=== PATIENT | female | born 1955 | race Caucasian/White ===

== ENCOUNTER 2018-01-19 12:03 | Emergency (ER) | payer OTHER ==
[2018-01-19 12:17] VITALS: BP 129/70; PULSE 84; RESP 18; TEMP 97.8
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
== END 2018-01-19 13:18 | disposition home or self-care (01) ==
LOC: EC 12:03
DX: M25.512 Pain in left shoulder (principal); M25.552 Pain in left hip; Z79.891 Long term (current) use of opiate analgesic; Z79.899 Other long term (current) drug therapy; Z98.890 Other specified postprocedural states; V49.49XA Driver injured in collision with other motor vehicles in traffic accident, initial encounter; Y93.89 Activity, other specified
CPT/HCPCS: 72100; 73502; 99284

== ENCOUNTER → 2019-07-20 | Outpatient (CLI) | payer OTHER ==
[2019-07-20 13:26] VITALS: BP 145/94; PULSE 88; RESP 18; TEMP 98; BMI 44.6
--- NOTE | 2019-07-20 14:23 | P.HPOB ---
History of Present Illness H&P Date: 07/20/19 Chief Complaint: The patient is here for her routine gynecologic exam and ma mmogram. This is a 64-year-old with an LMP of 2010. The patient is here to establish with this office. The patient is without gynecologic complaints and denies any postmenopausal bleeding. Review of Systems The patient believes she has gained about 13 pounds over the past year. She states her weight does fluctuate quite a bit during the year. She states her ty pical weight is 255 pounds. She denies respiratory, cardiac, or GI problems. 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 She used HRT from about 5794-4870. History of Any Multi-Drug Resistant Organisms: None Reported Past Surgical History: Back Surgery, Cholecystectomy, Orthopedic Surgery, To nsillectomy Additional Past Surgical History / Comment(s): [id number] (2nd, next after 10yrs), D&C. Past Anesthesia/Blood Transfusion Reactions: Previous Problems w/ Anesthesia, Motion Sickness, Postoperative Nausea & Vomiting (PONV) Additional Past Anesthesia/Blood Transfusion Reaction / Comment(s): NEVER HAS HAD BLOOD TRANSFUSION Past Psychological History: No Psychological Hx Reported Smoking Status: Never smoker Past Alcohol Use History: Rare (3 per year) Past Drug Use History: None Reported Additional History: She has been since 2013 and this is her third marriage. 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 - Past Family History Father Family Medical History: Cancer, COPD, Myocardial Infarction ([place]) Additional Family Medical History / Comment(s): MULT MYELOMA- AT AGE 84 Mother Family Medical History: Coronary Artery Disease (CAD), Diabetes Mellitus, Myocardial Infarction ([place]) Additional Family Medical History / Comment(s): LIVING AT AGE 81,HEART STENTS X 5 Medications and Allergies Home Medications Medication Instructions Recorded Confirmed Type Gabapentin [Neurontin] 300 mg PO DAILY 08/04/14 07/20/19 History Acetaminophen [Tylenol] 325 mg PO DAILY PRN 07/20/19 07/20/19 History Ibuprofen [Motrin] 800 mg PO BID 07/20/19 07/20/19 History Levothyroxine Sodium 100 mcg PO DAILY 07/20/19 07/20/19 History Phentermine HCl [Adipex-P] 37.5 mg PO AC-BRKFST 07/20/19 07/20/19 History buPROPion [Wellbutrin] 1 tab PO DAILY 07/20/19 07/20/19 History Allergies Allergy/AdvReac Type Severity Reaction Status Date / Time No Known Allergies Allergy Verified 07/20/19 13:26 Exam Vital Signs Temp Pulse Resp BP Pulse Ox 07/20/19 13:22 98.0 F 88 18 145/94 95 Intake and Output 07/19/19 07/20/19 07/20/19 22:59 06:59 14:59 Other: Weight 121.563 kg Repeat blood pressure 146/90. Height 5 feet 5 inches, weight 268 pounds, BMI 44.6. This is a well-developed well-nourished heavyset white female who is alert and oriented times 3 in no acute distress. HEENT: Within normal limits. NECK: Supple without mass or thyromegaly. CHEST AND LUNGS: Clear to auscultation. HEART: Regular rate and rhythm. BREASTS: Are without mass or discharge. AXILLARY EXAM: Negative for adenopathy. BACK: Negative for CVA tenderness. ABDOMEN: Soft, obese, nontender, without palpable masses. PELVIC EXAM: Normal external genitalia with mild atrophy. Cervix and vagina appear normal mild atrophy. There is no unusual discharge. There is no evidence of prolapse. The uterus is midposition, nongravid size and nontender. There are no palpable adnexal masses or tenderness. Bimanual examination is somewhat limited secondary to her size. RECTAL EXAM: Rectovaginal exam is negative for mass or tenderness and is negative for occult blood. EXTREMITIES: Nontender. IMPRESSION: 1. 64-year-old menopausal female with normal gynecologic exam. 2. Elevated blood pressure PLAN: 1. Pap smear was performed. 2. Self breast awareness was discussed with the patient. 3. Screening mammogram will be done today. 4. Osteoporosis prevention was discussed. I have stressed the importance of adequate calcium, vitamin D and regular exercise. Recommended amounts of calcium and vitamin D were also discussed. 5. I have recommended that she check her own blood pressures on a regular basis and follow-up with Dr. Matthew for blood pressure elevations. 6. She was advised to return in one year for her annual well woman exam.
--- NOTE | 2019-07-22 10:04 | MM ---
Reason for exam: screening (asymptomatic). Last mammogram was performed 3 years and 4 months ago. History: Patient is postmenopausal. Family history of breast cancer in paternal aunt at age 60. Took estrogen for 3 years beginning at age 55. Took progesterone for 3 years beginning at age 55. Physical Findings: A clinical breast exam by your physician is recommended on an annual basis and results should be correlated with mammographic findings. MG 3D Screening Mammo W/Cad Bilateral CC and MLO view(s) were taken. Prior study comparison: March 22, 2016, bilateral MG 3d screening mammo w/cad. September 24, 2013, bilateral digital screening mammo w/CAD. There are scattered fibroglandular densities. There is no discrete abnormality. No significant changes when compared with prior studies. ASSESSMENT: Negative, BI-RAD 1 RECOMMENDATION: Routine screening mammogram of both breasts in 1 year.
--- NOTE | 2019-07-27 18:35 | P.PN ---
Progress Note - Text Progress Note Date: 07/27/19 OUTPATIENT FOLLOW-UP NOTE TEST(S)/RESULTS: test results from 07/20/2019 include negative Pap smear and benign mammogram. METHOD OF NOTIFICATION: the patient was notified by phone. PATIENT COMMENTS: the patient is happy to hear these results. DIAGNOSIS: negative Pap smear and benign mammogram. DISCUSSION: The patient states she had a bone density test done which was normal in 2014. I have recommended that she repeat the bone density testing in 2019. PLAN: the patient is to return in one year for her annual well woman exam. Bone density test in 1 year.
== END | disposition home or self-care (01) ==
LOC: WWCWWP 13:13
PROVIDERS: ATTEND Obstetrics & Gynecology
DX: Z12.31 Encounter for screening mammogram for malignant neoplasm of breast (principal)
CPT/HCPCS: 77063; 77067

== ENCOUNTER 2020-08-19 16:45 | Inpatient (IN) | payer OTHER ==
[2020-08-19] MEDS ORDERED: ACETAMINOPHEN TAB 500 MG TAB PO STA (17:07)
[2020-08-19] MEDS ORDERED: ALBUTEROL HFA INHALER INHALATION STA (17:07)
--- NOTE | 2020-08-19 17:44 | ED ---
General Adult HPI - General Chief complaint: Shortness of Breath Stated complaint: SOB Time Seen by Provider: 08/19/20 16:55 Source: patient, RN notes reviewed, old records reviewed Mode of arrival: wheelchair Limitations: no limitations - History of Present Illness Initial comments: 65-year-old female presents emergency department today with complaints of weakness and shortness of breath. Patient reports that her entire family has cold that infection however her test was negative. She states that she seems to be the sickest with worsening difficulty breathing. Patient has a at-home pulse oximeter reportedly was 78 and one time today. She went to the emergency department with a pulse ox of 85% on room air. She reports that she has history of bronchitis but is a nonsmoker. Patient states that she has been seen by her primary care doctor and prescribed azithromycin, hydroxychloroquine as well as steroids. She reports despite taking his medications or symptoms seem to be worsening shortness of breath. - Related Data Home Medications Medication Instructions Recorded Confirmed Ibuprofen [Motrin] 800 mg PO TID 07/20/19 08/19/20 Levothyroxine Sodium 100 mcg PO DAILY 07/20/19 08/19/20 Phentermine HCl [Adipex-P] 37.5 mg PO AC-BRKFST 07/20/19 08/19/20 Dexamethasone [Decadron] 6 mg PO DAILY 08/19/20 08/19/20 Hydroxychloroquine Sulfate See Taper PO DIRECTED 08/19/20 08/19/20 [Plaquenil] Neomycin/Polymyxin B/Dexametha 1 drop LEFT EYE QID 08/19/20 08/19/20 [Itiqnl-Mkdbd-Niqjwlyu Eye Drop] buPROPion XL [Wellbutrin Xl] 150 mg PO DAILY 08/19/20 08/19/20 Allergies Allergy/AdvReac Type Severity Reaction Status Date / Time No Known Allergies Allergy Verified 08/19/20 18:37 Review of Systems ROS Statement: Those systems with pertinent positive or pertinent negative responses have been documented in the HPI. ROS Other: All systems not noted in ROS Statement are negative. 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 She used HRT from about 4152-6346. History of Any Multi-Drug Resistant Organisms: None Reported Past Surgical History: Back Surgery, Cholecystectomy, Orthopedic Surgery, Tonsillectomy Additional Past Surgical History / Comment(s): [id number] (2nd, next after 10yrs), D&C. Past Anesthesia/Blood Transfusion Reactions: Previous Problems w/ Anesthesia, Motion Sickness, Postoperative Nausea & Vomiting (PONV) Additional Past Anesthesia/Blood Transfusion Reaction / Comment(s): NEVER HAS HAD BLOOD TRANSFUSION Past Psychological History: No Psychological Hx Reported Smoking Status: Never smoker Past Alcohol Use History: Rare Past Drug Use History: None Reported - Past Family History Father Family Medical History: Cancer, COPD, Myocardial Infarction ([place]) Additional Family Medical History / Comment(s): MULT MYELOMA- AT AGE 84 Mother Family Medical History: Coronary Artery Disease (CAD), Diabetes Mellitus, Myocardial Infarction ([place]) Additional Family Medical History / Comment(s): LIVING AT AGE 81,HEART STENTS X 5 General Exam - General Exam Comments Initial Comments: Is a 65-year-old female. Patient appears in moderate discomfort saturation was 85% on room air. She is placed on 4 L of oxygen. Limitations: no limitations General appearance: alert, in no apparent distress Head exam: Present: atraumatic, normocephalic, normal inspection Eye exam: Present: normal appearance, PERRL, EOMI. Absent: scleral icterus, conjunctival injection, periorbital swelling ENT exam: Present: normal exam, mucous membranes moist Neck exam: Present: normal inspection. Absent: tenderness, meningismus, lymphadenopathy Respiratory exam: Present: normal lung sounds bilaterally, wheezes. Absent: respiratory distress, rales, rhonchi, stridor Cardiovascular Exam: Present: regular rate, normal rhythm, normal heart sounds. Absent: systolic murmur, diastolic murmur, rubs, gallop, clicks GI/Abdominal exam: Present: soft, normal bowel sounds. Absent: distended, tenderness, guarding, rebound, rigid Extremities exam: Present: normal inspection, full ROM, normal capillary refill. Absent: tenderness, pedal edema, joint swelling, calf tenderness Back exam: Present: normal inspection Neurological exam: Present: alert, oriented X3, CN II-XII intact Psychiatric exam: Present: normal affect, normal mood Skin exam: Present: warm, dry, intact, normal color. Absent: rash Course Vital Signs 08/19/20 08/19/20 16:47 19:38 Temperature 98.4 F 98.1 F Pulse Rate 84 67 Respiratory 20 22 Rate Blood Pressure 129/83 138/79 O2 Sat by Pulse 88 L 95 Oximetry EKG Findings - EKG Comments: EKG Findings:: EKG performed at 1823 shows normal sinus rhythm. Possible atrial enlargement. Left ventricular hypertrophy. Ventricularly of 71 bpm. Was 1:30 milliseconds. QRS duration is 84 ms. QT QTc is 400/434 ms. Medical Decision Making - Medical Decision Making 65-year-old female presents emergency room today with fatigue shortness of b reath. She is not hypoxic with oxygen saturation 85% on room air. She is placed on 4 L of oxygen has some improvement. Chest x-ray shows bilateral pneumonia. Her family tested positive for cocaine. However her initial test was negative. She will be retested today. Patient's labs are otherwise reviewed d-dimer was normal. Plantar markers are elevated. Patient's case was discussed with Dr. Ackerman whom discussed the case with Dr. crane to agrees for admission. Patient will be admitted at this time with IV fluids and oxygen supplementation. She was started on steroids and Rocephin. - Lab Data Result diagrams: 08/19/20 18:30 08/19/20 18:30 Lab Results 08/19/20 08/19/20 08/19/20 Range/Units 18:30 18:30 18:30 WBC 12.6 H (3.8-10.6) k/uL RBC 4.96 (3.80-5.40) m/uL Hgb 15.1 (11.4-16.0) gm/dL Hct 45.2 (34.0-46.0) % MCV 91.0 (80.0-100.0) fL MCH 30.4 (25.0-35.0) pg MCHC 33.4 (31.0-37.0) g/dL RDW 13.3 (11.5-15.5) % Plt Count 472 H (150-450) k/uL MPV 6.3 Neutrophils % 84 % Lymphocytes % 11 % Monocytes % 3 % Eosinophils % 1 % Basophils % 1 % Neutrophils # 10.6 H (1.3-7.7) k/uL Lymphocytes # 1.4 (1.0-4.8) k/uL Monocytes # 0.3 (0-1.0) k/uL Eosinophils # 0.1 (0-0.7) k/uL Basophils # 0.1 (0-0.2) k/uL PT 9.3 (9.0-12.0) sec INR 0.9 (<1.2) APTT 24.3 (22.0-30.0) sec D-Dimer 0.38 (<0.60) mg/L FEU Sodium 135 L (137-145) mmol/L Potassium 4.6 (3.5-5.1) mmol/L Chloride 102 (98-107) mmol/L Carbon Dioxide 28 (22-30) mmol/L Anion Gap 5 mmol/L BUN 20 H (7-17) mg/dL Creatinine 0.50 L (0.52-1.04) mg/dL Est GFR (CKD-EPI)AfAm >90 (>60 ml/min/1.73 sqM) Est GFR (CKD-EPI)NonAf >90 (>60 ml/min/1.73 sqM) Glucose 166 H (74-99) mg/dL Plasma Lactic Acid Jossue (0.7-2.0) mmol/L Calcium 8.7 (8.4-10.2) mg/dL Magnesium 2.1 (1.6-2.3) mg/dL Total Bilirubin 0.4 (0.2-1.3) mg/dL AST 76 H (14-36) U/L ALT 65 H (4-34) U/L Alkaline Phosphatase 83 (38-126) U/L Lactate Dehydrogenase 1038 H (313-618) U/L C-Reactive Protein 63.0 H (<10.0) mg/L Total Protein 7.0 (6.3-8.2) g/dL Albumin 3.5 (3.5-5.0) g/dL 08/19/20 Range/Units 18:30 WBC (3.8-10.6) k/uL RBC (3.80-5.40) m/uL Hgb (11.4-16.0) gm/dL Hct (34.0-46.0) % MCV (80.0-100.0) fL MCH (25.0-35.0) pg MCHC (31.0-37.0) g/dL RDW (11.5-15.5) % Plt Count (150-450) k/uL MPV Neutrophils % % Lymphocytes % % Monocytes % % Eosinophils % % Basophils % % Neutrophils # (1.3-7.7) k/uL Lymphocytes # (1.0-4.8) k/uL Monocytes # (0-1.0) k/uL Eosinophils # (0-0.7) k/uL Basophils # (0-0.2) k/uL PT (9.0-12.0) sec INR (<1.2) APTT (22.0-30.0) sec D-Dimer (<0.60) mg/L FEU Sodium (137-145) mmol/L Potassium (3.5-5.1) mmol/L Chloride (98-107) mmol/L Carbon Dioxide (22-30) mmol/L Anion Gap mmol/L BUN (7-17) mg/dL Creatinine (0.52-1.04) mg/dL Est GFR (CKD-EPI)AfAm (>60 ml/min/1.73 sqM) Est GFR (CKD-EPI)NonAf (>60 ml/min/1.73 sqM) Glucose (74-99) mg/dL Plasma Lactic Acid Jossue 1.3 (0.7-2.0) mmol/L Calcium (8.4-10.2) mg/dL Magnesium (1.6-2.3) mg/dL Total Bilirubin (0.2-1.3) mg/dL AST (14-36) U/L ALT (4-34) U/L Alkaline Phosphatase (38-126) U/L Lactate Dehydrogenase (313-618) U/L C-Reactive Protein (<10.0) mg/L Total Protein (6.3-8.2) g/dL Albumin (3.5-5.0) g/dL - Radiology Data Radiology results: report reviewed There is no new bilateral interstitial pneumonia compared old exam. Disposition Clinical Impression: COVID-19, Pneumonia, Hypoxia Disposition: ADMITTED IP TO THIS [facility] Condition: Stable Is patient prescribed a controlled substance at d/c from ED?: No Referrals: Noel Mckeon MD [Primary Care Provider] - 1-2 days Time of Disposition: 19:44
--- NOTE | 2020-08-19 18:04 | XR ---
EXAMINATION TYPE: XR chest 1V portable DATE OF EXAM: 08/19/2020 COMPARISON: 07/14/2015 HISTORY: Pneumonia. Short of breath. TECHNIQUE: FINDINGS: There is some interstitial infiltrate in both lungs with some coalescent density left lung base. Heart size is normal. There are no hilar masses. Mediastinum is normal. There is no pleural eff usion. IMPRESSION: There is new bilateral interstitial pneumonia compared to old exam.
[2020-08-19] MEDS ORDERED: SODIUM CHLORIDE 0.9% 1,000 ML IV ONE (18:14)
[2020-08-19] MEDS ORDERED: cefTRIAXone IN SWFI 1,000 MG/10 ML SYRINGE IVP STA (18:15)
[2020-08-19] MEDS ORDERED: cefTRIAXone IN SWFI 1,000 MG/10 ML SYRINGE IVP ONE (18:30)
[2020-08-19 18:48] LABS: Basophils # (A) 0.1 k/uL (0-0.2); Basophils % (A) 1 %; Eosinophils # (A) 0.1 k/uL (0-0.7); Eosinophils % (A) 1 %; HCT 45.2 % (34.0-46.0); HGB 15.1 gm/dL (11.4-16.0); Lymphocytes # (A) 1.4 k/uL (1.0-4.8); Lymphocytes % (A) 11 %; MCH 30.4 pg (25.0-35.0); MCHC 33.4 g/dL (31.0-37.0); Mean Platelet Volume 6.3; Monocytes # (A) 0.3 k/uL (0-1.0); Monocytes % (A) 3 %; Neutrophils # (A) 10.6 k/uL (1.3-7.7); Neutrophils % (A) 84 %; Platelet Count 472 k/uL (150-450); RBC 4.96 m/uL (3.80-5.40); RDW 13.3 % (11.5-15.5); WBC 12.6 k/uL (3.8-10.6)
[2020-08-19 19:01] LABS: ALT 65 U/L (4-34); AST 76 U/L (14-36); African American GFR (CKD) >90 (>60 ml/min/1.73 sqM); Albumin 3.5 g/dL (3.5-5.0); Alkaline Phosphatase 83 U/L (38-126); Anion Gap 5 mmol/L; Blood Urea Nitrogen 20 mg/dL (7-17); Calcium 8.7 mg/dL (8.4-10.2); Carbon Dioxide 28 mmol/L (22-30); Chloride 102 mmol/L (98-107); Glucose 166 mg/dL (74-99); LDH 1038 U/L (313-618); Magnesium 2.1 mg/dL (1.6-2.3); Non-African American GFR(CKD) >90 (>60 ml/min/1.73 sqM); Potassium 4.6 mmol/L (3.5-5.1); Sodium 135 mmol/L (137-145); Total Bilirubin 0.4 mg/dL (0.2-1.3)
[2020-08-19 19:07] LABS: D-Dimer 0.38 mg/L FEU (<0.60); INR 0.9 (<1.2); Partial Thromboplastin Time 24.3 sec (22.0-30.0); Prothrombin Time 9.3 sec (9.0-12.0)
[2020-08-19] MEDS: SODIUM CHLORIDE 0.9% 1,000 ML IV SCH (19:11)
[2020-08-19] MEDS ORDERED: DEXAMETHASONE SOD PHOSPHATE 10 MG/ML 1 ML VIAL IV STA (19:17)
[2020-08-19] MEDS ORDERED: ENOXAPARIN 40 MG/0.4 ML SYRINGE SQ STA (19:18)
[2020-08-19] MEDS ORDERED: NALOXONE 0.4 MG/ML 1 ML VIAL IV PRN (19:45)
[2020-08-19] MEDS ORDERED: ONDANSETRON 4 MG/2 ML VIAL IVP PRN (19:45)
[2020-08-19 23:54] LABS: Ferritin 360.3 ng/mL (10.0-291.0)
[2020-08-20] MEDS: NEOMYCIN-POLYMYXIN-DEXAMETH (3.5-10,000-0.1) DROPS 5 ML BTL LEFT EYE SCH ×3 (02:43→08:27)
[2020-08-20] MEDS: methylPREDNISolone SOD SUCCI 40 MG/ML 1 ML VIAL IV SCH ×4 (03:06→23:26)
[2020-08-20] MEDS: SODIUM CHLORIDE 0.9% 1,000 ML IV SCH ×3 (05:44→23:33)
[2020-08-20] MEDS: LEVOTHYROXINE 100 MCG TAB PO SCH (05:44)
[2020-08-20] MEDS: buPROPion XL 150 MG TAB.ER.24H PO SCH (08:25)
[2020-08-20] MEDS: GABAPENTIN 300 MG CAP PO SCH ×2 (12:13→20:28)
[2020-08-20] MEDS: ENOXAPARIN 40 MG/0.4 ML SYRINGE SQ SCH (12:13)
[2020-08-20] MEDS: FAMOTIDINE 20 MG TAB PO SCH ×2 (13:45→20:29)
[2020-08-20] MEDS: CHOLECALCIFEROL 1,000 UNIT TAB PO SCH (13:45)
[2020-08-20] MEDS: ASCORBIC ACID 500 MG TAB PO SCH (13:45)
[2020-08-20] MEDS: ZINC SULFATE 220 MG CAP PO SCH (13:45)
[2020-08-20] MEDS: ACETAMINOPHEN TAB 325 MG TAB PO PRN (17:23)
--- NOTE | 2020-08-20 23:42 | P.HPIM ---
History of Present Illness H&P Date: 08/20/20 Chief Complaint: Cough History of presenting complaint: This is a 65-year-old patient of Dr. carvalho. Chronic stable medical conditions include hypothyroid, herniated disc. She presented to the ER with complaints of weakness and shortness of breath. Her entire family has the cold and a COVID test was negative. Her pulse ox syndrome and was 78%. And in the ER it was 85%. She is a nonsmoker. Her primary resident care supervisor azithromycin, hydrocodone O'Stanislav and steroids. She took these but the symptoms are not getting any better. Symptoms have been going on for about 10 days. She is also had some fever and chills. Decreased appetite. Decrease in taste and smell. Had some headaches. Has some diarrhea. Also notices beige sputum. Feels a chest tightness for deep breath. Review of systems: GEN.: As above EYES: None HEENT: None NECK: None RESPIRATORY: [As above CARDIOVASCULAR: None GASTROINTESTINAL: [As above GENITOURINARY: None MUSCULOSKELETAL: None LYMPHATICS: None HEMATOLOGICAL: None PSYCHIATRY: None NEUROLOGICAL: None Past medical history to include: Hypothyroid, depression, herniated disc Social history: . Does not smoke or drink alcohol. 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 Physical examination: VITAL SIGNS: 98.4, 84, 20, 129/83, 88% on room air, did drop down to 90% on 6 L GENERAL: BMI 41.6, sitting up, tired. PSYCH: [Alert and oriented x3; mood and affect terri]l. NEUROLOGICAL: Cranial nerves grossly intact. Moving all 4 limbs Rest of the exam as per nursing in ER. INVESTIGATIONS, reviewed in the clinical context: White count 12.6 hemoglobin 15.1 and platelets 472 increased neutrophils d-dimer 0.38 potassium 4.6 bun 20 creatinine 0.50 CRP 63 Coronavirus PCF-detected EKG tracing personally reviewed by me-no sinus rhythm Chest x-ray film personally reviewed by me-bilateral scattered infiltrates Assessment: -Bilateral COVID 19 pneumonia -Possible gram-negative pneumonia, patient has beige sputum and left shift on CBC -Acute hypoxic respiratory failure from above -Hypothyroid -Morbid obesity BMI 41.6 Plan: Oxygen being supplemented. Consult pulmonary and ID. Patient is put on IV Solu-Medrol. Supplementations including zinc Pepcid vitamin C vitamin D been given. Subcu Lovenox. Care was discussed with the patient. Questions were answered. 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 She used HRT from about 0544-4628. History of Any Multi-Drug Resistant Organisms: None Reported Past Surgical History: Back Surgery, Cholecystectomy, Orthopedic Surgery, Tonsillectomy Additional Past Surgical History / Comment(s): [id number] (2nd, next after 10yrs), D&C. Past Anesthesia/Blood Transfusion Reactions: Previous Problems w/ Anesthesia, Motion Sickness, Postoperative Nausea & Vomiting (PONV) Additional Past Anesthesia/Blood Transfusion Reaction / Comment(s): NEVER HAS HAD BLOOD TRANSFUSION Past Psychological History: No Psychological Hx Reported Smoking Status: Never smoker Past Alcohol Use History: Rare Past Drug Use History: None Reported - Past Family History Father Family Medical History: Cancer, COPD, Myocardial Infarction ([place]) Additional Family Medical History / Comment(s): MULT MYELOMA- AT AGE 84 Mother Family Medical History: Coronary Artery Disease (CAD), Diabetes Mellitus, Myocardial Infarction ([place]) Additional Family Medical History / Comment(s): LIVING AT AGE 81,HEART STENTS X 5 Medications and Allergies Home Medications Medication Instructions Recorded Confirmed Type Ibuprofen [Motrin] 800 mg PO TID 07/20/19 08/19/20 History Levothyroxine Sodium 100 mcg PO DAILY 07/20/19 08/19/20 History Phentermine HCl [Adipex-P] 37.5 mg PO AC-BRKFST 07/20/19 08/19/20 History Dexamethasone [Decadron] 6 mg PO DAILY 08/19/20 08/19/20 History Hydroxychloroquine Sulfate See Taper PO DIRECTED 08/19/20 08/19/20 History [Plaquenil] buPROPion XL [Wellbutrin Xl] 150 mg PO DAILY 08/19/20 08/19/20 History Gabapentin 300 mg PO BID 08/20/20 08/20/20 History guaiFENesin [Mucinex] 1,200 mg PO BID 08/20/20 08/20/20 History Allergies Allergy/AdvReac Type Severity Reaction Status Date / Time No Known Allergies Allergy Verified 08/19/20 18:37 Physical Exam Vitals: Vital Signs Temp Pulse Pulse Resp BP BP Pulse Ox 08/20/20 05:36 97.7 F 67 18 154/88 90 L 08/20/20 05:30 20 08/20/20 04:15 67 19 154/88 90 L 08/20/20 00:10 70 20 128/76 96 08/19/20 19:38 98.1 F 67 22 138/79 95 08/19/20 16:47 98.4 F 84 20 129/83 88 L Intake and Output 08/19/20 08/20/20 08/20/20 22:59 06:59 14:59 Intake Total 200 Balance 200 Intake: Intake, IV Titration 200 Amount Sodium Chloride 0.9% 1, 200 000 ml @ 100 mls/hr IV . Q10H [facility] Rx#:[id number] Other: # Voids 1 # Bowel Movements 0 Weight 113.398 kg 113.398 kg Results CBC & Chem 7: 08/19/20 18:30 08/19/20 18:30 Labs: Abnormal Lab Results - Last 24 Hours (Table) 08/19/20 08/19/20 08/19/20 Range/Units 18:30 18:30 19:37 WBC 12.6 H (3.8-10.6) k/uL Plt Count 472 H (150-450) k/uL Neutrophils # 10.6 H (1.3-7.7) k/uL Sodium 135 L (137-145) mmol/L BUN 20 H (7-17) mg/dL Creatinine 0.50 L (0.52-1.04) mg/dL Glucose 166 H (74-99) mg/dL Ferritin 360.3 H (10.0-291.0) ng/mL AST 76 H (14-36) U/L ALT 65 H (4-34) U/L Lactate Dehydrogenase 1038 H (313-618) U/L C-Reactive Protein 63.0 H (<10.0) mg/L Coronavirus (PCR) Detected A (Not Detectd) Thrombosis Risk Factor Assmnt - Choose All That Apply Any of the Below Risk Factors Present?: Yes Each Factor Represents 1 point: Abnormal pulmonary function (COPD), Heart failure (<1month), Obesity (BMI >25) Each Risk Factor Represents 2 Points: Age 61-74 years Thrombosis Risk Factor Assessment Total Risk Factor Score: 5 Thrombosis Risk Factor Assessment Level: High Risk
[2020-08-21] MEDS: LEVOTHYROXINE 100 MCG TAB PO SCH (05:00)
[2020-08-21] MEDS: ACETAMINOPHEN TAB 325 MG TAB PO PRN ×3 (05:00→20:10)
[2020-08-21] MEDS: ZINC SULFATE 220 MG CAP PO SCH (08:04)
[2020-08-21] MEDS: GABAPENTIN 300 MG CAP PO SCH ×2 (08:04→20:07)
[2020-08-21] MEDS: ENOXAPARIN 40 MG/0.4 ML SYRINGE SQ SCH (08:04)
[2020-08-21] MEDS: ASCORBIC ACID 500 MG TAB PO SCH (08:04)
[2020-08-21] MEDS: CHOLECALCIFEROL 1,000 UNIT TAB PO SCH (08:04)
[2020-08-21] MEDS: methylPREDNISolone SOD SUCCI 40 MG/ML 1 ML VIAL IV SCH (08:04)
[2020-08-21] MEDS: buPROPion XL 150 MG TAB.ER.24H PO SCH (08:04)
[2020-08-21] MEDS: FAMOTIDINE 20 MG TAB PO SCH ×2 (08:04→20:07)
[2020-08-21] MEDS: SODIUM CHLORIDE 0.9% 1,000 ML IV SCH ×2 (10:47→12:45)
[2020-08-21] MEDS ORDERED: REMDESIVIR 200 MG in SODIUM CHLORIDE 0.9% 250 ML IVPB ONE (13:45)
--- NOTE | 2020-08-21 13:50 | P.CNPUL ---
History of Present Illness Consult date: 08/21/20 Reason for consult: pneumonia History of present illness: 65-year-old male patient and the patient came into the emergency department yesterday because of generalized weakness shortness of breath. The patient had a pulse ox of 70%. The patient is a nonsmoker. Apparently symptoms of been progressively getting worse over the past 10 days. she originally got sick around giving and her symptoms were waxing and waning and progressively s he got worse and she ultimately had come to the hospital because of worsening shortness of breath. He had some fever and chills. He had diminished appetite. He had decreased taste and smell. The patient tested positive for COVID 19 by PCR and the patient is currently being treated for this pneumonia. The patient was admitted because of 12.6. The patient has a platelet count of 472. Preservation. Positive normal. D-dimer is not elevated at 0.53. The ferritin level is at 360, the patient has a mild transaminitis with an AST of 76, ALP of 65 with an LDH of 1038. CRP is at 63 and appropriate LEVEL IS AT 0.04. REST X- RAY SHOWING NEW BILATERAL INTERSTITIAL INFILTRATION PERIHILAR. THE PATIENT IS CURRENTLY ON OXYGEN AND THE PATIENT IS CURRENTLY ON 15 L TO MAINTAIN A SATURATION ABOVE 90%. She is afebrile. Review of Systems Constitutional: Reports fatigue, Reports weakness Eyes: denies as per HPI, denies blurred vision, denies bulging eye, denies decreased vision, denies diplopia, denies discharge, denies dry eye, denies irritation, denies itching, denies pain, denies photophobia, denies loss of peripheral vision, denies loss of vision, denies tunnel vision/blind spots Ears: deny: decreased hearing, ear discharge, earache, tinnitus Ears, nose, mouth and throat: Denies headache, Denies sore throat Breasts: absent: as per HPI, change in shape, gynecomastia, masses, nipple discharge, pain, skin changes, swelling Cardiovascular: Reports decreased exercise tolerance, Reports dyspnea on exertion Respiratory: Reports cough, Reports dyspnea Gastrointestinal: Reports as per HPI Genitourinary: Reports as per HPI Menstruation: Reports as per HPI Musculoskeletal: Reports as per HPI Musculoskeletal: absent: ankle pain, ankle stiffness, ankle swelling Psychiatric: Reports as per HPI Endocrine: Reports as per HPI, Reports fatigue Hematologic/Lymphatic: Reports as per HPI Allergic/Immunologic: Reports as per HPI Past Medical History Past Medical History: Musculoskeletal Disorder, Thyroid Disorder Additional Past Medical History / Comment(s): HERNIATED DISCS TO BACK-N/T RT LEG AND FOOT, vertigo. 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 She used HRT from about 5602-0419. History of Any Multi-Drug Resistant Organisms: None Reported Past Surgical History: Back Surgery, Cholecystectomy, Orthopedic Surgery, Tonsillectomy Additional Past Surgical History / Comment(s): [id number] (2nd, next after 10yrs), D&C. Past Anesthesia/Blood Transfusion Reactions: Previous Problems w/ Anesthesia, Motion Sickness, Postoperative Nausea & Vomiting (PONV) Additional Past Anesthesia/Blood Transfusion Reaction / Comment(s): NEVER HAS HAD BLOOD TRANSFUSION Past Psychological History: No Psychological Hx Reported Smoking Status: Never smoker Past Alcohol Use History: Rare Past Drug Use History: None Reported - Past Family History Father Family Medical History: Cancer, COPD, Myocardial Infarction ([place]) Additional Family Medical History / Comment(s): MULT MYELOMA- AT AGE 84 Mother Family Medical History: Coronary Artery Disease (CAD), Diabetes Mellitus, Myocardial Infarction ([place]) Additional Family Medical History / Comment(s): LIVING AT AGE 81,HEART STENTS X 5 Medications and Allergies Home Medications Medication Instructions Recorded Confirmed Type Ibuprofen [Motrin] 800 mg PO TID 07/20/19 08/19/20 History Levothyroxine Sodium 100 mcg PO DAILY 07/20/19 08/19/20 History Phentermine HCl [Adipex-P] 37.5 mg PO AC-BRKFST 07/20/19 08/19/20 History Dexamethasone [Decadron] 6 mg PO DAILY 08/19/20 08/19/20 History Hydroxychloroquine Sulfate See Taper PO DIRECTED 08/19/20 08/19/20 History [Plaquenil] buPROPion XL [Wellbutrin Xl] 150 mg PO DAILY 08/19/20 08/19/20 History Gabapentin 300 mg PO BID 08/20/20 08/20/20 History guaiFENesin [Mucinex] 1,200 mg PO BID 08/20/20 08/20/20 History Allergies Allergy/AdvReac Type Severity Reaction Status Date / Time No Known Allergies Allergy Verified 08/19/20 18:37 Physical Exam Vitals: Vital Signs Temp Pulse Resp BP Pulse Ox 08/21/20 11:20 97.8 F 69 18 148/81 90 L 08/21/20 08:58 90 L 08/21/20 05:52 20 96 08/21/20 05:25 22 90 L 08/21/20 05:20 22 78 L 08/21/20 05:01 20 84 L 08/21/20 04:55 20 74 L 08/21/20 04:50 98.2 F 76 16 160/94 90 L 08/20/20 22:55 97.9 F 68 16 166/82 88 L 08/20/20 18:00 90 L 08/20/20 16:45 98.4 F 76 18 132/76 90 L Intake and Output 08/20/20 08/21/20 08/21/20 22:59 06:59 14:59 Other: Voiding Method Toilet # Voids 1 1 Gen. appearance she is calm comfortable mild degree of respiratory distress currently on 15 L of oxygen by nasal cannula Head exam was generally normal. There was no scleral icterus or corneal arcus. Mucous membranes were moist. Neck was supple and without jugular venous distension, thyromegaly, or carotid bruits. Carotids were easily palpable bilaterally. There was no adenopathy. Lungs sounds are diminished and the patient is contacted the lung bases. Cardiac exam revealed the PMI to be normally situated and sized. The rhythm was regular and no extrasystoles were noted during several minutes of auscultation. The first and second heart sounds were normal and physiologic splitting of the second heart sound was noted. There were no murmurs, rubs, clicks, or gallops. Abdomen abdomen Abdominal exam revealed normal bowel sounds. The abdomen was soft, non-tender, and without masses, organomegaly, or appreciable enlargement of the abdominal aorta. Examination of the extremities revealed easily palpable radial, femoral and ped al pulses. There was no cyanosis, clubbing or edema. Examination of the skin revealed no evidence of significant rashes, suspicious appearing nevi or other concerning lesions. Results - Laboratory Findings CBC and BMP: 08/19/20 18:30 08/19/20 18:30 PT/INR, D-dimer PT 9.3 sec (9.0-12.0) 08/19/20 18:30 INR 0.9 (<1.2) 08/19/20 18:30 D-Dimer 0.53 mg/L FEU (<0.60) 08/21/20 06:46 Abnormal lab findings: Abnormal Labs 08/19/20 08/19/20 08/19/20 18:30 18:30 19:37 WBC 12.6 H Plt Count 472 H Neutrophils # 10.6 H Sodium 135 L BUN 20 H Creatinine 0.50 L Glucose 166 H Ferritin 360.3 H AST 76 H ALT 65 H Lactate Dehydrogenase 1038 H C-Reactive Protein 63.0 H Coronavirus (PCR) Detected A 08/21/20 06:46 WBC Plt Count Neutrophils # Sodium BUN Creatinine Glucose Ferritin AST ALT Lactate Dehydrogenase C-Reactive Protein 6.7 H Coronavirus (PCR) - Diagnostic Findings Chest x-ray: image reviewed Assessment and Plan Plan: 1 acute bilateral pneumonia secondary to rotavirus/Covid 19 infection and the patient was probably diagnosedbn and became symptomatic less than 10 days ago and the patient will be an adequate candidate for steroids and Remdesivir 2 acute hypoxic respiratory failure currently on 15 L of oxygen by nasal cannula 3 elevated inflammatory markers, mild 4 obesity 5 chronic back pain Plan Utilizing a combination of Decadron 6 mg by mouth daily, Remdesivir , vitamin C, vitamin D, zinc, melatonin, and the patient will be gradually wean off FiO2 as tolerated to maintain saturation above 90%. Provide an incentive spirometer. Monitor inflammatory markers. Utilize Lovenox for DVT prophylaxis. We'll continue to follow.
[2020-08-21] MEDS: dexAMETHasone 2 MG TAB PO SCH (14:41)
--- NOTE | 2020-08-21 15:16 | P.CONS ---
<Alexandra Garcia A - Last Filed: 08/21/20 15:06> History of Present Illness - Reason for Consult Consult date: 08/21/20 - History of Present Illness HISTORY OF PRESENT ILLNESS This is a 65-year-old female had onset of symptoms 10 days ago with fever, cough, shortness of breath. She states for the first 6 or 7 day she was feeling okay but by day #8 she started feeling terrible. She bought pulse ox reader and initially she was running 90% but then dropped down to 78%. She was doing virtual visits with her physician's office and was put on dexamethasone, is azithromycin and completed course. On recheck, patient was placed on hydroxychloroquine. She denies having any abdominal pain. No diarrhea. She complains of a cough with chest pain with coughing, dark beige sputum production. She complains of chest pain with deep inspiration. She is feeling improvement since admission but continues to have cough and shortness of breath. Pulse ox is 90% on 15 L nasal cannula, heart rate 69, blood pressure 140/81. She has been afebrile. W BC 12.6. Lymphocytes normal. Initial d-dimer 0.38 and repeat 0.53. Creatinine 0.5. Ferritin level CCCLX.3. AST 76, ALT 65, alkaline phosphatase 83. LDH 1038. C-reactive protein 63 with repeat of 6.7. COVID-19 positive. Pro-calcitonin was 0.04 and repeat 0.02. Chest x-ray reveals new bilateral interstitial pneumonia. Patient has been started on ceftriaxone, dexamethasone 6 mg oral daily, Lovenox 40 mg subcu daily, supplements. REVIEW OF SYSTEMS Constitutional: No fever, no chills, no night sweats. No weight change. No weakness, fatigue or lethargy. No daytime sleepiness. EENT: No headache. No blurred vision or double vision, no loss of vision. No loss of Hearing, no ringing in the ears, no dizziness. No nasal drainage or congestion. No epistaxis. No sore throat. Lungs: No shortness of breath, cough, no sputum production. No wheezing. Cardiovascular: No chest pain, no lower extremity edema. No palpitations. No paroxysmal nocturnal dyspnea. No orthopnea. No lightheadedness or dizziness. No syncopal episodes. Abdominal: No abdominal pain. No nausea, vomiting. No diarrhea. No constipation. No bloody or tarry stools.. No loss of appetite. Genitourinary: No dysuria, increased frequency, urgency. No urinary retention. Musculoskeletal: No myalgias. No muscle weakness, no gait dysfunction, no frequent falls. No back pain. No neck pain. Integumentary: No wounds, no lesions. No rash or pruritus. No unusual bruising. No change in hair or nails. Neurologic: No aphasia. No facial droop. No change in mentation. No head injury. No headache. No paralysis. No paresthesia. Endocrine: No abnormal blood sugars. No weight change. PHYSICAL EXAMINATION Gen: This is a morbidly obese 65-year-old female. HEENT: Head is atraumatic, normocephalic. Pupils equal, round. Sclerae is anicteric. NECK: Supple. No JVD. LUNGS: Diminished in the bilateral bases. No wheezes or rhonchi. No intercostal retractions. HEART: Regular rate and rhythm. No murmur. ABDOMEN: Soft. Bowel sounds are present. No masses. No tenderness. EXTREMITIES: No pedal edema. No calf tenderness. NEUROLOGICAL: Patient is awake, alert and oriented x3. ASSESSMENT Covid 19 pneumonia Acute hypoxic respiratory failure Elevated inflammatory markers PLAN Order Remdesivir 200 mg 1 followed by 100 mg to complete a total of 5 days Continue ceftriaxone, dexamethasone 6 mg oral daily, Lovenox 40 mg subcu daily, supplements Continue oxygen supplementation Blood culture in progress The above dictated assessment and findings were discussed with Dr. Zazueta. The impression and plan of care have been directed as dictated. Alexandra Garcia nurse practitioner acting as scribe for Dr. Zazueta. 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 She used HRT from about 3490-9830. History of Any Multi-Drug Resistant Organisms: None Reported Past Surgical History: Back Surgery, Cholecystectomy, Orthopedic Surgery, Tonsillectomy Additional Past Surgical History / Comment(s): [id number] (2nd, next after 10yrs), D&C. Past Anesthesia/Blood Transfusion Reactions: Previous Problems w/ Anesthesia, Motion Sickness, Postoperative Nausea & Vomiting (PONV) Additional Past Anesthesia/Blood Transfusion Reaction / Comm: NEVER HAS HAD BLOOD TRANSFUSION Past Psychological History: No Psychological Hx Reported Smoking Status: Never smoker Past Alcohol Use History: Rare Past Drug Use History: None Reported - Past Family History Father Family Medical History: Cancer, COPD, Myocardial Infarction ([place]) Additional Family Medical History / Comment(s): KING MYELOMA- AT AGE 84 Mother Family Medical History: Coronary Artery Disease (CAD), Diabetes Mellitus, Myocardial Infarction ([place]) Additional Family Medical History / Comment(s): LIVING AT AGE 81,HEART STENTS X 5 Medications and Allergies Home Medications Medication Instructions Recorded Confirmed Type Ibuprofen [Motrin] 800 mg PO TID 07/20/19 08/19/20 History Levothyroxine Sodium 100 mcg PO DAILY 07/20/19 08/19/20 History Phentermine HCl [Adipex-P] 37.5 mg PO AC-BRKFST 07/20/19 08/19/20 History Dexamethasone [Decadron] 6 mg PO DAILY 08/19/20 08/19/20 History Hydroxychloroquine Sulfate See Taper PO DIRECTED 08/19/20 08/19/20 History [Plaquenil] buPROPion XL [Wellbutrin Xl] 150 mg PO DAILY 08/19/20 08/19/20 History Gabapentin 300 mg PO BID 08/20/20 08/20/20 History guaiFENesin [Mucinex] 1,200 mg PO BID 08/20/20 08/20/20 History Allergies Allergy/AdvReac Type Severity Reaction Status Date / Time No Known Allergies Allergy Verified 08/19/20 18:37 Physical Exam Vitals: Vital Signs Temp Pulse Resp BP Pulse Ox 08/21/20 11:20 97.8 F 69 18 148/81 90 L 08/21/20 08:58 90 L 08/21/20 05:52 20 96 08/21/20 05:25 22 90 L 08/21/20 05:20 22 78 L 08/21/20 05:01 20 84 L 08/21/20 04:55 20 74 L 08/21/20 04:50 98.2 F 76 16 160/94 90 L 08/20/20 22:55 97.9 F 68 16 166/82 88 L 08/20/20 18:00 90 L 08/20/20 16:45 98.4 F 76 18 132/76 90 L Intake and Output 08/20/20 08/21/20 08/21/20 22:59 06:59 14:59 Other: Voiding Method Toilet # Voids 1 1 Results CBC & Chem 7: 08/19/20 18:30 12 18:30 Labs: Abnormal Lab Results - Last 24 Hours (Table) 08/21/20 Range/Units 06:46 C-Reactive Protein 6.7 H (0.0-0.8) mg/dL Microbiology - Last 24 Hours (Table) 08/19/20 18:30 Blood Culture - Preliminary Blood No Growth after 24 hours <Rickey Zazueta - Last Filed: 08/21/20 22:27> Physical Exam Vitals: Vital Signs Temp Pulse Pulse Resp BP Pulse Ox 08/21/20 18:00 92 L 08/21/20 16:40 98.0 F 77 18 160/96 95 08/21/20 11:20 97.8 F 69 18 148/81 90 L 08/21/20 08:58 90 L 08/21/20 05:52 20 96 08/21/20 05:25 22 90 L 08/21/20 05:20 22 78 L 08/21/20 05:01 20 84 L 08/21/20 04:55 20 74 L 08/21/20 04:50 98.2 F 76 16 160/94 90 L 08/20/20 22:55 97.9 F 68 16 166/82 88 L Intake and Output 08/21/20 08/21/20 08/21/20 06:59 14:59 22:59 Other: # Voids 1 5 Results CBC & Chem 7: 08/19/20 18:30 08/19/20 18:30 Labs: Abnormal Lab Results - Last 24 Hours (Table) 08/21/20 Range/Units 06:46 C-Reactive Protein 6.7 H (0.0-0.8) mg/dL Microbiology - Last 24 Hours (Table) 08/19/20 18:30 Blood Culture - Preliminary Blood No Growth after 48 hours Assessment and Plan Assessment: Patient with acute COVID-19 pneumonia in this patient with requiring high flow nasal cannula oxygen and high risk of respiratory failure the patient symptoms started about 10 days ago however she will benefit from remdesivir this has been discussed in detail with the pharmacist who has to get approval from a CONTROL CHEMIST for infusion of remdesivir (1) Pneumonia due to COVID-19 virus Current Visit: Yes Status: Acute Code(s): U07.1 - COVID-19; J12.89 - OTHER VIRAL PNEUMONIA SNOMED Code(s): 818893840909894169 Plan: 1-patient will be started on remdesivir 200 mg day 1 followed by 100 milligrams daily x4 more doses 2-dexamethasone 6 mg daily along with Lovenox and zinc sulfate 3-droplet isolation and respiratory support We will follow on clinical condition and cultures to further adjust medication if needed Thank you for this consultation we will follow the patient along with you Time with Patient: Greater than 30
[2020-08-22] MEDS: IBUPROFEN 400 MG TAB PO PRN ×2 (00:16→05:57)
[2020-08-22] MEDS: SODIUM CHLORIDE 0.9% 1,000 ML IV SCH ×4 (02:22→20:37)
[2020-08-22] MEDS: ACETAMINOPHEN TAB 325 MG TAB PO PRN ×3 (04:13→21:33)
[2020-08-22] MEDS: LEVOTHYROXINE 100 MCG TAB PO SCH (05:55)
[2020-08-22] MEDS: ENOXAPARIN 40 MG/0.4 ML SYRINGE SQ SCH (10:11)
[2020-08-22] MEDS: ZINC SULFATE 220 MG CAP PO SCH (10:12)
[2020-08-22] MEDS: ASCORBIC ACID 500 MG TAB PO SCH (10:12)
[2020-08-22] MEDS: FAMOTIDINE 20 MG TAB PO SCH ×2 (10:12→20:36)
[2020-08-22] MEDS: CHOLECALCIFEROL 1,000 UNIT TAB PO SCH (10:12)
[2020-08-22] MEDS: GABAPENTIN 300 MG CAP PO SCH ×2 (10:12→20:36)
[2020-08-22] MEDS: dexAMETHasone 2 MG TAB PO SCH (10:12)
[2020-08-22] MEDS: buPROPion XL 150 MG TAB.ER.24H PO SCH (10:12)
--- NOTE | 2020-08-22 11:04 | P.PN ---
Progress Note - Text Progress Note Date: 08/21/20 Chief Complaint: Cough History of presenting complaint: This is a 65-year-old patient of Dr. carvalho. Chronic stable medical conditions include hypothyroid, herniated disc. She presented to the ER with complaints of weakness and shortness of breath. Her entire family has the cold and a COVID test was negative. Her pulse ox syndrome and was 78%. And in the ER it was 85%. She is a nonsmoker. Her primary neurocritical care physician azithromycin, hydrocodone O'Stanislav and steroids. She took these but the symptoms are not getting any better. Symptoms have been going on for about 10 days. She is also had some fever and chills. Decreased appetite. Decrease in taste and smell. Had some headaches. Has some diarrhea. Also notices beige sputum. Feels a chest tightness for deep breath. Admitted with bilateral COVID pneumonia, possible gram-negative pneumonia, acute hypoxic respiratory failure. Started on IV Solu-Medrol Lovenox IV ceftriaxone. Today-short of breath.-Oxygen-high flow. Cough. Tired. Eating fairly well Review of systems: Was done for constitutional, cardiovascular, GI, pulmonary. relevant finding as above Current medications reviewed in today's electronic records Physical examination: VITAL SIGNS: 97.8, 69, 18, 148/81, 90% on 15 L GENERAL: Sitting up, tired short of breath. PSYCH: [Alert and oriented x3; mood and affect anxious]l. NEUROLOGICAL: Cranial nerves grossly intact. Moving all 4 limbs Rest of the exam as per nursing, pulmonary INVESTIGATIONS, reviewed in the clinical context: August 21: D-dimer 0.53 CRP 6.7 pro-calcitonin 0.02 White count 12.6 hemoglobin 15.1 and platelets 472 increased neutrophils d-dimer 0.38 potassium 4.6 bun 20 creatinine 0.50 CRP 63 Coronavirus PCF-detected EKG tracing personally reviewed by me-no sinus rhythm Chest x-ray film personally reviewed by me-bilateral scattered infiltrates Assessment: -Bilateral COVID 19 pneumonia I will slow to respond -Possible gram-negative pneumonia, patient has beige sputum and left shift on CBC-on ceftriaxone -Acute hypoxic respiratory failure from above-worsening on 15 L nasal cannula -Hypothyroid -Morbid obesity BMI 41.6 Plan: Continue IV Solu-Medrol. , High flow oxygen 15 L, Subcu Lovenox. Care was discussed with the patient. Follows with pulmonary
[2020-08-22] MEDS ORDERED: REMDESIVIR 200 MG in SODIUM CHLORIDE 0.9% 250 ML IVPB ONE (12:00)
--- NOTE | 2020-08-22 12:46 | P.PN ---
Subjective Progress Note Date: 08/22/20 65-year-old male patient and the patient came into the emergency department yesterday because of generalized weakness shortness of breath. The patient had a pulse ox of 70%. The patient is a nonsmoker. Apparently symptoms of been progressively getting worse over the past 10 days. she originally got sick around and her symptoms were waxing and waning and progressively she got worse and she ultimately had come to the hospital because of worsening shortness of breath. He had some fever and chills. He had diminished appetite. He had decreased taste and smell. The patient tested positive for COVID 19 by PCR and the patient is currently being treated for this pneumonia. The patient was admitted because of 12.6. The patient has a platelet count of 472. Preservation. Positive normal. D-dimer is not elevated at 0.53. The ferritin level is at 360, the patient has a mild transaminitis with an AST of 76, ALP of 65 with an LDH of 1038. CRP is at 63 and appropriate LEVEL IS AT 0.04. REST X- RAY SHOWING NEW BILATERAL INTERSTITIAL INFILTRATION PERIHILAR. THE PATIENT IS CURRENTLY ON OXYGEN AND THE PATIENT IS CURRENTLY ON 15 L TO MAINTAIN A SATURATION ABOVE 90%. She is afebrile. on today's evaluation of 08/22/2020, the patient is a bit struggling with her breathing. She was able to sit up on a chair or morning. Noted the patient was started on a combination of oxygen delivery systems including high flow oxygen at 15 L nasal cannula and 100% nonrebreather facemask to maintain a saturation between 88-92%. She has some limited cough. No significant sputum production. She is laying comfortably in bed. she is having some mild degree of shortness of breath even at rest. She is not using her muscles of breathing. Note that the patient was started on a combination of Decadron and Remdesivir I'm also inclining giving her a unit of convalescence as her condition. no nausea. No vomiting. No diarrhea. No abdominal pain. No altered mentation. Objective - Vital Signs Vital signs: Vital Signs Temp 98.1 F 08/22/20 11:00 Pulse 67 08/22/20 11:00 Resp 20 08/22/20 11:00 BP 171/78 08/22/20 11:00 Pulse Ox 90 L 08/22/20 11:00 Intake & Output 08/21/20 08/22/20 08/22/20 18:59 06:59 18:59 Intake Total 1680 Output Total 800 Balance 880 Intake: Intake, IV Titration 1200 Amount Sodium Chloride 0.9% 1, 1200 000 ml @ 100 mls/hr IV . Q10H [facility] Rx#:[id number] Oral 480 Output: Urine 800 Other: Voiding Method Toilet Bedside Commode # Voids 5 2 # Bowel Movements 0 - Exam Gen. appearance she is calm comfortable mild degree of respiratory distress c urrently on 15 L of oxygen by nasal cannula in addition to 100% nonrebreather facemask. Head exam was generally normal. There was no scleral icterus or corneal arcus. Mucous membranes were moist. Neck was supple and without jugular venous distension, thyromegaly, or carotid bruits. Carotids were easily palpable bilaterally. There was no adenopathy. Lungs sounds are diminished and the patient is contacted the lung bases. Cardiac exam revealed the PMI to be normally situated and sized. The rhythm was regular and no extrasystoles were noted during several minutes of auscultation. The first and second heart sounds were normal and physiologic splitting of the second heart sound was noted. There were no murmurs, rubs, clicks, or gallops. Abdomen abdomen Abdominal exam revealed normal bowel sounds. The abdomen was soft, non-tender, and without masses, organomegaly, or appreciable enlargement of the abdominal aorta. Examination of the extremities revealed easily palpable radial, femoral and pe ilan pulses. There was no cyanosis, clubbing or edema. Examination of the skin revealed no evidence of significant rashes, suspicious appearing nevi or other concerning lesions. - Labs CBC & Chem 7: 08/19/20 18:30 08/19/20 18:30 Labs: Microbiology - Last 24 Hours (Table) 08/19/20 18:30 Blood Culture - Preliminary Blood No Growth after 48 hours Assessment and Plan Plan: 1 acute bilateral pneumonia secondary to Covid 19 infection and the patient was probably diagnosed and became symptomatic less than 10 days ago and the patient will be an adequate candidate for steroids and Remdesivir 2 acute hypoxic respiratory failure currently on 15 L of oxygen by nasal cannula, in addition to 100% nonrebreather facemask. 3 elevated inflammatory markers, mild 4 obesity 5 chronic back pain Plan Utilizing a combination of Decadron 6 mg by mouth daily, Remdesivir , vitamin C, vitamin D, zinc, melatonin, and the patient will be gradually wean off FiO2 as tolerated to maintain saturation above 90%. Provide an incentive spirometer. Monitor inflammatory markers. there has been some progression in her condition with worsening in the oxygenation compared to yesterday. She is currently stable. Monitor the pulse ox. Repeat chest x-ray in the morning. Repeat all of the inflammatory markers in the morning. Proceed with units of Novolin plasma.
[2020-08-22] MEDS ORDERED: REMDESIVIR 100 MG in SODIUM CHLORIDE 0.9% 250 ML IVPB SCH (13:45)
--- NOTE | 2020-08-22 14:15 | P.PN ---
Subjective Progress Note Date: 08/22/20 HISTORY OF PRESENT ILLNESS This is a 65-year-old female had onset of symptoms 10 days ago with fever, cough, shortness of breath. She states for the first 6 or 7 day she was feeling okay but by day #8 she started feeling terrible. She bought pulse ox reader and initially she was running 90% but then dropped down to 78%. She was doing virtual visits with her physician's office and was put on dexamethasone, is azithromycin and completed course. On recheck, patient was placed on hydroxychloroquine. She denies having any abdominal pain. No diarrhea. She complains of a cough with chest pain with coughing, dark beige sputum production. She complains of chest pain with deep inspiration. She is feeling improvement since admission but continues to have cough and shortness of breath. Pulse ox is 90% on 15 L nasal cannula, heart rate 69, blood pressure 140/81. She has been afebrile. W BC 12.6. Lymphocytes normal. Initial d-dimer 0.38 and repeat 0.53. Creatinine 0.5. Ferritin level CCCLX.3. AST 76, ALT 65, alkaline phosphatase 83. LDH 1038. C-reactive protein 63 with repeat of 6.7. COVID-19 positive. Pro-calcitonin was 0.04 and repeat 0.02. Chest x-ray reveals new bilateral interstitial pneumonia. Patient has been started on ceftriaxone, dexamethasone 6 mg oral daily, Lovenox 40 mg subcu daily, supplements. 08/22: Patient is to start Remdesivir today and Dr. White has also ordered convalescent plasma. Patient continues to have a mild wheeze. She denies having any chest pain but does have chest pain with deep breathing. Positive cough. No nausea, vomiting or diarrhea. No abdominal pain. Patient has been afebrile, heart rate 67, blood pressure 171/78. Pulse ox 90% on 15 L high flow nasal cannula. PHYSICAL EXAMINATION Gen: This is a morbidly obese 65-year-old female. HEENT: Head is atraumatic, normocephalic. Pupils equal, round. Sclerae is anicteric. NECK: Supple. No JVD. LUNGS: Diminished in the bilateral bases. Mild expiratory wheeze. No intercostal retractions. HEART: Regular rate and rhythm. No murmur. ABDOMEN: Soft. Bowel sounds are present. No masses. No tenderness. EXTREMITIES: No pedal edema. No calf tenderness. NEUROLOGICAL: Patient is awake, alert and oriented x3. ASSESSMENT Covid 19 pneumonia Acute hypoxic respiratory failure Elevated inflammatory markers PLAN Start Remdesivir 200 mg 1 followed by 100 mg to complete a total of [address] White has ordered convalescent plasma Continue ceftriaxone, dexamethasone 6 mg oral daily, Lovenox 40 mg subcu daily, supplements Continue oxygen supplementation Blood culture in progress The above dictated assessment and findings were discussed with Dr. Zazueta. The impression and plan of care have been directed as dictated. Alexandra Garcia nurse practitioner acting as scribe for Dr. Zazueta. Objective - Vital Signs Vital signs: Vital Signs Temp 98.1 F 08/22/20 11:00 Pulse 67 08/22/20 11:00 Resp 20 08/22/20 11:00 BP 171/78 08/22/20 11:00 Pulse Ox 90 L 08/22/20 11:00 Intake & Output 08/21/20 08/22/20 08/22/20 18:59 06:59 18:59 Intake Total 1680 Output Total 800 Balance 880 Intake: Intake, IV Titration 1200 Amount Sodium Chloride 0.9% 1, 1200 000 ml @ 100 mls/hr IV . Q10H [facility] Rx#:[id number] Oral 480 Output: Urine 800 Other: Voiding Method Toilet Bedside Commode # Voids 5 2 # Bowel Movements 0 - Labs CBC & Chem 7: 08/19/20 18:30 08/19/20 18:30 Labs: Microbiology - Last 24 Hours (Table) 08/19/20 18:30 Blood Culture - Preliminary Blood No Growth after 48 hours
--- NOTE | 2020-08-22 23:35 | P.PN ---
Progress Note - Text Progress Note Date: 08/22/20 Chief Complaint: Cough History of presenting complaint: This is a 65-year-old patient of Dr. carvalho. Chronic stable medical conditions include hypothyroid, herniated disc. She presented to the ER with complaints of weakness and shortness of breath. Her entire family has the cold and a COVID test was negative. Her pulse ox at home and was 78%. And in the ER it was 85%. She is a nonsmoker. Her primary personal caregiver azithromycin, Hydrochlroquin and steroids. She took these but the symptoms are not getting any better. Symptoms have been going on for about 10 days. She is also had some fever and chills. Decreased appetite. Decrease in taste and smell. Had some headaches. Has some diarrhea. Also notices beige sputum. Feels a chest tightness for deep breath. Admitted with bilateral COVID pneumonia, possible gram-negative pneumonia, acute hypoxic respiratory failure. Started on IV Solu-Medrol Lovenox IV ceftriaxone. Remdesivir-added. Today-more short of breath.-Flow oxygen 15 L. Some cough. Tired Review of systems: Was done for constitutional, cardiovascular, GI, pulmonary. relevant finding as above Active Medications Acetaminophen (Acetaminophen Tab 325 Mg Tab) 650 mg PO Q6HR PRN PRN Reason: Mild Pain or Fever > 100.5 Last Admin: 08/22/20 21:33 Dose: 650 mg Documented by: Ascorbic Acid (Ascorbic Acid 500 Mg Tab) 500 mg PO DAILY [facility] Last Admin: 08/22/20 10:12 Dose: 500 mg Documented by: Bupropion HCl (Bupropion Xl 150 Mg Tab.Er.24h) 150 mg PO DAILY [facility] Last Admin: 08/22/20 10:12 Dose: 150 mg Documented by: Cholecalciferol (Cholecalciferol 1,000 Unit Tab) 1,000 unit PO DAILY [facility] Last Admin: 08/22/20 10:12 Dose: 1,000 unit Documented by: Dexamethasone (Dexamethasone 2 Mg Tab) 6 mg PO DAILY [facility] Last Admin: 08/22/20 10:12 Dose: 6 mg Documented by: Enoxaparin Sodium (Enoxaparin 40 Mg/0.4 Ml Syringe) 40 mg SQ DAILY [facility] Last Admin: 08/22/20 10:11 Dose: 40 mg Documented by: Famotidine (Famotidine 20 Mg Tab) 20 mg PO BID [facility] Last Admin: 08/22/20 20:36 Dose: 20 mg Documented by: Gabapentin (Gabapentin 300 Mg Cap) 300 mg PO BID [facility] Last Admin: 08/22/20 20:36 Dose: 300 mg Documented by: Ceftriaxone Sodium 2 gm/ (Sodium Chloride) 50 mls @ 100 mls/hr IVPB Q24HR [facility] Last Admin: 08/22/20 10:11 Dose: 100 mls/hr Documented by: Remdesivir 100 mg/ Sodium (Chloride) 250 mls @ 250 mls/hr IVPB DAILY@1200 [facility] Stop: 08/26/20 12:59 Sodium Chloride (Saline 0.9%) 1,000 mls @ 50 mls/hr IV .Q20H [facility] Last Admin: 08/22/20 20:37 Dose: 50 mls/hr Documented by: Ibuprofen (Ibuprofen 400 Mg Tab) 400 mg PO Q6HR PRN PRN Reason: Mild Pain or Fever > 100.5 Last Admin: 08/22/20 05:57 Dose: 400 mg Documented by: Levothyroxine Sodium (Levothyroxine 100 Mcg Tab) 100 mcg PO DAILY@0630 [facility] Last Admin: 08/22/20 05:55 Dose: 100 mcg Documented by: Naloxone HCl (Naloxone 0.4 Mg/Ml 1 Ml Vial) 0.2 mg IV Q2M PRN PRN Reason: Opioid Reversal Ondansetron HCl (Ondansetron 4 Mg/2 Ml Vial) 4 mg IVP Q8HR PRN PRN Reason: Nausea And Vomiting Zinc Sulfate (Zinc Sulfate 220 Mg Cap) 220 mg PO DAILY [facility] Last Admin: 08/22/20 10:12 Dose: 220 mg Documented by: Physical examination: VITAL SIGNS: 98.1, 67, 20, 171/78, 90% on 15 L GENERAL: Sitting up, more short of breath. PSYCH: [Alert and oriented x3; mood and affect anxious]l. NEUROLOGICAL: Cranial nerves grossly intact. Moving all 4 limbs Rest of the exam as per nursing, pulmonary INVESTIGATIONS, reviewed in the clinical context: August 21: D-dimer 0.53 CRP 6.7 pro-calcitonin 0.02 White count 12.6 hemoglobin 15.1 and platelets 472 increased neutrophils d-dimer 0.38 potassium 4.6 bun 20 creatinine 0.50 CRP 63 Coronavirus PCF-detected EKG tracing personally reviewed by me-no sinus rhythm Chest x-ray film personally reviewed by me-bilateral scattered infiltrates Assessment: -Bilateral COVID 19 pneumonia - slow to respond -Possible gram-negative pneumonia, patient has beige sputum and left shift on CBC-on ceftriaxone -Acute hypoxic respiratory failure from pneumonia-slow to respond on 15 L nasal cannula -Hypothyroid -Morbid obesity BMI 41.6 Plan: Continue IV Solu-Medrol. Ceftriaxone, , High flow oxygen 15 L, Subcu Lovenox. Remdesivir was added. Also convalescent plasma was ordered by Dr. White.
[2020-08-23] MEDS: IBUPROFEN 400 MG TAB PO PRN ×3 (03:42→20:59)
[2020-08-23] MEDS: ACETAMINOPHEN TAB 325 MG TAB PO PRN ×2 (05:11→17:58)
[2020-08-23] MEDS: LEVOTHYROXINE 100 MCG TAB PO SCH (05:11)
[2020-08-23] MEDS: ENOXAPARIN 40 MG/0.4 ML SYRINGE SQ SCH (07:52)
[2020-08-23] MEDS: ASCORBIC ACID 500 MG TAB PO SCH (07:53)
[2020-08-23] MEDS: dexAMETHasone 2 MG TAB PO SCH (07:53)
[2020-08-23] MEDS: GABAPENTIN 300 MG CAP PO SCH ×2 (07:53→21:01)
[2020-08-23] MEDS: CHOLECALCIFEROL 1,000 UNIT TAB PO SCH (07:53)
[2020-08-23] MEDS: FAMOTIDINE 20 MG TAB PO SCH ×2 (07:53→21:00)
[2020-08-23] MEDS: ZINC SULFATE 220 MG CAP PO SCH (07:53)
[2020-08-23] MEDS: buPROPion XL 150 MG TAB.ER.24H PO SCH (07:53)
[2020-08-23] MEDS: SODIUM CHLORIDE 0.9% 1,000 ML IV SCH (07:58)
--- NOTE | 2020-08-23 08:05 | XR ---
EXAMINATION TYPE: XR chest 1V portable DATE OF EXAM: 08/23/2020 COMPARISON: Prior chest x-ray 08/19/2020 HISTORY: Pneumonia TECHNIQUE: Single frontal view of the chest is obtained. FINDINGS: Bilateral airspace disease is again noted. There may be some more confluent density in the upper lobes. Heart is stable. No pneumothorax or pleural effusion. IMPRESSION: Correlate for pneumonia, edema, follow-up recommended.
[2020-08-23 11:33] LABS: C Reactive Protein 25.3 mg/dL (0.0-0.8)
--- NOTE | 2020-08-23 12:01 | P.PN ---
Subjective Progress Note Date: 08/23/20 65-year-old male patient and the patient came into the emergency department yesterday because of generalized weakness shortness of breath. The patient had a pulse ox of 70%. The patient is a nonsmoker. Apparently symptoms of been progressively getting worse over the past 10 days. she originally got sick around and her symptoms were waxing and waning and progressively she got worse and she ultimately had come to the hospital because of worsening shortness of breath. He had some fever and chills. He had diminished appetite. He had decreased taste and smell. The patient tested positive for COVID 19 by PCR and the patient is currently being treated for this pneumonia. The patient was admitted because of 12.6. The patient has a platelet count of 472. Preservation. Positive normal. D-dimer is not elevated at 0.53. The ferritin level is at 360, the patient has a mild transaminitis with an AST of 76, ALP of 65 with an LDH of 1038. CRP is at 63 and appropriate LEVEL IS AT 0.04. REST X- RAY SHOWING NEW BILATERAL INTERSTITIAL INFILTRATION PERIHILAR. THE PATIENT IS CURRENTLY ON OXYGEN AND THE PATIENT IS CURRENTLY ON 15 L TO MAINTAIN A SATURATION ABOVE 90%. She is afebrile. on today's evaluation of 08/22/2020, the patient is a bit struggling with her breathing. She was able to sit up on a chair or morning. Noted the patient was started on a combination of oxygen delivery systems including high flow oxygen at 15 L nasal cannula and 100% nonrebreather facemask to maintain a saturation between 88-92%. She has some limited cough. No significant sputum production. She is laying comfortably in bed. she is having some mild degree of shortness of breath even at rest. She is not using her muscles of breathing. Note that the patient was started on a combination of Decadron and Remdesivir I'm also inclining giving her a unit of convalescence as her condition. no nausea. No vomiting. No diarrhea. No abdominal pain. No altered mentation. on 08/23/2020 16 the patient for a follow-up. The patient is currently on a 15 L high flow oxygen. On and off she is also using the 100% nonrebreather facemask. She is doing well. No specific complaints. She is getting less short of breath. Her lungs are less achy on today's evaluation. No nausea. No vomiting. She is on day 2 of Remdesivir she is also on Decadron. She receives convalescent plasma. No nausea. No vomiting. No diarrhea. Objective - Vital Signs Vital signs: Vital Signs Temp 97.6 F 08/23/20 10:35 Pulse 74 08/23/20 10:35 Resp 19 08/23/20 10:35 BP 112/74 08/23/20 10:35 Pulse Ox 91 L 08/23/20 10:35 Intake & Output 08/22/20 08/23/20 08/23/20 18:59 06:59 18:59 Intake Total 0 1210 Balance 0 1210 Intake: Intake, IV Titration 600 Amount Sodium Chloride 0.9% 1, 600 000 ml @ 50 mls/hr IV . Q20H [facility] Rx#:[id number] Oral 610 Blood Product 0 Ffp Pher Conval Covid19 0 Acda 3 Unit [id number] Other: Voiding Method Bedside Commode Bedside Commode # Voids 2 2 # Bowel Movements 1 - Exam Gen. appearance she is calm comfortable mild degree of respiratory distress currently on 15 L of oxygen by nasal cannula in addition to 100% nonrebreather facemask. Head exam was generally normal. There was no scleral icterus or corneal arcus. Mucous membranes were moist. Neck was supple and without jugular venous distension, thyromegaly, or carotid bruits. Carotids were easily palpable bilaterally. There was no adenopathy. Lungs sounds are diminished and the patient is contacted the lung bases. Cardiac exam revealed the PMI to be normally situated and sized. The rhythm was regular and no extrasystoles were noted during several minutes of auscultation. The first and second heart sounds were normal and physiologic splitting of the second heart sound was noted. There were no murmurs, rubs, clicks, or gallops. Abdomen abdomen Abdominal exam revealed normal bowel sounds. The abdomen was soft, non-tender, and without masses, organomegaly, or appreciable enlargement of the abdominal aorta. Examination of the extremities revealed easily palpable radial, femoral and pedal pulses. There was no cyanosis, clubbing or edema. Examination of the skin revealed no evidence of significant rashes, suspicious appearing nevi or other concerning lesions. - Labs CBC & Chem 7: 08/19/20 18:30 08/19/20 18:30 Labs: Abnormal Lab Results - Last 24 Hours (Table) 08/23/20 08/23/20 Range/Units 05:56 05:59 D-Dimer 1.67 H (<0.60) mg/L FEU Lactate Dehydrogenase 656 H (120-246) U/L C-Reactive Protein 25.3 H (0.0-0.8) mg/dL Microbiology - Last 24 Hours (Table) 08/19/20 18:30 Blood Culture - Preliminary Blood No Growth after 72 hours Assessment and Plan Plan: 1 acute bilateral pneumonia secondary to Covid 19 infection and the patient was probably diagnosed and became symptomatic less than 10 days ago and the patient will be an adequate candidate for steroids and Remdesivir #2,clinically improved and the patient also received a dose of convalescent plasma. 2 acute hypoxic respiratory failure currently on 15 L of oxygen by nasal cannula, in addition to 100% nonrebreather facemask. 3 elevated inflammatory markers, mild 4 obesity 5 chronic back pain Plan Utilizing a combination of Decadron 6 mg by mouth daily, Remdesivir , vitamin C, vitamin D, zinc, melatonin, and the patient will be gradually wean off FiO2 as tolerated to maintain saturation above 90%. Provide an incentive spirometer. Monitor inflammatory markers and order them for tomorrow. Attempt to titrate FiO2 as tolerated.. there has been some progression in her condition with worsening in the oxygenation compared to yesterday. She is currently stable. Monitor the pulse ox. Repeat chest x-ray in the morning. Repeat all of the inflammatory markers in the morning.
[2020-08-23] MEDS: REMDESIVIR 100 MG in SODIUM CHLORIDE 0.9% 250 ML IVPB SCH (12:58)
[2020-08-23] MEDS: methylPREDNISolone SOD SUCCI 40 MG/ML 1 ML VIAL IV SCH (14:41)
[2020-08-23] MEDS: ENOXAPARIN 100 MG/ML SYRINGE SQ SCH (21:00)
[2020-08-24] MEDS: methylPREDNISolone SOD SUCCI 40 MG/ML 1 ML VIAL IV SCH ×4 (00:13→23:45)
[2020-08-24] MEDS: ACETAMINOPHEN TAB 325 MG TAB PO PRN ×2 (00:18→13:50)
--- NOTE | 2020-08-24 00:19 | PN ---
PROGRESS NOTE DATE OF SERVICE: 08/23/2020 REASON FOR FOLLOWUP: COVID-19 pneumonia. INTERVAL HISTORY: The patient is currently afebrile. The patient is feeling slightly better today. Still requiring high-flow nasal cannula oxygen. Denies any chest pain. Minimal cough. No abdominal pain. No diarrhea. PHYSICAL EXAMINATION: Blood pressure 150/81 with a pulse of 75, temperature 98.2. She is 91% on 15 L high- flow oxygen. General description is a middle-aged female lying in bed in no distress. Respiratory system: Unlabored breathing with decreased intensity of the breath sounds. No wheeze. Heart S1, S2. Regular rate and rhythm. ABDOMEN: Soft, no tenderness. LABS: D-dimer 1.67. LDH 656. CRP 25.3. Procalcitonin normal. DIAGNOSTIC IMPRESSION AND PLAN: Patient with acute COVID-19 pneumonia in this patient is currently being treated with Solu-Medrol, Remdesivir and zinc, Lovenox to continue with Procalcitonin normal and no clinical suspicions for bacterial pneumonia. Rocephin discontinued. MMODL / IJN: [id number] /
[2020-08-24] MEDS: IBUPROFEN 400 MG TAB PO PRN ×2 (05:08→20:21)
[2020-08-24] MEDS: LEVOTHYROXINE 100 MCG TAB PO SCH (05:08)
[2020-08-24] MEDS: ASCORBIC ACID 500 MG TAB PO SCH (09:07)
[2020-08-24] MEDS: CHOLECALCIFEROL 1,000 UNIT TAB PO SCH (09:07)
[2020-08-24] MEDS: ZINC SULFATE 220 MG CAP PO SCH (09:07)
[2020-08-24] MEDS: ENOXAPARIN 100 MG/ML SYRINGE SQ SCH ×2 (09:07→20:24)
[2020-08-24] MEDS: buPROPion XL 150 MG TAB.ER.24H PO SCH (09:07)
[2020-08-24] MEDS: FAMOTIDINE 20 MG TAB PO SCH ×2 (09:07→20:22)
[2020-08-24] MEDS: GABAPENTIN 300 MG CAP PO SCH ×2 (09:07→20:22)
[2020-08-24 10:21] LABS: C Reactive Protein 22.6 mg/dL (0.0-0.8)
[2020-08-24 10:37] LABS: Ferritin 1059.4 ng/mL (10.0-291.0)
--- NOTE | 2020-08-24 11:04 | P.PN ---
Progress Note - Text Progress Note Date: 08/23/20 Chief Complaint: Cough History of presenting complaint: This is a 65-year-old patient of Dr. carvalho. Chronic stable medical conditions include hypothyroid, herniated disc. She presented to the ER with complaints of weakness and shortness of breath. Her entire family has the cold and a COVID test was negative. Her pulse ox at home and was 78%. And in the ER it was 85%. She is a nonsmoker. Her primary housekeeper child care azithromycin, Hydrochlroquin and steroids. She took these but the symptoms are not getting any better. Symptoms have been going on for about 10 days. She is also had some fever and chills. Decreased appetite. Decrease in taste and smell. Had some headaches. Has some diarrhea. Also notices beige sputum. Feels a chest tightness for deep breath. Admitted with bilateral COVID pneumonia, possible gram-negative pneumonia, acute hypoxic respiratory failure. Started on IV Solu-Medrol Lovenox IV ceftriaxone. Remdesivir-added. Patient received a dose of convalescent plasma. Today-remains short of breath. On 15 L of nasal cannula. A bit tired. Oral intake fair Review of systems: Was done for constitutional, cardiovascular, GI, pulmonary. relevant finding as above Current medications reviewed in today's electronic records: Physical examination: VITAL SIGNS: He 7.6, 74, 19, 112/74, 91% on 15 L GENERAL: Reclining in bed, short of breath. PSYCH: [Alert and oriented x3; mood and affect anxious]l. NEUROLOGICAL: Cranial nerves grossly intact. Moving all 4 limbs Rest of the exam as per nursing, pulmonary INVESTIGATIONS, reviewed in the clinical context: August 23: D-dimer 1.67 CRP 25.3 August 21: D-dimer 0.53 CRP 6.7 pro-calcitonin 0.02 White count 12.6 hemoglobin 15.1 and platelets 472 increased neutrophils d-dimer 0.38 potassium 4.6 bun 20 creatinine 0.50 CRP 63 Coronavirus PCF-detected EKG tracing personally reviewed by me-no sinus rhythm Chest x-ray film personally reviewed by me-bilateral scattered infiltrates Assessment: -Bilateral COVID 19 pneumonia - slow to respond -Possible gram-negative pneumonia, patient has beige sputum and left shift on CBC-on ceftriaxone -Acute hypoxic respiratory failure from pneumonia-slow to respond on 15 L nasal cannula -Hypothyroid -Morbid obesity BMI 41.6 Plan: Continue IV Solu-Medrol. Ceftriaxone, , High flow oxygen 15 L, given increase in d-dimer. Will change to therapeutic dose of Lovenox. Follow with pulmonary and ID.
[2020-08-24 13:33] VITALS: BMI 41.5
--- NOTE | 2020-08-24 14:20 | P.PN ---
Subjective Progress Note Date: 08/24/20 HISTORY OF PRESENT ILLNESS This is a 65-year-old female had onset of symptoms 10 days ago with fever, cough, shortness of breath. She states for the first 6 or 7 day she was feeling okay but by day #8 she started feeling terrible. She bought pulse ox reader and initially she was running 90% but then dropped down to 78%. She was doing virtual visits with her physician's office and was put on dexamethasone, is azithromycin and completed course. On recheck, patient was placed on hydroxychloroquine. She denies having any abdominal pain. No diarrhea. She complains of a cough with chest pain with coughing, dark beige sputum production. She complains of chest pain with deep inspiration. She is feeling improvement since admission but continues to have cough and shortness of breath. Pulse ox is 90% on 15 L nasal cannula, heart rate 69, blood pressure 140/81. She has been afebrile. W BC 12.6. Lymphocytes normal. Initial d-dimer 0.38 and repeat 0.53. Creatinine 0.5. Ferritin level CCCLX.3. AST 76, ALT 65, alkaline phosphatase 83. LDH 1038. C-reactive protein 63 with repeat of 6.7. COVID-19 positive. Pro-calcitonin was 0.04 and repeat 0.02. Chest x-ray reveals new bilateral interstitial pneumonia. Patient has been started on ceftriaxone, dexamethasone 6 mg oral daily, Lovenox 40 mg subcu daily, supplements. 08/24: Patient is on day #3/5 of Remdesivir and status post convalescent plasma. Patient takes that she is feeling better. She denies any chest pain but she does have pain with deep breathing. She complains of a beige and brown sputum production. She denies having any abdominal symptoms including abdominal pain, nausea vomiting or diarrhea. She continues to have a little wheeze. Repeat chest x-ray ordered for the morning. Patient is currently pulse ox 94% on 15 L nonrebreather. Afebrile, heart rate 74, blood pressure 154/75. Blood culture shows no growth at 96 hours. PHYSICAL EXAMINATION Gen: This is a morbidly obese 65-year-old female. HEENT: Head is atraumatic, normocephalic. Pupils equal, round. Sclerae is anicteric. NECK: Supple. No JVD. LUNGS: Diminished in the bilateral bases. Mild expiratory wheeze. No interco stal retractions. HEART: Regular rate and rhythm. No murmur. ABDOMEN: Soft. Bowel sounds are present. No masses. No tenderness. EXTREMITIES: No pedal edema. No calf tenderness. NEUROLOGICAL: Patient is awake, alert and oriented x3. ASSESSMENT Covid 19 pneumonia Acute hypoxic respiratory failure Elevated inflammatory markers PLAN Continue Remdesivir day #3/5 Status post convalescent plasma Continue Solu-Medrol 40 mg IV every 8 hours, Lovenox, supplements Continue oxygen supplementation Blood culture in progress The above dictated assessment and findings were discussed with Dr. Zazueta. The impression and plan of care have been directed as dictated. Alexandra Garcia nurse practitioner acting as scribe for Dr. Zazueta. Objective - Vital Signs Vital signs: Vital Signs Temp 98.2 F 08/24/20 11:00 Pulse 74 08/24/20 11:00 Resp 18 08/24/20 11:00 BP 154/75 08/24/20 11:00 Pulse Ox 94 L 08/24/20 11:00 Intake & Output 08/23/20 08/24/20 08/24/20 18:59 06:59 18:59 Weight 113.398 kg Other: Voiding Method Bedside Commode Bedside Commode # Voids 2 4 # Bowel Movements 1 1 - Labs CBC & Chem 7: 08/19/20 18:30 08/19/20 18:30 Labs: Abnormal Lab Results - Last 24 Hours (Table) 08/24/20 08/24/20 Range/Units 06:21 06:21 D-Dimer 1.47 H (<0.60) mg/L FEU Ferritin 1059.4 H (10.0-291.0) ng/mL Lactate Dehydrogenase 506 H (120-246) U/L C-Reactive Protein 22.6 H (0.0-0.8) mg/dL Microbiology - Last 24 Hours (Table) 08/19/20 18:30 Blood Culture - Preliminary Blood No Growth after 96 hours
[2020-08-24] MEDS: REMDESIVIR 100 MG in SODIUM CHLORIDE 0.9% 250 ML IVPB SCH (14:48)
--- NOTE | 2020-08-24 14:58 | P.PN ---
Subjective Progress Note Date: 08/24/20 65-year-old male patient and the patient came into the emergency department yesterday because of generalized weakness shortness of breath. The patient had a pulse ox of 70%. The patient is a nonsmoker. Apparently symptoms of been progressively getting worse over the past 10 days. she originally got sick around and her symptoms were waxing and waning and progressively she got worse and she ultimately had come to the hospital because of worsening shortness of breath. He had some fever and chills. He had diminished appetite. He had decreased taste and smell. The patient tested positive for COVID 19 by PCR and the patient is currently being treated for this pneumonia. The patient was admitted because of 12.6. The patient has a platelet count of 472. Preservation. Positive normal. D-dimer is not elevated at 0.53. The ferritin level is at 360, the patient has a mild transaminitis with an AST of 76, ALP of 65 with an LDH of 1038. CRP is at 63 and appropriate LEVEL IS AT 0.04. REST X- RAY SHOWING NEW BILATERAL INTERSTITIAL INFILTRATION PERIHILAR. THE PATIENT IS CURRENTLY ON OXYGEN AND THE PATIENT IS CURRENTLY ON 15 L TO MAINTAIN A SATURATION ABOVE 90%. She is afebrile. on today's evaluation of 08/22/2020, the patient is a bit struggling with her breathing. She was able to sit up on a chair or morning. Noted the patient was started on a combination of oxygen delivery systems including high flow oxygen at 15 L nasal cannula and 100% nonrebreather facemask to maintain a saturation between 88-92%. She has some limited cough. No significant sputum production. She is laying comfortably in bed. she is having some mild degree of shortness of breath even at rest. She is not using her muscles of breathing. Note that the patient was started on a combination of Decadron and Remdesivir I'm also inclining giving her a unit of convalescence as her condition. no nausea. No vomiting. No diarrhea. No abdominal pain. No altered mentation. on 08/23/2020 16 the patient for a follow-up. The patient is currently on a 15 L high flow oxygen. On and off she is also using the 100% nonrebreather facemask. She is doing well. No specific complaints. She is getting less short of breath. Her lungs are less achy on today's evaluation. No nausea. No vomiting. She is on day 2 of Remdesivir she is also on Decadron. She receives convalescent plasma. No nausea. No vomiting. No diarrhea. On today's evaluation of 08/24/2020, the patient feels that she is doing slightly better. She still on 100% nonrebreather facemask and 15 L of oxygen by nasal cannula. She is afebrile. She is taken Remdesivir day #3 and Decadron. Her inflammatory markers show a d-dimer of 1.47, ferritin level is up to 1059, her LDH level is down to 509 and her CRP level is down to 22.6. No nausea. No vomiting. No diarrhea. She was able to sit up on a recliner all day. Currently she is back in bed. No other new complaints otherwise for now. No improvement in her oxygenation. Her chest x-ray from yesterday showed bilateral airspace disease and some more confluent density in the upper lobes. Objective - Vital Signs Vital signs: Vital Signs Temp 98.2 F 08/24/20 11:00 Pulse 74 08/24/20 11:00 Resp 18 08/24/20 11:00 BP 154/75 08/24/20 11:00 Pulse Ox 94 L 08/24/20 11:00 Intake & Output 08/23/20 08/24/20 08/24/20 18:59 06:59 18:59 Weight 113.398 kg Other: Voiding Method Bedside Commode Bedside Commode # Voids 2 4 # Bowel Movements 1 1 - Exam Gen. appearance she is calm comfortable mild degree of respiratory distress currently on 15 L of oxygen by nasal cannula in addition to 100% nonrebreather facemask. Head exam was generally normal. There was no scleral icterus or corneal arcus. Mucous membranes were moist. Neck was supple and without jugular venous distension, thyromegaly, or carotid bruits. Carotids were easily palpable bilaterally. There was no adenopathy. Lungs sounds are diminished and the patient is contacted the lung bases. Cardiac exam revealed the PMI to be normally situated and sized. The rhythm was regular and no extrasystoles were noted during several minutes of auscultation. The first and second heart sounds were normal and physiologic splitting of the second heart sound was noted. There were no murmurs, rubs, clicks, or gallops. Abdomen abdomen Abdominal exam revealed normal bowel sounds. The abdomen was soft, non-tender, and without masses, organomegaly, or appreciable enlargement of the abdominal aorta. Examination of the extremities revealed easily palpable radial, femoral and pedal pulses. There was no cyanosis, clubbing or edema. Examination of the skin revealed no evidence of significant rashes, suspicious appearing nevi or other concerning lesions. - Labs CBC & Chem 7: 08/19/20 18:30 08/19/20 18:30 Labs: Abnormal Lab Results - Last 24 Hours (Table) 08/24/20 08/24/20 Range/Units 06:21 06:21 D-Dimer 1.47 H (<0.60) mg/L FEU Ferritin 1059.4 H (10.0-291.0) ng/mL Lactate Dehydrogenase 506 H (120-246) U/L C-Reactive Protein 22.6 H (0.0-0.8) mg/dL Microbiology - Last 24 Hours (Table) 08/19/20 18:30 Blood Culture - Preliminary Blood No Growth after 96 hours Assessment and Plan Plan: 1 acute bilateral pneumonia secondary to Covid 19 infection and the patient was probably diagnosed and became symptomatic less than 10 days ago and the patient will be an adequate candidate for steroids and Remdesivir #3,clinically improved and the patient also received a dose of convalescent plasma. Despite her clinical improvement, the patient's oxygenation is unchanged the patient continues to be on same amount of oxygen which is 100% nonrebreather with 15 L nasal cannula. 2 acute hypoxic respiratory failure currently on 15 L of oxygen by nasal cannula, in addition to 100% nonrebreather facemask. 3 elevated inflammatory markers, mild 4 obesity 5 chronic back pain Plan Utilizing a combination of Decadron 6 mg by mouth daily, Remdesivir day #3 , vitamin C, vitamin D, zinc, melatonin, and the patient will be gradually wean off FiO2 as tolerated to maintain saturation above 90%. Provide an incentive spirometer. Monitor inflammatory markers from today shows improvement in the LDH and the CRP. Ferritin is on the rise. D-dimer slightly elevated.. Attempt to titrate FiO2 as tolerated.. She is currently stable. Monitor the pulse ox.
--- NOTE | 2020-08-24 23:17 | P.PN ---
Progress Note - Text Progress Note Date: 08/24/20 Chief Complaint: Cough History of presenting complaint: This is a 65-year-old patient of Dr. carvalho. Chronic stable medical conditions include hypothyroid, herniated disc. She presented to the ER with complaints of weakness and shortness of breath. Her entire family has the cold and a COVID test was negative. Her pulse ox at home and was 78%. And in the ER it was 85%. She is a nonsmoker. Her primary hospice care consultant azithromycin, Hydrochlroquin and steroids. She took these but the symptoms are not getting any better. Symptoms have been going on for about 10 days. She is also had some fever and chills. Decreased appetite. Decrease in taste and smell. Had some headaches. Has some diarrhea. Also notices beige sputum. Feels a chest tightness for deep breath. Admitted with bilateral COVID pneumonia, possible gram-negative pneumonia, acute hypoxic respiratory failure. Started on IV Solu-Medrol Lovenox IV ceftriaxone. Remdesivir-added. Patient received a dose of convalescent plasma. Today-remains short of breath. On 15 L of nasal cannula. tired. Able to eat. Sitting up in a chair Review of systems: Was done for constitutional, cardiovascular, GI, pulmonary. relevant finding as above Active Medications Acetaminophen (Acetaminophen Tab 325 Mg Tab) 650 mg PO Q6HR PRN PRN Reason: Mild Pain or Fever > 100.5 Last Admin: 08/24/20 13:50 Dose: 650 mg Documented by: Ascorbic Acid (Ascorbic Acid 500 Mg Tab) 500 mg PO DAILY [facility] Last Admin: 08/24/20 09:07 Dose: 500 mg Documented by: Bupropion HCl (Bupropion Xl 150 Mg Tab.Er.24h) 150 mg PO DAILY [facility] Last Admin: 08/24/20 09:07 Dose: 150 mg Documented by: Cholecalciferol (Cholecalciferol 1,000 Unit Tab) 1,000 unit PO DAILY [facility] Last Admin: 08/24/20 09:07 Dose: 1,000 unit Documented by: Enoxaparin Sodium (Enoxaparin 100 Mg/Ml Syringe) 100 mg SQ Q12HR [facility] Last Admin: 08/24/20 20:24 Dose: 100 mg Documented by: Famotidine (Famotidine 20 Mg Tab) 20 mg PO BID [facility] Last Admin: 08/24/20 20:22 Dose: 20 mg Documented by: Gabapentin (Gabapentin 300 Mg Cap) 300 mg PO BID [facility] Last Admin: 08/24/20 20:22 Dose: 300 mg Documented by: Remdesivir 100 mg/ Sodium (Chloride) 250 mls @ 250 mls/hr IVPB DAILY@1200 [facility] Stop: 08/26/20 12:59 Last Admin: 08/24/20 14:48 Dose: 250 mls/hr Documented by: Sodium Chloride (Saline 0.9%) 1,000 mls @ 50 mls/hr IV .Q20H [facility] Last Admin: 08/23/20 07:58 Dose: 50 mls/hr Documented by: Ibuprofen (Ibuprofen 400 Mg Tab) 400 mg PO Q6HR PRN PRN Reason: Mild Pain or Fever > 100.5 Last Admin: 08/24/20 20:21 Dose: 400 mg Documented by: Levothyroxine Sodium (Levothyroxine 100 Mcg Tab) 100 mcg PO DAILY@0630 [facility] Last Admin: 08/24/20 05:08 Dose: 100 mcg Documented by: Methylprednisolone Sodium Succinate (Methylprednisolone Sod Succi 40 Mg/Ml 1 Ml Vial) 40 mg IV Q8HR [facility] Last Admin: 08/24/20 17:46 Dose: 40 mg Documented by: Naloxone HCl (Naloxone 0.4 Mg/Ml 1 Ml Vial) 0.2 mg IV Q2M PRN PRN Reason: Opioid Reversal Ondansetron HCl (Ondansetron 4 Mg/2 Ml Vial) 4 mg IVP Q8HR PRN PRN Reason: Nausea And Vomiting Zinc Sulfate (Zinc Sulfate 220 Mg Cap) 220 mg PO DAILY [facility] Last Admin: 08/24/20 09:07 Dose: 220 mg Documented by: Physical examination: VITAL SIGNS: 98.2, 74, 18, 154/75, 94% on 15 L GENERAL: Sitting up in a chair, short of breath. PSYCH: Alert and oriented x3; mood and affect anxious. NEUROLOGICAL: Cranial nerves grossly intact. Moving limbs Rest of the exam as per nursing, pulmonary INVESTIGATIONS, reviewed in the clinical context: August 24: D-dimer 1.47 CRP 22.6 August 23: D-dimer 1.67 CRP 25.3 August 21: D-dimer 0.53 CRP 6.7 pro-calcitonin 0.02 White count 12.6 hemoglobin 15.1 and platelets 472 increased neutrophils d-dimer 0.38 potassium 4.6 bun 20 creatinine 0.50 CRP 63 Coronavirus PCF-detected EKG tracing personally reviewed by me-no sinus rhythm Chest x-ray film personally reviewed by me-bilateral scattered infiltrates Assessment: -Bilateral COVID 19 pneumonia - slow to respond -Possible gram-negative pneumonia, patient has beige sputum and left shift on CBC-on ceftriaxone -Acute hypoxic respiratory failure from pneumonia-slow to respond , remains on 15 L nasal cannula -Hypothyroid -Morbid obesity BMI 41.6 Plan: Continue IV Solu-Medrol. Ceftriaxone, , High flow oxygen 15 L,, Lovenox. Discussed with patient. Follow with pulmonary and ID
[2020-08-25] MEDS: SODIUM CHLORIDE 0.9% 1,000 ML IV SCH (04:50)
[2020-08-25] MEDS: IBUPROFEN 400 MG TAB PO PRN ×2 (04:50→17:11)
[2020-08-25] MEDS: LEVOTHYROXINE 100 MCG TAB PO SCH (04:50)
--- NOTE | 2020-08-25 07:05 | XR ---
EXAMINATION TYPE: XR chest 1V portable DATE OF EXAM: 08/25/2020 COMPARISON: 08/23/2020 INDICATION: Follow up Covid TECHNIQUE: Single frontal view of the chest is obtained. FINDINGS: The heart size is normal. The pulmonary vasculature is prominent. Diffuse increased lung markings are present bilaterally. Findings are stable IMPRESSION: 1. Stable diffuse increased lung markings bilaterally compatible with atypical pneumonia
[2020-08-25] MEDS: methylPREDNISolone SOD SUCCI 40 MG/ML 1 ML VIAL IV SCH ×3 (09:36→23:24)
[2020-08-25] MEDS: GABAPENTIN 300 MG CAP PO SCH ×2 (09:37→20:42)
[2020-08-25] MEDS: CHOLECALCIFEROL 1,000 UNIT TAB PO SCH (09:37)
[2020-08-25] MEDS: ASCORBIC ACID 500 MG TAB PO SCH (09:37)
[2020-08-25] MEDS: FAMOTIDINE 20 MG TAB PO SCH ×2 (09:37→20:42)
[2020-08-25] MEDS: ZINC SULFATE 220 MG CAP PO SCH (09:37)
[2020-08-25] MEDS: ENOXAPARIN 100 MG/ML SYRINGE SQ SCH ×2 (09:37→20:42)
[2020-08-25] MEDS: buPROPion XL 150 MG TAB.ER.24H PO SCH (09:38)
[2020-08-25] MEDS: REMDESIVIR 100 MG in SODIUM CHLORIDE 0.9% 250 ML IVPB SCH (13:50)
--- NOTE | 2020-08-25 14:51 | P.PN ---
Subjective Progress Note Date: 08/25/20 HISTORY OF PRESENT ILLNESS This is a 65-year-old female had onset of symptoms 10 days ago with fever, cough, shortness of breath. She states for the first 6 or 7 day she was feeling okay but by day #8 she started feeling terrible. She bought pulse ox reader and initially she was running 90% but then dropped down to 78%. She was doing virtual visits with her physician's office and was put on dexamethasone, is azithromycin and completed course. On recheck, patient was placed on hydroxychloroquine. She denies having any abdominal pain. No diarrhea. She complains of a cough with chest pain with coughing, dark beige sputum production. She complains of chest pain with deep inspiration. She is feeling improvement since admission but continues to have cough and shortness of breath. Pulse ox is 90% on 15 L nasal cannula, heart rate 69, blood pressure 140/81. She has been afebrile. W BC 12.6. Lymphocytes normal. Initial d-dimer 0.38 and repeat 0.53. Creatinine 0.5. Ferritin level CCCLX.3. AST 76, ALT 65, alkaline phosphatase 83. LDH 1038. C-reactive protein 63 with repeat of 6.7. COVID-19 positive. Pro-calcitonin was 0.04 and repeat 0.02. Chest x-ray reveals new bilateral interstitial pneumonia. Patient has been started on ceftriaxone, dexamethasone 6 mg oral daily, Lovenox 40 mg subcu daily, supplements. 08/24: Patient is on day #3/5 of Remdesivir and status post convalescent plasma. Patient takes that she is feeling better. She denies any chest pain but she does have pain with deep breathing. She complains of a beige and brown sputum production. She denies having any abdominal symptoms including abdominal pain, nausea vomiting or diarrhea. She continues to have a little wheeze. Repeat chest x-ray ordered for the morning. Patient is currently pulse ox 94% on 15 L nonrebreather. Afebrile, heart rate 74, blood pressure 154/75. Blood culture shows no growth at 96 hours. 08/25: Patient states that she is feeling better. She continues to have a cough that seems to be deeper along with sputum production. Sputum is brown and beige in color. She denies having any nausea, vomiting or diarrhea. She states her breathing was kind of breath this morning but improved by this afternoon. Patient has been afebrile. Pulse ox is running 89 and 90% on 15 L high flow nasal cannula. Patient is day 4 of Remdesivir. PHYSICAL EXAMINATION Gen: This is a morbidly obese 65-year-old female. HEENT: Head is atraumatic, normocephalic. Pupils equal, round. Sclerae is anicteric. NECK: Supple. No JVD. LUNGS: Diminished in the bilateral bases. Mild expiratory wheeze more so on the right side. No intercostal retractions. HEART: Regular rate and rhythm. No murmur. ABDOMEN: Soft. Bowel sounds are present. No masses. No tenderness. EXTREMITIES: No pedal edema. No calf tenderness. NEUROLOGICAL: Patient is awake, alert and oriented x3. ASSESSMENT Covid 19 pneumonia Acute hypoxic respiratory failure Elevated inflammatory markers PLAN Continue Remdesivir day #4/5 Status post convalescent plasma Continue Solu-Medrol 40 mg IV every 8 hours, Lovenox, supplements Continue oxygen supplementation and wean as appropriate Blood culture in progress The above dictated assessment and findings were discussed with Dr. Zazueta. The impression and plan of care have been directed as dictated. Alexandra Garcia nurse practitioner acting as scribe for Dr. Zazueta. Objective - Vital Signs Vital signs: Vital Signs Temp 98.2 F 08/25/20 11:00 Pulse 61 08/25/20 11:00 Resp 20 08/25/20 11:00 BP 143/87 08/25/20 11:00 Pulse Ox 90 L 08/25/20 11:00 Intake & Output 08/24/20 08/25/20 08/25/20 18:59 06:59 18:59 Intake Total 400 1560 Balance 400 1560 Weight 113.398 kg Intake: Intake, IV Titration 400 600 Amount Sodium Chloride 0.9% 1, 400 600 000 ml @ 50 mls/hr IV . Q20H [facility] Rx#:[id number] Oral 960 Other: Voiding Method Bedside Commode Bedside Commode # Voids 1 - Labs CBC & Chem 7: 08/19/20 18:30 08/19/20 18:30 Labs: Abnormal Lab Results - Last 24 Hours (Table) 08/25/20 08/25/20 Range/Units 07:30 10:43 D-Dimer 1.16 H (<0.60) mg/L FEU C-Reactive Protein 11.7 H (0.0-0.8) mg/dL Microbiology - Last 24 Hours (Table) 08/19/20 18:30 Blood Culture - Preliminary Blood No Growth after 120 hours
--- NOTE | 2020-08-25 18:26 | P.PN ---
Subjective Progress Note Date: 08/25/20 Principal diagnosis: Acute bilateral pneumonia secondary to Covid 19 infection 65-year-old male patient and the patient came into the emergency department yesterday because of generalized weakness shortness of breath. The patient had a pulse ox of 70%. The patient is a nonsmoker. Apparently symptoms of been progressively getting worse over the past 10 days. she originally got sick around [facility] and her symptoms were waxing and waning and progressively she got worse and she ultimately had come to the hospital because of worsening shortness of breath. He had some fever and chills. He had diminished appetite. He had decreased taste and smell. The patient tested positive for COVID 19 by PCR and the patient is currently being treated for this pneumonia. The patient was admitted because of 12.6. The patient has a platelet count of 472. Preservation. Positive normal. D-dimer is not elevated at 0.53. The ferritin level is at 360, the patient has a mild transaminitis with an AST of 76, ALP of 65 with an LDH of 1038. CRP is at 63 and appropriate LEVEL IS AT 0.04. REST X- RAY SHOWING NEW BILATERAL INTERSTITIAL INFILTRATION PERIHILAR. THE PATIENT IS CURRENTLY ON OXYGEN AND THE PATIENT IS CURRENTLY ON 15 L TO MAINTAIN A SATURATION ABOVE 90%. She is afebrile. on today's evaluation of 08/22/2020, the patient is a bit struggling with her breathing. She was able to sit up on a chair or morning. Noted the patient was started on a combination of oxygen delivery systems including high flow oxygen at 15 L nasal cannula and 100% nonrebreather facemask to maintain a saturation between 88-92%. She has some limited cough. No significant sputum production. She is laying comfortably in bed. she is having some mild degree of shortness of breath even at rest. She is not using her muscles of breathing. Note that the patient was started on a combination of Decadron and Remdesivir I'm also inclining giving her a unit of convalescence as her condition. no nausea. No vomiting. No diarrhea. No abdominal pain. No altered mentation. on 08/23/2020 16 the patient for a follow-up. The patient is currently on a 15 L high flow oxygen. On and off she is also using the 100% nonrebreather facemask. She is doing well. No specific complaints. She is getting less short of breath. Her lungs are less achy on today's evaluation. No nausea. No vomiting. She is on day 2 of Remdesivir she is also on Decadron. She receives convalescent plasma. No nausea. No vomiting. No diarrhea. On today's evaluation of 08/24/2020, the patient feels that she is doing slightly better. She still on 100% nonrebreather facemask and 15 L of oxygen by nasal cannula. She is afebrile. She is taken Remdesivir day #3 and Decadron. Her inflammatory markers show a d-dimer of 1.47, ferritin level is up to 1059, her LDH level is down to 509 and her CRP level is down to 22.6. No nausea. No vomiting. No diarrhea. She was able to sit up on a recliner all day. Currently she is back in bed. No other new complaints otherwise for now. No improvement in her oxygenation. Her chest x-ray from yesterday showed bilateral airspace disease and some more confluent density in the upper lobes. The patient is seen today 08/25/2020 in follow-up on the regular medical floor. She is currently resting fairly comfortably in bed. She's been up in the chair most of the day. She is still requiring 15 L high flow nasal cannula along with a nonrebreather to maintain O2 saturations in the 90s. She's been afebrile. Hemodynamically stable. D-dimer 1.16. Reactive protein 11.7. She remains on Lovenox 100 mg subcu every 12 hours. Currently on IV Solu-Medrol. Receiving day #4 of Remdesivir. She was given convalescent plasma as well. Chest x-ray continues to reveal stable diffuse increased lung markings bilaterally compatible with atypical pneumonia. Objective - Vital Signs Vital signs: Vital Signs Temp 98.1 F 08/25/20 16:40 Pulse 68 08/25/20 16:40 Resp 19 08/25/20 16:40 BP 143/86 08/25/20 16:40 Pulse Ox 90 L 08/25/20 16:40 Intake & Output 08/24/20 08/25/20 08/25/20 18:59 06:59 18:59 Intake Total 400 1560 400 Balance 400 1560 400 Weight 113.398 kg Intake: Intake, IV Titration 400 600 400 Amount Sodium Chloride 0.9% 1, 400 600 400 000 ml @ 50 mls/hr IV . Q20H [facility] Rx#:[id number] Oral 960 Other: Voiding Method Bedside Commode Bedside Commode Bedside Commode # Voids 1 - Exam Gen. appearance. Pleasant 65-year-old female patient, is calm comfortable, mild degree of respiratory distress currently on 15 L of oxygen by nasal cannula in addition to 100% nonrebreather facemask. Head exam was generally normal. There was no scleral icterus or corneal arcus. Mucous membranes were moist. Neck was supple and without jugular venous distension, thyromegaly, or carotid bruits. Carotids were easily palpable bilaterally. There was no adenopathy. Lungs sounds are diminished with crackles in the bilateral lung bases and a few scattered rhonchi. Cardiac exam revealed the PMI to be normally situated and sized. The rhythm was regular and no extrasystoles were noted during several minutes of auscultation. The first and second heart sounds were normal and physiologic splitting of the second heart sound was noted. There were no murmurs, rubs, clicks, or gallops. Abdominal exam revealed normal bowel sounds. The abdomen was soft, non-tender, and without masses, organomegaly, or appreciable enlargement of the abdominal aorta. Examination of the extremities revealed easily palpable radial, femoral and pedal pulses. There was no cyanosis, clubbing or edema. Examination of the skin revealed no evidence of significant rashes, suspicious appearing nevi or other concerning lesions. - Labs CBC & Chem 7: 08/19/20 18:30 12 18:30 Labs: Abnormal Lab Results - Last 24 Hours (Table) 08/25/20 08/25/20 Range/Units 07:30 10:43 D-Dimer 1.16 H (<0.60) mg/L FEU C-Reactive Protein 11.7 H (0.0-0.8) mg/dL Microbiology - Last 24 Hours (Table) 08/19/20 18:30 Blood Culture - Preliminary Blood No Growth after 120 hours Assessment and Plan Assessment: 1 acute bilateral pneumonia secondary to Covid 19 infection and the patient was probably diagnosed and became symptomatic less than 10 days ago and the patient will be an adequate candidate for steroids and Remdesivir #3,clinically improved and the patient also received a dose of convalescent plasma. Despite her clinical improvement, the patient's oxygenation is unchanged the patient continues to be on same amount of oxygen which is 100% nonrebreather with 15 L nasal cannula. 2 acute hypoxic respiratory failure currently on 15 L of oxygen by nasal cannula, in addition to 100% nonrebreather facemask. 3 elevated inflammatory markers, mild 4 obesity 5 chronic back pain Plan The patient was seen and evaluated by Dr. White Chest x-ray and labs reviewed She received her fourth dose of Remdesivir Received convalescent plasma Remains on IV Solu-Medrol, Lovenox, vitamin supplements She is been slow to progress May require AirVo high flow oxygen if needed We will continue to follow and make further recommendations based on her clinical status I, the cosigning physician, performed a history & physical examination of the patient. Lungs sounds with by basilar crackles, scattered rhonchi. Maintaining good O2 saturations in the 90s on 15 L high flow nasal cannula with nonrebreather mask. I discussed the assessment and plan of care with my nurse practitioner, Lauren Florentino. I attest to the above note as dictated by her.
--- NOTE | 2020-08-25 23:24 | P.PN ---
Progress Note - Text Progress Note Date: 08/25/20 Chief Complaint: Cough History of presenting complaint: This is a 65-year-old patient of Dr. carvalho. Chronic stable medical conditions include hypothyroid, herniated disc. She presented to the ER with complaints of weakness and shortness of breath. Her entire family has the cold and a COVID test was negative. Her pulse ox at home and was 78%. And in the ER it was 85%. She is a nonsmoker. Her primary clinical care manager azithromycin, Hydrochlroquin and steroids. She took these but the symptoms are not getting any better. Symptoms have been going on for about 10 days. She is also had some fever and chills. Decreased appetite. Decrease in taste and smell. Had some headaches. Has some diarrhea. Also notices beige sputum. Feels a chest tightness for deep breath. Admitted with bilateral COVID pneumonia, possible gram-negative pneumonia, acute hypoxic respiratory failure. Started on IV Solu-Medrol Lovenox IV ceftriaxone. Remdesivir-added. Patient received a dose of convalescent plasma. Today-remains short of breath. On 15 L of nasal cannula. tired. Laying in bed. Eating about 50% Review of systems: Was done for constitutional, cardiovascular, GI, pulmonary. relevant finding as above Active Medications Acetaminophen (Acetaminophen Tab 325 Mg Tab) 650 mg PO Q6HR PRN PRN Reason: Mild Pain or Fever > 100.5 Last Admin: 08/24/20 13:50 Dose: 650 mg Documented by: Ascorbic Acid (Ascorbic Acid 500 Mg Tab) 500 mg PO DAILY [facility] Last Admin: 08/25/20 09:37 Dose: 500 mg Documented by: Bupropion HCl (Bupropion Xl 150 Mg Tab.Er.24h) 150 mg PO DAILY [facility] Last Admin: 08/25/20 09:38 Dose: 150 mg Documented by: Cholecalciferol (Cholecalciferol 1,000 Unit Tab) 1,000 unit PO DAILY [facility] Last Admin: 08/25/20 09:37 Dose: 1,000 unit Documented by: Enoxaparin Sodium (Enoxaparin 100 Mg/Ml Syringe) 100 mg SQ Q12HR [facility] Last Admin: 08/25/20 20:42 Dose: 100 mg Documented by: Famotidine (Famotidine 20 Mg Tab) 20 mg PO BID [facility] Last Admin: 08/25/20 20:42 Dose: 20 mg Documented by: Gabapentin (Gabapentin 300 Mg Cap) 300 mg PO BID [facility] Last Admin: 08/25/20 20:42 Dose: 300 mg Documented by: Remdesivir 100 mg/ Sodium (Chloride) 250 mls @ 250 mls/hr IVPB DAILY@1200 [facility] Stop: 08/26/20 12:59 Last Admin: 08/25/20 13:50 Dose: 250 mls/hr Documented by: Sodium Chloride (Saline 0.9%) 1,000 mls @ 50 mls/hr IV .Q20H [facility] Last Admin: 08/25/20 04:50 Dose: 50 mls/hr Documented by: Ibuprofen (Ibuprofen 400 Mg Tab) 400 mg PO Q6HR PRN PRN Reason: Mild Pain or Fever > 100.5 Last Admin: 08/25/20 17:11 Dose: 400 mg Documented by: Levothyroxine Sodium (Levothyroxine 100 Mcg Tab) 100 mcg PO DAILY@0630 [facility] Last Admin: 08/25/20 04:50 Dose: 100 mcg Documented by: Methylprednisolone Sodium Succinate (Methylprednisolone Sod Succi 40 Mg/Ml 1 Ml Vial) 40 mg IV Q8HR [facility] Last Admin: 08/25/20 17:11 Dose: 40 mg Documented by: Naloxone HCl (Naloxone 0.4 Mg/Ml 1 Ml Vial) 0.2 mg IV Q2M PRN PRN Reason: Opioid Reversal Ondansetron HCl (Ondansetron 4 Mg/2 Ml Vial) 4 mg IVP Q8HR PRN PRN Reason: Nausea And Vomiting Zinc Sulfate (Zinc Sulfate 220 Mg Cap) 220 mg PO DAILY [facility] Last Admin: 08/25/20 09:37 Dose: 220 mg Documented by: Physical examination: VITAL SIGNS: 98.2, 61, 20, 143.87, 90% on 15 L GENERAL: Laying prone in the bed, short of breath PSYCH: Alert and oriented x3; mood and affect anxious. NEUROLOGICAL: Cranial nerves grossly intact. Moving limbs Rest of the exam as per nursing, pulmonary INVESTIGATIONS, reviewed in the clinical context: August 25: D-dimer 1.16 CRP 11.7 August 10: D-dimer 1.47 CRP 22.6 August 23: D-dimer 1.67 CRP 25.3 August 21: D-dimer 0.53 CRP 6.7 pro-calcitonin 0.02 White count 12.6 hemoglobin 15.1 and platelets 472 increased neutrophils d-dimer 0.38 potassium 4.6 bun 20 creatinine 0.50 CRP 63 Coronavirus PCF-detected EKG tracing personally reviewed by me-no sinus rhythm Chest x-ray film personally reviewed by me-bilateral scattered infiltrates Assessment: -Bilateral COVID 19 pneumonia - slow to respond -Possible gram-negative pneumonia, patient has beige sputum and left shift on CBC-on ceftriaxone -Acute hypoxic respiratory failure from pneumonia-slow to respond , remains on 15 L nasal cannula -Hypothyroid -Morbid obesity BMI 41.6 Plan: Continue IV Solu-Medrol. Ceftriaxone, , High flow oxygen 15 L,, Lovenox. Discussed with patient. Encouraged activity as tolerated
[2020-08-26] MEDS: ACETAMINOPHEN TAB 325 MG TAB PO PRN ×2 (03:14→19:32)
[2020-08-26] MEDS: SODIUM CHLORIDE 0.9% 1,000 ML IV SCH ×2 (04:34→15:01)
[2020-08-26] MEDS: LEVOTHYROXINE 100 MCG TAB PO SCH (04:44)
[2020-08-26] MEDS: GABAPENTIN 300 MG CAP PO SCH ×2 (09:36→20:12)
[2020-08-26] MEDS: buPROPion XL 150 MG TAB.ER.24H PO SCH (09:36)
[2020-08-26] MEDS: CHOLECALCIFEROL 1,000 UNIT TAB PO SCH (09:36)
[2020-08-26] MEDS: methylPREDNISolone SOD SUCCI 40 MG/ML 1 ML VIAL IV SCH ×3 (09:36→23:27)
[2020-08-26] MEDS: FAMOTIDINE 20 MG TAB PO SCH ×2 (09:36→20:12)
[2020-08-26] MEDS: ENOXAPARIN 100 MG/ML SYRINGE SQ SCH ×2 (09:36→20:12)
[2020-08-26] MEDS: ZINC SULFATE 220 MG CAP PO SCH (09:36)
[2020-08-26] MEDS: ASCORBIC ACID 500 MG TAB PO SCH (09:36)
[2020-08-26] MEDS: IBUPROFEN 400 MG TAB PO PRN (09:53)
--- NOTE | 2020-08-26 13:28 | P.PN ---
Subjective Progress Note Date: 08/26/20 65-year-old male patient and the patient came into the emergency department yesterday because of generalized weakness shortness of breath. The patient had a pulse ox of 70%. The patient is a nonsmoker. Apparently symptoms of been progressively getting worse over the past 10 days. she originally got sick around and her symptoms were waxing and waning and progressively she got worse and she ultimately had come to the hospital because of worsening shortness of breath. He had some fever and chills. He had diminished appetite. He had decreased taste and smell. The patient tested positive for COVID 19 by PCR and the patient is currently being treated for this pneumonia. The patient was admitted because of 12.6. The patient has a platelet count of 472. Preservation. Positive normal. D-dimer is not elevated at 0.53. The ferritin level is at 360, the patient has a mild transaminitis with an AST of 76, ALP of 65 with an LDH of 1038. CRP is at 63 and appropriate LEVEL IS AT 0.04. REST X- RAY SHOWING NEW BILATERAL INTERSTITIAL INFILTRATION PERIHILAR. THE PATIENT IS CURRENTLY ON OXYGEN AND THE PATIENT IS CURRENTLY ON 15 L TO MAINTAIN A SATURATION ABOVE 90%. She is afebrile. on today's evaluation of 08/22/2020, the patient is a bit struggling with her breathing. She was able to sit up on a chair or morning. Noted the patient was started on a combination of oxygen delivery systems including high flow oxygen at 15 L nasal cannula and 100% nonrebreather facemask to maintain a saturation between 88-92%. She has some limited cough. No significant sputum production. She is laying comfortably in bed. she is having some mild degree of shortness of breath even at rest. She is not using her muscles of breathing. Note that the patient was started on a combination of Decadron and Remdesivir I'm also inclining giving her a unit of convalescence as her condition. no nausea. No vomiting. No diarrhea. No abdominal pain. No altered mentation. on 08/23/2020 16 the patient for a follow-up. The patient is currently on a 15 L high flow oxygen. On and off she is also using the 100% nonrebreather facemask. She is doing well. No specific complaints. She is getting less short of breath. Her lungs are less achy on today's evaluation. No nausea. No vomiting. She is on day 2 of Remdesivir she is also on Decadron. She receives convalescent plasma. No nausea. No vomiting. No diarrhea. On today's evaluation of 08/24/2020, the patient feels that she is doing slightly better. She still on 100% nonrebreather facemask and 15 L of oxygen by nasal cannula. She is afebrile. She is taken Remdesivir day #3 and Decadron. Her inflammatory markers show a d-dimer of 1.47, ferritin level is up to 1059, her LDH level is down to 509 and her CRP level is down to 22.6. No nausea. No vomiting. No diarrhea. She was able to sit up on a recliner all day. Currently she is back in bed. No other new complaints otherwise for now. No improvement in her oxygenation. Her chest x-ray from yesterday showed bilateral airspace disease and some more confluent density in the upper lobes. The patient is seen today 08/25/2020 in follow-up on the regular medical floor. She is currently resting fairly comfortably in bed. She's been up in the chair most of the day. She is still requiring 15 L high flow nasal cannula along with a nonrebreather to maintain O2 saturations in the 90s. She's been afebrile. Hemodynamically stable. D-dimer 1.16. Reactive protein 11.7. She remains on Lovenox 100 mg subcu every 12 hours. Currently on IV Solu-Medrol. Receiving day #4 of Remdesivir. She was given convalescent plasma as well. Chest x-ray continues to reveal stable diffuse increased lung markings bilaterally compatible with atypical pneumonia. On 08/26/2020, the patient is being seen in follow-up. She remains on high flow oxygen and she is at 60 L. She feels that she is doing better. She is on IV Solu-Medrol. She is on day 5 of Remdesivir she also receives convalescent plasma. She is afebrile. No new complaints for now. She is able to sit up on a recliner. She is upset and the patient is feeling slightly depressed. His heart is still surgery. He is having ongoing respiratory insufficiency and she is slow in recovery. She remains on high flow oxygen for now. Objective - Vital Signs Vital signs: Vital Signs Temp 98.2 F 08/26/20 10:20 Pulse 82 08/26/20 10:20 Resp 20 08/26/20 10:20 BP 125/82 08/26/20 10:20 Pulse Ox 84 L 08/26/20 10:20 Intake & Output 08/25/20 08/26/20 08/26/20 18:59 06:59 18:59 Intake Total 400 Balance 400 Intake: Intake, IV Titration 400 Amount Sodium Chloride 0.9% 1, 400 000 ml @ 50 mls/hr IV . Q20H [facility] Rx#:[id number] Other: Voiding Method Bedside Commode Bedside Commode # Voids 2 - Exam Gen. appearance she is calm comfortable mild degree of respiratory distress currently on high flow oxygen 60 L by nasal cannula in addition to 100% nonrebreather facemask. Head exam was generally normal. There was no scleral icterus or corneal arcus. Mucous membranes were moist. Neck was supple and without jugular venous distension, thyromegaly, or carotid bruits. Carotids were easily palpable bilaterally. There was no adenopathy. Lungs sounds are diminished and the patient is contacted the lung bases. Cardiac exam revealed the PMI to be normally situated and sized. The rhythm was regular and no extrasystoles were noted during several minutes of auscultation. The first and second heart sounds were normal and physiologic splitting of the second heart sound was noted. There were no murmurs, rubs, clicks, or gallops. Abdomen abdomen Abdominal exam revealed normal bowel sounds. The abdomen was soft, non-tender, and without masses, organomegaly, or appreciable enlargement of the abdominal aorta. Examination of the extremities revealed easily palpable radial, femoral and pedal pulses. There was no cyanosis, clubbing or edema. Examination of the skin revealed no evidence of significant rashes, suspicious a ppearing nevi or other concerning lesions. - Labs CBC & Chem 7: 08/19/20 18:30 08/19/20 18:30 Labs: Microbiology - Last 24 Hours (Table) 08/19/20 18:30 Blood Culture - Final Blood No Growth after 144 hours Assessment and Plan Plan: 1 acute bilateral pneumonia secondary to Covid 19 infection and the patient is receiving steroids and Remdesivir #5, and the patient is currently on high flow oxygen at 60 L of oxygen which is 100% nonrebreather with 15 L nasal cannula. 2 acute hypoxic respiratory failure currently on 60 L of oxygen by nasal cannula, in addition to 100% nonrebreather facemask. 3 elevated inflammatory markers, mild 4 obesity 5 chronic back pain Plan Utilizing a combination Solu-Medrol, Remdesivir day #5 , vitamin C, vitamin D, zinc, melatonin, and the patient will be gradually wean off FiO2 as tolerated to maintain saturation above 90%. Provide an incentive spirometer. Monitor inflammatory markers . Attempt to titrate FiO2 as tolerated.. She is currently stable. Monitor the pulse ox.
[2020-08-26] MEDS: REMDESIVIR 100 MG in SODIUM CHLORIDE 0.9% 250 ML IVPB SCH (13:43)
--- NOTE | 2020-08-26 20:33 | P.PN ---
Progress Note - Text Progress Note Date: 08/26/20 Chief Complaint: Short of breath History of presenting complaint: This is a 65-year-old patient of Dr. carvalho. Chronic stable medical conditions include hypothyroid, herniated disc. She presented to the ER with complaints of weakness and shortness of breath. Her entire family has the cold and a COVID test was negative. Her pulse ox at home and was 78%. And in the ER it was 85%. She is a nonsmoker. Her primary college and career counselor azithromycin, Hydrochlroquin and steroids. She took these but the symptoms are not getting any better. Symptoms have been going on for about 10 days. She is also had some fever and chills. Decreased appetite. Decrease in taste and smell. Had some headaches. Has some diarrhea. Also notices beige sputum. Feels a chest tightness for deep breath. Admitted with bilateral COVID pneumonia, possible gram-negative pneumonia, acute hypoxic respiratory failure. Started on IV Solu-Medrol Lovenox IV ceftriaxone. Remdesivir-added. Patient received a dose of convalescent plasma. Today-remains short of breath.-Laying in bed.. Tired. Oral intake fair. Review of systems: Was done for constitutional, cardiovascular, GI, pulmonary. relevant finding as above Active Medications Acetaminophen (Acetaminophen Tab 325 Mg Tab) 650 mg PO Q6HR PRN PRN Reason: Mild Pain or Fever > 100.5 Last Admin: 08/26/20 19:32 Dose: 650 mg Documented by: Ascorbic Acid (Ascorbic Acid 500 Mg Tab) 500 mg PO DAILY [facility] Last Admin: 08/26/20 09:36 Dose: 500 mg Documented by: Bupropion HCl (Bupropion Xl 150 Mg Tab.Er.24h) 150 mg PO DAILY [facility] Last Admin: 08/26/20 09:36 Dose: 150 mg Documented by: Cholecalciferol (Cholecalciferol 1,000 Unit Tab) 1,000 unit PO DAILY [facility] Last Admin: 08/26/20 09:36 Dose: 1,000 unit Documented by: Enoxaparin Sodium (Enoxaparin 100 Mg/Ml Syringe) 100 mg SQ Q12HR [facility] Last Admin: 08/26/20 20:12 Dose: 100 mg Documented by: Famotidine (Famotidine 20 Mg Tab) 20 mg PO BID [facility] Last Admin: 08/26/20 20:12 Dose: 20 mg Documented by: Gabapentin (Gabapentin 300 Mg Cap) 300 mg PO BID [facility] Last Admin: 08/26/20 20:12 Dose: 300 mg Documented by: Sodium Chloride (Saline 0.9%) 1,000 mls @ 50 mls/hr IV .Q20H [facility] Last Admin: 08/26/20 15:01 Dose: 50 mls/hr Documented by: Ibuprofen (Ibuprofen 400 Mg Tab) 400 mg PO Q6HR PRN PRN Reason: Mild Pain or Fever > 100.5 Last Admin: 08/26/20 09:53 Dose: 400 mg Documented by: Levothyroxine Sodium (Levothyroxine 100 Mcg Tab) 100 mcg PO DAILY@0630 [facility] Last Admin: 08/26/20 04:44 Dose: 100 mcg Documented by: Methylprednisolone Sodium Succinate (Methylprednisolone Sod Succi 40 Mg/Ml 1 Ml Vial) 40 mg IV Q8HR [facility] Last Admin: 08/26/20 15:01 Dose: 40 mg Documented by: Naloxone HCl (Naloxone 0.4 Mg/Ml 1 Ml Vial) 0.2 mg IV Q2M PRN PRN Reason: Opioid Reversal Ondansetron HCl (Ondansetron 4 Mg/2 Ml Vial) 4 mg IVP Q8HR PRN PRN Reason: Nausea And Vomiting Zinc Sulfate (Zinc Sulfate 220 Mg Cap) 220 mg PO DAILY [facility] Last Admin: 08/26/20 09:36 Dose: 220 mg Documented by: Physical examination: VITAL SIGNS: 98.2, 82, 20, 125/82, 84% on 15 L GENERAL: Laying prone in the bed, short of breath PSYCH: Alert and oriented x3; mood and affect tired NEUROLOGICAL: Cranial nerves grossly intact. Moving limbs Rest of the exam as per nursing, pulmonary INVESTIGATIONS, reviewed in the clinical context: August 26: D-dimer 1.16 CRP 11.7 August 11: D-dimer 1.16 CRP 11.7 August 10: D-dimer 1.47 CRP 22.6 August 23: D-dimer 1.67 CRP 25.3 August 21: D-dimer 0.53 CRP 6.7 pro-calcitonin 0.02 White count 12.6 hemoglobin 15.1 and platelets 472 increased neutrophils d-dimer 0.38 potassium 4.6 bun 20 creatinine 0.50 CRP 63 Coronavirus PCF-detected EKG tracing personally reviewed by me-no sinus rhythm Chest x-ray film personally reviewed by me-bilateral scattered infiltrates Assessment: -Bilateral COVID 19 pneumonia - slow to respond -Possible gram-negative pneumonia, patient has beige sputum and left shift on CBC-on ceftriaxone -Acute hypoxic respiratory failure from pneumonia-slow to respond , remains on 15 L nasal cannula -Hypothyroid -Morbid obesity BMI 41.6 Plan: Continue IV Solu-Medrol. Ceftriaxone, , High flow oxygen 15 L,, Lovenox. Discussed with patient. Follow with pulmonary
[2020-08-27] MEDS: LEVOTHYROXINE 100 MCG TAB PO SCH (05:46)
--- NOTE | 2020-08-27 06:10 | PN ---
PROGRESS NOTE DATE OF SERVICE: 08/26/2020 REASON FOR FOLLOWUP: COVID-19 pneumonia. INTERVAL HISTORY: Patient is currently afebrile, she is breathing slightly comfortably, however, requiring nonrebreather high-flow oxygen. Denies any chest pain. Minimal cough. No abdominal pain, no diarrhea. PHYSICAL EXAMINATION: Blood pressure 150/85 with a pulse of 81, temperature 98.4. She is 88% on 15 L high- flow oxygen. General description is a middle-aged female up in the bed in no distress. Respiratory system: Unlabored breathing, decreased intensity of breath sounds. Heart S1, S2. Regular rate and rhythm. ABDOMEN: Soft. No tenderness. LABS: D-dimer is down to 1.16. White count shows a downward trend. DIAGNOSTIC IMPRESSION AND PLAN: Patient with acute COVID-19 pneumonia, currently being treated with Remdesivir, Lovenox Solu-Medrol, and zinc sulfate to continue and monitor clinical course closely. Continue supportive care. Thank you. WILLA / HALINAN: [id number] /
[2020-08-27 07:02] LABS: Basophils # (A) 0.1 k/uL (0-0.2); Basophils % (A) 1 %; Eosinophils % (A) 0 %; HCT 45.1 % (34.0-46.0); HGB 14.9 gm/dL (11.4-16.0); Lymphocytes % (A) 9 %; MCH 30.5 pg (25.0-35.0); MCHC 32.9 g/dL (31.0-37.0); MCV 92.6 fL (80.0-100.0); Mean Platelet Volume 6.8; Monocytes # (A) 0.4 k/uL (0-1.0); Monocytes % (A) 3 %; Neutrophils # (A) 10.5 k/uL (1.3-7.7); Neutrophils % (A) 87 %; Platelet Count 512 k/uL (150-450); RBC 4.87 m/uL (3.80-5.40); RDW 13.4 % (11.5-15.5); WBC 12.1 k/uL (3.8-10.6)
[2020-08-27] MEDS: ASCORBIC ACID 500 MG TAB PO SCH (09:03)
[2020-08-27] MEDS: ENOXAPARIN 100 MG/ML SYRINGE SQ SCH ×2 (09:03→20:09)
[2020-08-27] MEDS: buPROPion XL 150 MG TAB.ER.24H PO SCH (09:03)
[2020-08-27] MEDS: GABAPENTIN 300 MG CAP PO SCH ×2 (09:03→20:09)
[2020-08-27] MEDS: ZINC SULFATE 220 MG CAP PO SCH (09:03)
[2020-08-27] MEDS: CHOLECALCIFEROL 1,000 UNIT TAB PO SCH (09:03)
[2020-08-27] MEDS: FAMOTIDINE 20 MG TAB PO SCH ×2 (09:03→20:09)
[2020-08-27] MEDS: methylPREDNISolone SOD SUCCI 40 MG/ML 1 ML VIAL IV SCH ×3 (09:04→22:57)
[2020-08-27 10:19] LABS: African American GFR (CKD) 111.6 (60.0-200.0); Albumin 3.6 g/dL (3.80-4.90); Albumin/Globulin Ratio 1.57 (1.60-3.17); Anion Gap 10.6 mmol/L (4.00-12.00); BUN/Creat Ratio 28.33 Ratio (12.00-20.00); C Reactive Protein 16.7 mg/dL (0.0-0.8); Calcium 8.4 mg/dL (8.7-10.3); Carbon Dioxide 28.4 mmol/L (21.6-31.8); Globulin 2.3 g/dL (1.6-3.3); Non-African American GFR(CKD) 96.3 (60.0-200.0); Total Bilirubin 0.3 mg/dL (0.3-1.2); Total Protein 5.9 g/dL (6.2-8.2)
[2020-08-27] MEDS: IBUPROFEN 400 MG TAB PO PRN (11:07)
[2020-08-27] MEDS ORDERED: OXYMETAZOLINE 0.05% NASL SPRAY 1 SPRAY BOTTLE NASAL PRN ×2 (12:37→12:56)
--- NOTE | 2020-08-27 12:50 | P.PN ---
Subjective Progress Note Date: 08/27/20 65-year-old male patient and the patient came into the emergency department yesterday because of generalized weakness shortness of breath. The patient had a pulse ox of 70%. The patient is a nonsmoker. Apparently symptoms of been progressively getting worse over the past 10 days. she originally got sick around and her symptoms were waxing and waning and progressively she got worse and she ultimately had come to the hospital because of worsening shortness of breath. He had some fever and chills. He had diminished appetite. He had decreased taste and smell. The patient tested positive for COVID 19 by PCR and the patient is currently being treated for this pneumonia. The patient was admitted because of 12.6. The patient has a platelet count of 472. Preservation. Positive normal. D-dimer is not elevated at 0.53. The ferritin level is at 360, the patient has a mild transaminitis with an AST of 76, ALP of 65 with an LDH of 1038. CRP is at 63 and appropriate LEVEL IS AT 0.04. REST X- RAY SHOWING NEW BILATERAL INTERSTITIAL INFILTRATION PERIHILAR. THE PATIENT IS CURRENTLY ON OXYGEN AND THE PATIENT IS CURRENTLY ON 15 L TO MAINTAIN A SATURATION ABOVE 90%. She is afebrile. on today's evaluation of 08/22/2020, the patient is a bit struggling with her breathing. She was able to sit up on a chair or morning. Noted the patient was started on a combination of oxygen delivery systems including high flow oxygen at 15 L nasal cannula and 100% nonrebreather facemask to maintain a saturation between 88-92%. She has some limited cough. No significant sputum production. She is laying comfortably in bed. she is having some mild degree of shortness of breath even at rest. She is not using her muscles of breathing. Note that the patient was started on a combination of Decadron and Remdesivir I'm also inclining giving her a unit of convalescence as her condition. no nausea. No vomiting. No diarrhea. No abdominal pain. No altered mentation. on 08/23/2020 16 the patient for a follow-up. The patient is currently on a 15 L high flow oxygen. On and off she is also using the 100% nonrebreather facemask. She is doing well. No specific complaints. She is getting less short of breath. Her lungs are less achy on today's evaluation. No nausea. No vomiting. She is on day 2 of Remdesivir she is also on Decadron. She receives convalescent plasma. No nausea. No vomiting. No diarrhea. On today's evaluation of 08/24/2020, the patient feels that she is doing slightly better. She still on 100% nonrebreather facemask and 15 L of oxygen by nasal cannula. She is afebrile. She is taken Remdesivir day #3 and Decadron. Her inflammatory markers show a d-dimer of 1.47, ferritin level is up to 1059, her LDH level is down to 509 and her CRP level is down to 22.6. No nausea. No vomiting. No diarrhea. She was able to sit up on a recliner all day. Currently she is back in bed. No other new complaints otherwise for now. No improvement in her oxygenation. Her chest x-ray from yesterday showed bilateral airspace disease and some more confluent density in the upper lobes. The patient is seen today 08/25/2020 in follow-up on the regular medical floor. She is currently resting fairly comfortably in bed. She's been up in the chair most of the day. She is still requiring 15 L high flow nasal cannula along with a nonrebreather to maintain O2 saturations in the 90s. She's been afebrile. Hemodynamically stable. D-dimer 1.16. Reactive protein 11.7. She remains on Lovenox 100 mg subcu every 12 hours. Currently on IV Solu-Medrol. Receiving day #4 of Remdesivir. She was given convalescent plasma as well. Chest x-ray continues to reveal stable diffuse increased lung markings bilaterally compatible with atypical pneumonia. On 08/26/2020, the patient is being seen in follow-up. She remains on high flow oxygen and she is at 60 L. She feels that she is doing better. She is on IV Solu-Medrol. She is on day 5 of Remdesivir she also receives convalescent plasma. She is afebrile. No new complaints for now. She is able to sit up on a recliner. She is upset and the patient is feeling slightly depressed. He is having ongoing respiratory insufficiency and she is slow in recovery. She remains on high flow oxygen for now. On 08/29/2020, the patient remains on 60 L. Unfortunately, there is no major improvement in the patient's oxygenation and she is at the [place]. She is still short of breath with activity. Sometimes shortness of breath with rest. She remains on IV Solu-Medrol. She completed Remdesivir she also received convalescent plasma. She is afebrile.. Blood work from today shows normal electrolytes and sodium level is at 140 with a BUN of 17 and a creatinine of 0.6. Her ferritin level from 08/24/2020 was 1059. Her CRP level from today is at 16.7 and her LDH is at 526. Note that the levels are gradually declining. No nausea. No vomiting. No diarrhea. No altered mentation. Her last chest x- ray was done on 08/25/2020 showed stable bilateral pulmonary infiltrates. Objective - Vital Signs Vital signs: Vital Signs Temp 98.4 F 08/27/20 11:00 Pulse 89 08/27/20 11:00 Resp 22 08/27/20 11:00 BP 131/73 08/27/20 11:00 Pulse Ox 95 08/27/20 11:00 Intake & Output 08/26/20 08/27/20 08/27/20 18:59 06:59 18:59 Other: Voiding Method Bedside Commode # Voids 1 - Exam Gen. appearance she is calm comfortable mild degree of respiratory distress currently on high flow oxygen 60 L by nasal cannula in addition to 100% nonrebreather facemask. Head exam was generally normal. There was no scleral icterus or corneal arcus. Mucous membranes were moist. Neck was supple and without jugular venous distension, thyromegaly, or carotid bruits. Carotids were easily palpable bilaterally. There was no adenopathy. Lungs sounds are diminished and the patient is contacted the lung bases. Cardiac exam revealed the PMI to be normally situated and sized. The rhythm was regular and no extrasystoles were noted during several minutes of auscultation. The first and second heart sounds were normal and physiologic splitting of the second heart sound was noted. There were no murmurs, rubs, clicks, or gallops. Abdomen abdomen Abdominal exam revealed normal bowel sounds. The abdomen was soft, non-tender, and without masses, organomegaly, or appreciable enlargement of the abdominal aorta. Examination of the extremities revealed easily palpable radial, femoral and pedal pulses. There was no cyanosis, clubbing or edema. Examination of the skin revealed no evidence of significant rashes, suspicious appearing nevi or other concerning lesions. - Labs CBC & Chem 7: 08/27/20 06:40 08/27/20 06:45 Labs: Abnormal Lab Results - Last 24 Hours (Table) 08/27/20 08/27/20 08/27/20 Range/Units 06:40 06:40 06:45 WBC 12.1 H (3.8-10.6) k/uL Plt Count 512 H (150-450) k/uL Neutrophils # 10.5 H (1.3-7.7) k/uL D-Dimer 1.17 H (<0.60) mg/L FEU BUN/Creatinine Ratio 28.33 H (12.00-20.00) Ratio Glucose 174 H (70-110) mg/dL Calcium 8.4 L (8.7-10.3) mg/dL ALT 46 H (8-44) U/L Lactate Dehydrogenase 526 H (120-246) U/L C-Reactive Protein 16.7 H (0.0-0.8) mg/dL Total Protein 5.9 L (6.2-8.2) g/dL Albumin 3.60 L (3.80-4.90) g/dL Albumin/Globulin Ratio 1.57 L (1.60-3.17) g/dL Assessment and Plan Plan: 1 acute bilateral pneumonia secondary to Covid 19 infection and the patient is receiving steroids and Remdesivir #5, and the patient is currently on high flow oxygen at 60 L of oxygen which is 100% nonrebreather with 15 L nasal cannula. 2 acute hypoxic respiratory failure currently on 60 L of oxygen by nasal cannula, in addition to 100% nonrebreather facemask. 3 elevated inflammatory markers, mild 4 obesity 5 chronic back pain Plan Utilizing a combination Solu-Medrol, Remdesivir day #5 , vitamin C, vitamin D, zinc, melatonin, and the patient will be gradually wean off FiO2 as tolerated to maintain saturation above 90%. Provide an incentive spirometer. Monitor inflammatory markers . Attempt to titrate FiO2 as tolerated.. Evidence of wean down the FiO2 any further. Currently she is suspected 60 L. Clinically however, she is feeling better and she has more energy. She is currently stable. Monitor the pulse ox.
[2020-08-27] MEDS: SODIUM CHLORIDE 0.9% 1,000 ML IV SCH (15:31)
--- NOTE | 2020-08-27 20:34 | P.PN ---
Progress Note - Text Progress Note Date: 08/27/20 Chief Complaint: Short of breath History of presenting complaint: This is a 65-year-old patient of Dr. carvalho. Chronic stable medical conditions include hypothyroid, herniated disc. She presented to the ER with complaints of weakness and shortness of breath. Her entire family has the cold and a COVID test was negative. Her pulse ox at home and was 78%. And in the ER it was 85%. She is a nonsmoker. Her primary college and career counselor azithromycin, Hydrochlroquin and steroids. She took these but the symptoms are not getting any better. Symptoms have been going on for about 10 days. She is also had some fever and chills. Decreased appetite. Decrease in taste and smell. Had some headaches. Has some diarrhea. Also notices beige sputum. Feels a chest tightness for deep breath. Admitted with bilateral COVID pneumonia, possible gram-negative pneumonia, acute hypoxic respiratory failure. Started on IV Solu-Medrol Lovenox IV ceftriaxone. Remdesivir-added. Patient received a dose of convalescent plasma. Today-feels a shade better today. Sitting of the edge of the bed. Oral intake improving. Short of breath.. Review of systems: Was done for constitutional, cardiovascular, GI, pulmonary. relevant finding as above Active Medications Acetaminophen (Acetaminophen Tab 325 Mg Tab) 650 mg PO Q6HR PRN PRN Reason: Mild Pain or Fever > 100.5 Last Admin: 08/26/20 19:32 Dose: 650 mg Documented by: Ascorbic Acid (Ascorbic Acid 500 Mg Tab) 500 mg PO DAILY [facility] Last Admin: 08/27/20 09:03 Dose: 500 mg Documented by: Bupropion HCl (Bupropion Xl 150 Mg Tab.Er.24h) 150 mg PO DAILY [facility] Last Admin: 08/27/20 09:03 Dose: 150 mg Documented by: Cholecalciferol (Cholecalciferol 1,000 Unit Tab) 1,000 unit PO DAILY [facility] Last Admin: 08/27/20 09:03 Dose: 1,000 unit Documented by: Enoxaparin Sodium (Enoxaparin 100 Mg/Ml Syringe) 100 mg SQ Q12HR [facility] Last Admin: 08/27/20 20:09 Dose: 100 mg Documented by: Famotidine (Famotidine 20 Mg Tab) 20 mg PO BID [facility] Last Admin: 08/27/20 20:09 Dose: 20 mg Documented by: Gabapentin (Gabapentin 300 Mg Cap) 300 mg PO BID [facility] Last Admin: 08/27/20 20:09 Dose: 300 mg Documented by: Sodium Chloride (Saline 0.9%) 1,000 mls @ 50 mls/hr IV .Q20H [facility] Last Admin: 08/27/20 15:31 Dose: 50 mls/hr Documented by: Ibuprofen (Ibuprofen 400 Mg Tab) 400 mg PO Q6HR PRN PRN Reason: Mild Pain or Fever > 100.5 Last Admin: 08/27/20 11:07 Dose: 400 mg Documented by: Levothyroxine Sodium (Levothyroxine 100 Mcg Tab) 100 mcg PO DAILY@0630 [facility] Last Admin: 08/27/20 05:46 Dose: 100 mcg Documented by: Methylprednisolone Sodium Succinate (Methylprednisolone Sod Succi 40 Mg/Ml 1 Ml Vial) 40 mg IV Q8HR [facility] Last Admin: 08/27/20 15:31 Dose: 40 mg Documented by: Naloxone HCl (Naloxone 0.4 Mg/Ml 1 Ml Vial) 0.2 mg IV Q2M PRN PRN Reason: Opioid Reversal Ondansetron HCl (Ondansetron 4 Mg/2 Ml Vial) 4 mg IVP Q8HR PRN PRN Reason: Nausea And Vomiting Oxymetazoline HCl (Oxymetazoline 0.05% Nasl Bapchule 1 Bapchule Bottle) 3 spray NASAL BID PRN PRN Reason: CONGESTION Last Admin: 08/27/20 13:05 Dose: 3 spray Documented by: Zinc Sulfate (Zinc Sulfate 220 Mg Cap) 220 mg PO DAILY [facility] Last Admin: 08/27/20 09:03 Dose: 220 mg Documented by: Physical examination: VITAL SIGNS: 98.4, 89, 22, 131/73, 95% on airvo-90% GENERAL: Sitting of the edge of the bed, tripod, short of breath PSYCH: Alert and oriented x3; mood and affect tired NEUROLOGICAL: Cranial nerves grossly intact. Moving limbs Rest of the exam as per nursing, pulmonary INVESTIGATIONS, reviewed in the clinical context: August 27: D-dimer 1.17 CRP 16.7 potassium 4 creatinine 0.6 August 26: D-dimer 1.16 CRP 11.7 August 25: D-dimer 1.16 CRP 11.7 August 24: D-dimer 1.47 CRP 22.6 August 23: D-dimer 1.67 CRP 25.3 August 21: D-dimer 0.53 CRP 6.7 pro-calcitonin 0.02 White count 12.6 hemoglobin 15.1 and platelets 472 increased neutrophils d-dimer 0.38 potassium 4.6 bun 20 creatinine 0.50 CRP 63 Coronavirus PCF-detected EKG tracing personally reviewed by me-no sinus rhythm Chest x-ray film personally reviewed by me-bilateral scattered infiltrates Assessment: -Bilateral COVID 19 pneumonia - slow to respond -Possible gram-negative pneumonia, patient has beige sputum and left shift on CBC-on ceftriaxone -Acute hypoxic respiratory failure from pneumonia-slow to respond , remains on 15 L nasal cannula -Hypothyroid -Morbid obesity BMI 41.6 Plan: Continue IV Solu-Medrol. Ceftriaxone, , airvo 90%,, Lovenox. Discussed with patient. and pulmonary
[2020-08-27] MEDS: ACETAMINOPHEN TAB 325 MG TAB PO PRN (21:16)
--- NOTE | 2020-08-28 01:39 | PN ---
PROGRESS NOTE DATE OF SERVICE: 08/27/2020 REASON FOR FOLLOWUP: COVID-19 pneumonia. INTERVAL HISTORY: The patient is currently afebrile. Still complaining of shortness of breath on minimal exertion. The patient denies having any chest pain. She did have minimal cough. No nausea, no vomiting. No abdominal pain or diarrhea. Still requiring high-flow oxygen. PHYSICAL EXAMINATION: Blood pressure 140/79 with pulse of 75, temperature 97.9. She is 90% on 60% FiO2. General description is a middle-aged female up in the bed in no distress. RESPIRATORY SYSTEM: Unlabored breathing, a few coarse crackles at the right base. HEART: S1, S2. Regular rate and rhythm. ABDOMEN: Soft, no tenderness. LABS: Hemoglobin is 14.9, white count 12.1. D-dimer is 1.17. Creatinine 0.6. CRP is down to 16.7. DIAGNOSTIC IMPRESSION AND PLAN: Patient with acute COVID-19 pneumonia. Patient has completed her 5-day course of Remdesivir, currently on Solu-Medrol, Lovenox, zinc sulfate along with respiratory support and monitor clinical course closely. MMODL / IJN: [id number] /
[2020-08-28] MEDS: LEVOTHYROXINE 100 MCG TAB PO SCH (05:14)
[2020-08-28] MEDS: GABAPENTIN 300 MG CAP PO SCH ×2 (08:08→20:47)
[2020-08-28] MEDS: ZINC SULFATE 220 MG CAP PO SCH (08:08)
[2020-08-28] MEDS: methylPREDNISolone SOD SUCCI 40 MG/ML 1 ML VIAL IV SCH ×3 (08:08→20:52)
[2020-08-28] MEDS: ENOXAPARIN 100 MG/ML SYRINGE SQ SCH ×2 (08:09→20:50)
[2020-08-28] MEDS: CHOLECALCIFEROL 1,000 UNIT TAB PO SCH (08:09)
[2020-08-28] MEDS: buPROPion XL 150 MG TAB.ER.24H PO SCH (08:09)
[2020-08-28] MEDS: ASCORBIC ACID 500 MG TAB PO SCH (08:09)
[2020-08-28] MEDS: FAMOTIDINE 20 MG TAB PO SCH ×2 (08:09→20:47)
--- NOTE | 2020-08-28 09:10 | XR ---
EXAMINATION TYPE: XR chest 1V portable DATE OF EXAM: 08/28/2020 HISTORY: Shortness of breath. COMPARISON: 08/25/2020 TECHNIQUE: Single view of the chest is submitted. FINDINGS: Demonstrated are scattered senescent parenchymal change. Patchy bilateral infiltrates persist without significant interval change. The heart is stable. Hilar and mediastinal structures are within normal limits. Degenerative changes are seen of the dorsal spine. IMPRESSION: 1. Patchy bilateral infiltrates persist without significant interval change.
[2020-08-28] MEDS: IBUPROFEN 400 MG TAB PO PRN (13:17)
--- NOTE | 2020-08-28 15:17 | PN ---
PROGRESS NOTE A 65-year-old female admitted way back on August 19. The patient has a history of COVID-19 pneumonia/pneumonitis, with severe hypoxemic respiratory failure. Currently, the patient is on AIRVO at 60 L/minutes and a FiO2 of 90%. She is getting saline at 20 mL an hour. She is only minimally better. She is sitting on the side of the bed. She is leaned over her bedside table. She is obviously quite tachypneic and dyspneic. Mild conversational dyspnea. No audible wheezing. No use of accessory muscles. Again, the patient states that she is only minimally better now than she was when she first came. PHYSICAL EXAMINATION: VITAL SIGNS: Current vital signs are reviewed temperature is 96.8, heart rate 70, respiratory rate blood pressure 153/71 mean 98 saturations are 91%. This is on AIRVO at 60 L/minutes and 90% FiO2. Appears mildly tachypneic and dyspneic. HEENT: Examination is grossly unremarkable. Nasal cannula noted. NECK: Supple full range of motion. No adenopathy, thyromegaly or neck vein distention. CARDIOVASCULAR: Examination reveals regular rhythm rate. Heart rate 70. S1, S2 normal. No S3, S4, or murmur. LUNGS: Reveal diffuse coarse rhonchi. No wheezes. A few scattered crackles. Breath sounds equal. ABDOMEN: Obese, bowel sounds are heard. EXTREMITIES: Intact. No cyanosis, clubbing, or edema. SKIN: Without rash. NEUROLOGIC: Examination is brief but nonfocal. CURRENT LAB DATA: Includes a white count of 12.1, hemoglobin, hematocrit, room were normal. Platelet count 512,000. D-dimer from today is 1.21. No additional labs from today except other than a C-reactive protein which is 7.9, down from 16.7. The labs from yesterday are reviewed. Microbiologic studies are all negative thus far. The patient did have a chest x-ray today. The chest x-ray shows diffuse patchy infiltrates bilaterally. CURRENT MEDICATIONS: Reviewed. The patient is on zinc, Afrin nasal spray, Zofran Narcan, Solu- Medrol, levothyroxine, Motrin, Neurontin, Pepcid Lovenox, vitamin D3, Wellbutrin, ascorbic acid, and Tylenol. Assessment. 1. Acute hypoxemic respiratory failure secondary to severe bilateral COVID-19 pneumonitis/pneumonia. The patient currently on air well at 60 L/minute with a FiO2 of 90%. And has received her total [place] allotment of Remdesivir. 2. Acute hypoxemic respiratory failure. 3. Elevated inflammatory markers secondary to COVID-19 infection. 4. Obesity. 5. Chronic back pain. PLAN: The patient has completed her 5 days of Remdesivir. She remains on vitamin C, vitamin D3, and zinc. She remains on corticosteroids. Additional recommendations and suggestions are forthcoming. She is still quite hypoxemic. Chest x-ray shows diffuse bilateral infiltrates. Prognosis is guarded. MMODL / IJN: [id number] / MTDD
[2020-08-28] MEDS: ACETAMINOPHEN TAB 325 MG TAB PO PRN (20:47)
--- NOTE | 2020-08-28 22:45 | PN ---
PROGRESS NOTE DATE OF SERVICE: 08/28/2020 REASON FOR FOLLOWUP: COVID-19 infection. INTERVAL HISTORY: The patient is currently afebrile. The patient is still having shortness of breath on minimal exertion and even at rest. The patient denies having any chest pain, though. Minimal cough which is dry. No nausea, no vomiting. No abdominal pain or diarrhea. PHYSICAL EXAMINATION: Blood pressure 135/81 with a pulse of 73, temperature 97.2. She is 92% on 15 L non- rebreather. General description is a middle-aged female up in the bed in no distress. RESPIRATORY SYSTEM: Unlabored breathing with decreased intensity of breath sounds. No wheeze. HEART: S1, S2. Regular rate and rhythm. ABDOMEN: Soft. No tenderness. LAB: D-dimer is 1.21. CRP is 7.9. DIAGNOSTIC IMPRESSION AND PLAN: Patient with acute COVID-19 infection. Chest x-ray with patchy bilateral infiltrates with no significant interval change. The patient has completed her 5-day course of remdesivir, currently on Lovenox, Solu-Medrol, zinc; to continue along with respiratory support. Monitor clinical course closely. MMODL / IJN: [id number] /
--- NOTE | 2020-08-28 23:50 | P.PN ---
Progress Note - Text Progress Note Date: 08/28/20 Chief Complaint: Short of breath History of presenting complaint: This is a 65-year-old patient of Dr. carvalho. Chronic stable medical conditions include hypothyroid, herniated disc. She presented to the ER with complaints of weakness and shortness of breath. Her entire family has the cold and a COVID test was negative. Her pulse ox at home and was 78%. And in the ER it was 85%. She is a nonsmoker. Her primary care analyst azithromycin, Hydrochlroquin and steroids. She took these but the symptoms are not getting any better. Symptoms have been going on for about 10 days. She is also had some fever and chills. Decreased appetite. Decrease in taste and smell. Had some headaches. Has some diarrhea. Also notices beige sputum. Feels a chest tightness for deep breath. Admitted with bilateral COVID pneumonia, possible gram-negative pneumonia, acute hypoxic respiratory failure. Started on IV Solu-Medrol Lovenox IV ceftriaxone. Remdesivir-added. Patient received a dose of convalescent plasma. Today-sitting at the edge of the bed. Using high flow AIRVO. Short of breath. Did eat a bit. Tired. Had a bout of increased respiratory distress this morning.. Review of systems: Was done for constitutional, cardiovascular, GI, pulmonary. relevant finding as above Active Medications Acetaminophen (Acetaminophen Tab 325 Mg Tab) 650 mg PO Q6HR PRN PRN Reason: Mild Pain or Fever > 100.5 Last Admin: 08/28/20 20:47 Dose: 650 mg Documented by: Ascorbic Acid (Ascorbic Acid 500 Mg Tab) 500 mg PO DAILY [facility] Last Admin: 08/28/20 08:09 Dose: 500 mg Documented by: Bupropion HCl (Bupropion Xl 150 Mg Tab.Er.24h) 150 mg PO DAILY [facility] Last Admin: 08/28/20 08:09 Dose: 150 mg Documented by: Cholecalciferol (Cholecalciferol 1,000 Unit Tab) 1,000 unit PO DAILY [facility] Last Admin: 08/28/20 08:09 Dose: 1,000 unit Documented by: Enoxaparin Sodium (Enoxaparin 100 Mg/Ml Syringe) 100 mg SQ Q12HR [facility] Last Admin: 08/28/20 20:50 Dose: 100 mg Documented by: Famotidine (Famotidine 20 Mg Tab) 20 mg PO BID [facility] Last Admin: 08/28/20 20:47 Dose: 20 mg Documented by: Gabapentin (Gabapentin 300 Mg Cap) 300 mg PO BID [facility] Last Admin: 08/28/20 20:47 Dose: 300 mg Documented by: Ibuprofen (Ibuprofen 400 Mg Tab) 400 mg PO Q6HR PRN PRN Reason: Mild Pain or Fever > 100.5 Last Admin: 08/28/20 13:17 Dose: 400 mg Documented by: Levothyroxine Sodium (Levothyroxine 100 Mcg Tab) 100 mcg PO DAILY@0630 [facility] Last Admin: 08/28/20 05:14 Dose: 100 mcg Documented by: Methylprednisolone Sodium Succinate (Methylprednisolone Sod Succi 40 Mg/Ml 1 Ml Vial) 40 mg IV Q8HR [facility] Last Admin: 08/28/20 20:52 Dose: 40 mg Documented by: Naloxone HCl (Naloxone 0.4 Mg/Ml 1 Ml Vial) 0.2 mg IV Q2M PRN PRN Reason: Opioid Reversal Ondansetron HCl (Ondansetron 4 Mg/2 Ml Vial) 4 mg IVP Q8HR PRN PRN Reason: Nausea And Vomiting Oxymetazoline HCl (Oxymetazoline 0.05% Nasl [place] 1 [place] Bottle) 3 spray NASAL BID PRN PRN Reason: CONGESTION Last Admin: 08/27/20 13:05 Dose: 3 spray Documented by: Zinc Sulfate (Zinc Sulfate 220 Mg Cap) 220 mg PO DAILY [facility] Last Admin: 08/28/20 08:08 Dose: 220 mg Documented by: Physical examination: VITAL SIGNS: 96.8, 70, 20, 153 with 71, 91% on 15 L GENERAL: Sitting of the edge of the bed, tripod, short of breath PSYCH: Alert and oriented x3; mood and affect tired NEUROLOGICAL: Cranial nerves grossly intact. Moving limbs Rest of the exam as per nursing, pulmonary INVESTIGATIONS, reviewed in the clinical context: August 28: D-dimer 1.21 CRP 7.9 August 27: D-dimer 1.17 CRP 16.7 potassium 4 creatinine 0.6 August 26: D-dimer 1.16 CRP 11.7 August 11: D-dimer 1.16 CRP 11.7 August 10: D-dimer 1.47 CRP 22.6 August 23: D-dimer 1.67 CRP 25.3 August 21: D-dimer 0.53 CRP 6.7 pro-calcitonin 0.02 White count 12.6 hemoglobin 15.1 and platelets 472 increased neutrophils d-dimer 0.38 potassium 4.6 bun 20 creatinine 0.50 CRP 63 Coronavirus PCF-detected EKG tracing personally reviewed by me-no sinus rhythm Chest x-ray film personally reviewed by me-bilateral scattered infiltrates Assessment: -Bilateral COVID 19 pneumonia - slow to respond -Possible gram-negative pneumonia, patient has beige sputum and left shift on CBC-on ceftriaxone initially then discontinued -Acute hypoxic respiratory failure from pneumonia-slow to respond , remains on 15 L nasal cannula -Hypothyroid -Morbid obesity BMI 41.6 Plan: Continue IV Solu-Medrol. , airvo 90%,, Lovenox. Discussed with patient. Use incentive spirometry.
[2020-08-29] MEDS: LEVOTHYROXINE 100 MCG TAB PO SCH (05:51)
[2020-08-29] MEDS: FAMOTIDINE 20 MG TAB PO SCH ×2 (09:00→21:10)
[2020-08-29] MEDS: ASCORBIC ACID 500 MG TAB PO SCH (09:00)
[2020-08-29] MEDS: GABAPENTIN 300 MG CAP PO SCH ×2 (09:00→21:10)
[2020-08-29] MEDS: buPROPion XL 150 MG TAB.ER.24H PO SCH (09:01)
[2020-08-29] MEDS: ACETAMINOPHEN TAB 325 MG TAB PO PRN (09:01)
[2020-08-29] MEDS: CHOLECALCIFEROL 1,000 UNIT TAB PO SCH (09:01)
[2020-08-29] MEDS: ZINC SULFATE 220 MG CAP PO SCH (09:01)
[2020-08-29] MEDS: ENOXAPARIN 100 MG/ML SYRINGE SQ SCH ×2 (09:01→21:11)
[2020-08-29] MEDS: IBUPROFEN 400 MG TAB PO PRN ×2 (11:26→21:13)
[2020-08-29] MEDS: methylPREDNISolone SOD SUCCI 40 MG/ML 1 ML VIAL IV SCH ×2 (12:18→21:11)
--- NOTE | 2020-08-29 14:50 | PN ---
PROGRESS NOTE PULMONARY/CRITICAL CARE PROGRESS NOTE: DATE OF SERVICE: August 29, 2020. INTERVAL HISTORY: This is a 65-year-old female admitted way back on August 19. She has a history of COVID-19 pneumonia/pneumonitis with severe hypoxemic respiratory failure. Currently, she is on AIRVO at 60 L/minute with FiO2 of 92%. She also is wearing a partial rebreather mask. She is getting saline at 20 mL an hour. She actually states that she feels a bit better today. She is still quite short of breath. Any activity, she desaturates. She does have a cough. It is mostly dry. She denies any fever, chills. PHYSICAL EXAMINATION: Current vital signs are reviewed temperature is 98. Heart rate 86, respiratory rate 19. Blood pressure 137/76, mean 96 and saturations are 89%. GENERAL: Appears in no acute distress. Mildly tachypneic and dyspneic. No conversational dyspnea. HEENT: Examination is grossly unremarkable. AIRVO cannula are noted as well a partial rebreather mask. NECK is supple full range of motion. No adenopathy. Neck veins are flat. CARDIOVASCULAR: Examination reveals regular rhythm and rate. Heart rate 86. S1, S2 normal. LUNGS: Reveal a few scattered coarse rhonchi. Some bibasilar crackles. No wheezes. Breath sounds equal. ABDOMEN is obese. Bowel sounds are heard. EXTREMITIES are intact. No cyanosis, clubbing, or significant edema. SKIN: Without rash. NEUROLOGIC: Examination is nonfocal. LABS: Reviewed. From today, D-dimer 1.71, and C-reactive protein is 4.8. Microbiologic studies including blood cultures are negative. Chest x-ray from the shows diffuse bilateral patchy infiltrates. MEDICATIONS: Reviewed. Currently, the patient is on Tylenol, vitamin C, Wellbutrin, vitamin D3, Lovenox, Pepcid, Neurontin, Motrin, Synthroid, Solu-Medrol, Narcan, Zofran, Afrin nasal spray, and zinc. ASSESSMENT: 1. Acute hypoxemic respiratory failure secondary to COVID-19 pneumonitis/pneumonia. The patient currently on AIRVO, 60 L/minute with a FiO2 of 92%, as well as a partial rebreather. 2. Elevated inflammatory markers secondary to COVID-19 infection. 3. Obesity. 4. Chronic back pain. PLAN: The patient did receive 5 days of Remdesivir. She remains on vitamin C, vitamin D3, and zinc. She remains on corticosteroids. Currently, the patient is on a partial rebreather mask as well as AIRVO at 60 L/minute and FiO2 of 92%. She is quite short of breath with any activity. She is hanging in there. No additional recommendations are made. We will continue to follow. MMODL / IJN: [id number] /
--- NOTE | 2020-08-29 22:16 | P.PN ---
Progress Note - Text Progress Note Date: 08/29/20 Chief Complaint: Short of breath History of presenting complaint: This is a 65-year-old patient of Dr. carvalho. Chronic stable medical conditions include hypothyroid, herniated disc. She presented to the ER with complaints of weakness and shortness of breath. Her entire family has the cold and a COVID test was negative. Her pulse ox at home and was 78%. And in the ER it was 85%. She is a nonsmoker. Her primary rn progressive care azithromycin, Hydrochlroquin and steroids. She took these but the symptoms are not getting any better. Symptoms have been going on for about 10 days. She is also had some fever and chills. Decreased appetite. Decrease in taste and smell. Had some headaches. Has some diarrhea. Also notices beige sputum. Feels a chest tightness for deep breath. Admitted with bilateral COVID pneumonia, possible gram-negative pneumonia, acute hypoxic respiratory failure. Started on IV Solu-Medrol Lovenox IV ceftriaxone. Remdesivir-added. Patient received a dose of convalescent plasma. Today-sitting at the edge of the bed. Using high flow AIRVO. Short of breath. Eating small amounts spaced out. Review of systems: Was done for constitutional, cardiovascular, GI, pulmonary. relevant finding as above Active Medications Acetaminophen (Acetaminophen Tab 325 Mg Tab) 650 mg PO Q6HR PRN PRN Reason: Mild Pain or Fever > 100.5 Last Admin: 08/29/20 09:01 Dose: 650 mg Documented by: Ascorbic Acid (Ascorbic Acid 500 Mg Tab) 500 mg PO DAILY [facility] Last Admin: 08/29/20 09:00 Dose: 500 mg Documented by: Bupropion HCl (Bupropion Xl 150 Mg Tab.Er.24h) 150 mg PO DAILY [facility] Last Admin: 08/29/20 09:01 Dose: 150 mg Documented by: Cholecalciferol (Cholecalciferol 1,000 Unit Tab) 1,000 unit PO DAILY [facility] Last Admin: 08/29/20 09:01 Dose: 1,000 unit Documented by: Enoxaparin Sodium (Enoxaparin 100 Mg/Ml Syringe) 100 mg SQ Q12HR [facility] Last Admin: 08/29/20 21:11 Dose: 100 mg Documented by: Famotidine (Famotidine 20 Mg Tab) 20 mg PO BID [facility] Last Admin: 08/29/20 21:10 Dose: 20 mg Documented by: Gabapentin (Gabapentin 300 Mg Cap) 300 mg PO BID [facility] Last Admin: 08/29/20 21:10 Dose: 300 mg Documented by: Ibuprofen (Ibuprofen 400 Mg Tab) 400 mg PO Q6HR PRN PRN Reason: Mild Pain or Fever > 100.5 Last Admin: 08/29/20 21:13 Dose: 400 mg Documented by: Levothyroxine Sodium (Levothyroxine 100 Mcg Tab) 100 mcg PO DAILY@0630 [facility] Last Admin: 08/29/20 05:51 Dose: 100 mcg Documented by: Methylprednisolone Sodium Succinate (Methylprednisolone Sod Succi 40 Mg/Ml 1 Ml Vial) 40 mg IV Q8H [facility] Last Admin: 08/29/20 21:11 Dose: 40 mg Documented by: Naloxone HCl (Naloxone 0.4 Mg/Ml 1 Ml Vial) 0.2 mg IV Q2M PRN PRN Reason: Opioid Reversal Ondansetron HCl (Ondansetron 4 Mg/2 Ml Vial) 4 mg IVP Q8HR PRN PRN Reason: Nausea And Vomiting Oxymetazoline HCl (Oxymetazoline 0.05% Nasl [place] 1 [place] Bottle) 3 spray NASAL BID PRN PRN Reason: CONGESTION Last Admin: 08/27/20 13:05 Dose: 3 spray Documented by: Zinc Sulfate (Zinc Sulfate 220 Mg Cap) 220 mg PO DAILY [facility] Last Admin: 08/29/20 09:01 Dose: 220 mg Documented by: Physical examination: VITAL SIGNS: 98, 72, 20, 1:30 was 79, 87% on high flow 90% oxygen GENERAL: Sitting of the edge of the bed, tripod, short of breath PSYCH: Alert and oriented x3; mood and affect tired NEUROLOGICAL: Cranial nerves grossly intact. Moving limbs Rest of the exam as per nursing, pulmonary INVESTIGATIONS, reviewed in the clinical context: August 29: D-dimer 1.71 CRP 4.8 pro-calcitonin 0.03 August 28: D-dimer 1.21 CRP 7.9 August 27: D-dimer 1.17 CRP 16.7 potassium 4 creatinine 0.6 August 26: D-dimer 1.16 CRP 11.7 August 11: D-dimer 1.16 CRP 11.7 August 10: D-dimer 1.47 CRP 22.6 August 9: D-dimer 1.67 CRP 25.3 August 7: D-dimer 0.53 CRP 6.7 pro-calcitonin 0.02 White count 12.6 hemoglobin 15.1 and platelets 472 increased neutrophils d-dimer 0.38 potassium 4.6 bun 20 creatinine 0.50 CRP 63 Coronavirus PCF-detected EKG tracing personally reviewed by me-no sinus rhythm Chest x-ray film personally reviewed by me-bilateral scattered infiltrates Assessment: -Bilateral COVID 19 pneumonia - slow to respond -Possible gram-negative pneumonia, patient has beige sputum and left shift on CBC-on ceftriaxone initially then discontinued -Acute hypoxic respiratory failure from pneumonia-slow to respond , remains on 15 L nasal cannula -Hypothyroid -Morbid obesity BMI 41.6 Plan: Continue IV Solu-Medrol. , airvo 90%,, Lovenox. Discussed with patient. Use incentive spirometry. Follow with pulmonary
--- NOTE | 2020-08-29 23:30 | PN ---
PROGRESS NOTE DATE OF SERVICE: 08/29/2020 REASON FOR FOLLOWUP: COVID-19 pneumonia. INTERVAL HISTORY: The patient is currently afebrile. She is still requiring high-flow nasal cannula oxygen. Denies having any chest pain. Minimal cough. No abdominal pain. No diarrhea. PHYSICAL EXAMINATION: Blood pressure 133/76, pulse of 66, temperature 98.4. She is 87% on 15 L nonrebreather. General description is a middle-aged female up in the bed in no distress. RESPIRATORY SYSTEM: Unlabored breathing, some coarse wheeze at the right lung base. HEART: S1, S2. Regular rate and rhythm. ABDOMEN: Soft. No tenderness. LABS: Procalcitonin normal. CRP is down to 4.8. D-dimer is slightly elevated. DIAGNOSTIC IMPRESSION AND PLAN: Patient with acute COVID-19 pneumonia completed her remdesivir therapy. Lovenox dose has been up to 100 twice a day. Continue with Solu-Medrol, zinc and respiratory support. Monitor clinical course closely. MMCRESENCIOL / IJN: [id number] /
[2020-08-30] MEDS: methylPREDNISolone SOD SUCCI 40 MG/ML 1 ML VIAL IV SCH ×2 (03:16→12:09)
[2020-08-30] MEDS: LEVOTHYROXINE 100 MCG TAB PO SCH (05:50)
[2020-08-30] MEDS: CHOLECALCIFEROL 1,000 UNIT TAB PO SCH (08:36)
[2020-08-30] MEDS: GABAPENTIN 300 MG CAP PO SCH ×2 (08:36→21:23)
[2020-08-30] MEDS: ASCORBIC ACID 500 MG TAB PO SCH (08:36)
[2020-08-30] MEDS: FAMOTIDINE 20 MG TAB PO SCH ×2 (08:36→21:23)
[2020-08-30] MEDS: ENOXAPARIN 100 MG/ML SYRINGE SQ SCH ×2 (08:36→21:23)
[2020-08-30] MEDS: ZINC SULFATE 220 MG CAP PO SCH (08:37)
[2020-08-30] MEDS: buPROPion XL 150 MG TAB.ER.24H PO SCH (08:37)
[2020-08-30] MEDS: ACETAMINOPHEN TAB 325 MG TAB PO PRN ×2 (08:43→21:24)
--- NOTE | 2020-08-30 12:30 | XR ---
EXAMINATION TYPE: XR chest 1V portable DATE OF EXAM: 08/30/2020 HISTORY: Shortness of breath. COMPARISON: 08/28/2020 TECHNIQUE: Single view of the chest is submitted. FINDINGS: Demonstrated are scattered senescent parenchymal change. Bilateral reticulonodular infiltrates persist compatible Covid 19 pneumonia. The heart is stable. Hilar and mediastinal structures are within normal limits. Degenerative changes are seen of the dorsal spine. IMPRESSION: 1. Bilateral reticulonodular infiltrates persist compatible Covid 19 pneumonia.
--- NOTE | 2020-08-30 12:45 | PN ---
PROGRESS NOTE PULMONARY/CRITICAL CARE PROGRESS NOTE: DATE OF SERVICE: 08/30/2020 A 65-year-old female admitted way back on August 19 for an episode of acute COVID-19 pneumonia/pneumonitis with severe hypoxemic respiratory failure. Apparently sometime last night, she became more short of breath. Previously, she was on AIRVO at 60 L/minute and FiO2 of 92%. Currently, she is on BiPAP at 12/6 and 100%. The patient is also getting saline at 20 mL an hour. She feels a bit better on the BiPAP than she did on the AIRVO but still is struggling to breathe. We did talk about the possibility of mechanical ventilation. She is hoping just to be able to get some rest. In addition to being short of breath, she admits to some cough and chest congestion. She denies any fever or chills. There is no chest pain or chest discomfort. Current vital signs are reviewed, her temperature is 98.4, heart rate 61, respiratory rate 26, blood pressure 171/73 mean 105. Her saturations are in the low 90s on the BiPAP. Appears quite tachypneic and dyspneic. Currently BiPAP mask in place. HEENT: Examination is grossly unremarkable. NECK: Supple, full range of motion. No adenopathy. Neck veins are flat. CARDIOVASCULAR: Examination reveals regular rhythm and rate. Heart rate 80 beats per minute. S1, S2 normal. Heart sounds are distant. LUNGS: Reveal diffuse bilateral coarse rhonchi. There are some bibasilar crackles. No wheezes. Breath sounds equal bilaterally but diminished throughout. ABDOMEN: Obese, bowel sounds are heard. EXTREMITIES: Intact. No significant cyanosis, clubbing, or edema. SKIN: Without rash. NEUROLOGIC: Examination is brief but nonfocal. LABS: Reviewed. Currently, her D-dimer is 1.71. Her C-reactive protein is 4.8, and a procalcitonin level is 0.03. Microbiologic studies including blood cultures are all negative thus far. Her most recent chest x-ray dated August 28, 2020 shows diffuse bilateral infiltrates. CURRENT MEDICATIONS: Reviewed. She is on Tylenol, ascorbic acid, Wellbutrin XL, vitamin D3, Lovenox, famotidine, gabapentin, ibuprofen, levothyroxine, Solu-Medrol, Narcan, Zofran, Afrin nasal spray, and zinc. ASSESSMENT: 1. Acute hypoxemic respiratory failure secondary to COVID-19 pneumonitis/pneumonia, currently on BiPAP with settings of IPAP 12, EPAP 6, and 100%. Yesterday, the patient was on AIRVO at 60 L/minute with a FiO2 of 92%. 2. Worsening shortness of breath, which may lead to luis miguel respiratory failure and need for intubation and mechanical ventilation. 3. Elevated inflammatory markers secondary to COVID-19 infection. 4. Obesity. 5. Chronic back pain. PLAN: We talked briefly about intubation and mechanical ventilation. The patient was noncommittal. She is hoping to be able to get some rest on the BiPAP. Her respiratory status is certainly declined a bit. She does feel a bit better on the BiPAP than she did on AIRVO. Will continue to follow. She may need to be transferred to the ICU if she continues to deteriorate. A repeat chest x-ray will be done today. Additional recommendations and suggestions are forthcoming. Prognosis is very guarded. MMODL / IJN: [id number] /
[2020-08-30] MEDS: methylPREDNISolone SOD SUCCI 125 MG/2 ML VIAL IV SCH ×2 (12:59→17:26)
--- NOTE | 2020-08-30 14:24 | P.PN ---
Subjective Progress Note Date: 08/30/20 HISTORY OF PRESENT ILLNESS This is a 65-year-old female had onset of symptoms 10 days ago with fever, cough, shortness of breath. She states for the first 6 or 7 day she was feeling okay but by day #8 she started feeling terrible. She bought pulse ox reader and initially she was running 90% but then dropped down to 78%. She was doing virtual visits with her physician's office and was put on dexamethasone, is azithromycin and completed course. On recheck, patient was placed on hydroxychloroquine. She denies having any abdominal pain. No diarrhea. She complains of a cough with chest pain with coughing, dark beige sputum production. She complains of chest pain with deep inspiration. She is feeling improvement since admission but continues to have cough and shortness of breath. Pulse ox is 90% on 15 L nasal cannula, heart rate 69, blood pressure 140/81. She has been afebrile. W BC 12.6. Lymphocytes normal. Initial d-dimer 0.38 and repeat 0.53. Creatinine 0.5. Ferritin level CCCLX.3. AST 76, ALT 65, alkaline phosphatase 83. LDH 1038. C-reactive protein 63 with repeat of 6.7. COVID-19 positive. Pro-calcitonin was 0.04 and repeat 0.02. Chest x-ray reveals new bilateral interstitial pneumonia. Patient has been started on ceftriaxone, dexamethasone 6 mg oral daily, Lovenox 40 mg subcu daily, supplements. 08/30: Patient completed course of Remdesivir and status post convalescent plasma. Patient takes that she is feeling better. She denies any chest pain but she does have pain with deep breathing. She denies having any abdominal symptoms including abdominal pain, nausea vomiting or diarrhea. Repeat chest x- ray reveals bilateral reticulonodular infiltrates persist. Patient is currently pulse ox 91% on BiPAP. Afebrile, heart rate 83, respiratory rate 28, blood pressure 153/78. blood pressure 154/75. PHYSICAL EXAMINATION Gen: This is a morbidly obese 65-year-old female. Patient is on BiPAP. HEENT: Head is atraumatic, normocephalic. Pupils equal, round. Sclerae is anicteric. NECK: Supple. No JVD. LUNGS: Diminished in the bilateral bases. Mild expiratory wheeze more so on the right side. No intercostal retractions. HEART: Regular rate and rhythm. No murmur. ABDOMEN: Soft. Bowel sounds are present. No masses. No tenderness. EXTREMITIES: No pedal edema. No calf tenderness. NEUROLOGICAL: Patient is awake, alert and oriented x3. ASSESSMENT Covid 19 pneumonia Acute hypoxic respiratory failure Elevated inflammatory markers PLAN Completed course of Remdesivir Status post convalescent plasma Continue Solu-Medrol 60 mg IV every 6 hours, Lovenox 100 mg subcu twice daily, supplements Continue oxygen supplementation and wean as appropriate The above dictated assessment and findings were discussed with Dr. Zazueta. The impression and plan of care have been directed as dictated. Alexandra Garcia nurse practitioner acting as scribe for Dr. Zazueta. Objective - Vital Signs Vital signs: Vital Signs Temp 98.4 F 08/29/20 21:23 Pulse 61 08/30/20 05:00 Resp 26 H 08/30/20 05:00 BP 171/73 08/30/20 05:00 Pulse Ox 93 L 08/30/20 05:00 Intake & Output 08/29/20 08/30/20 08/30/20 18:59 06:59 18:59 Intake Total 500 Balance 500 Intake: Oral 500 Other: Voiding Method Bedside Commode Bedside Commode Bedside Commode # Voids 2 0 # Bowel Movements 0 - Labs CBC & Chem 7: 08/27/20 06:40 08/27/20 06:45 Labs: Abnormal Lab Results - Last 24 Hours (Table) 08/29/20 Range/Units 06:26 C-Reactive Protein 4.8 H (0.0-0.8) mg/dL
--- NOTE | 2020-08-30 22:19 | P.PN ---
Progress Note - Text Progress Note Date: 08/30/20 Chief Complaint: Short of breath History of presenting complaint: This is a 65-year-old patient of Dr. carvalho. Chronic stable medical conditions include hypothyroid, herniated disc. She presented to the ER with complaints of weakness and shortness of breath. Her entire family has the cold and a COVID test was negative. Her pulse ox at home and was 78%. And in the ER it was 85%. She is a nonsmoker. 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 She took these but the symptoms are not getting any better. Symptoms have been going on for about 10 days. She is also had some fever and chills. Decreased appetite. Decrease in taste and smell. Had some headaches. Has some diarrhea. Also notices beige sputum. Feels a chest tightness for deep breath. Admitted with bilateral COVID pneumonia, possible gram-negative pneumonia, acute hypoxic respiratory failure. Started on IV Solu-Medrol Lovenox IV ceftriaxone. Remdesivir-added. Patient received a dose of convalescent plasma. Today-put on a BiPAP today.. Some oral intake. On his recliner Review of systems: Was done for constitutional, cardiovascular, GI, pulmonary. relevant finding as above Active Medications Acetaminophen (Acetaminophen Tab 325 Mg Tab) 650 mg PO Q6HR PRN PRN Reason: Mild Pain or Fever > 100.5 Last Admin: 08/30/20 21:24 Dose: 650 mg Documented by: Ascorbic Acid (Ascorbic Acid 500 Mg Tab) 500 mg PO DAILY [facility] Last Admin: 08/30/20 08:36 Dose: 500 mg Documented by: Bupropion HCl (Bupropion Xl 150 Mg Tab.Er.24h) 150 mg PO DAILY [facility] Last Admin: 08/30/20 08:37 Dose: 150 mg Documented by: Cholecalciferol (Cholecalciferol 1,000 Unit Tab) 1,000 unit PO DAILY [facility] Last Admin: 08/30/20 08:36 Dose: 1,000 unit Documented by: Enoxaparin Sodium (Enoxaparin 100 Mg/Ml Syringe) 100 mg SQ Q12HR [facility] Last Admin: 08/30/20 21:23 Dose: 100 mg Documented by: Famotidine (Famotidine 20 Mg Tab) 20 mg PO BID [facility] Last Admin: 08/30/20 21:23 Dose: 20 mg Documented by: Gabapentin (Gabapentin 300 Mg Cap) 300 mg PO BID [facility] Last Admin: 08/30/20 21:23 Dose: 300 mg Documented by: Ibuprofen (Ibuprofen 400 Mg Tab) 400 mg PO Q6HR PRN PRN Reason: Mild Pain or Fever > 100.5 Last Admin: 08/29/20 21:13 Dose: 400 mg Documented by: Levothyroxine Sodium (Levothyroxine 100 Mcg Tab) 100 mcg PO DAILY@0630 [facility] Last Admin: 08/30/20 05:50 Dose: 100 mcg Documented by: Methylprednisolone Sodium Succinate (Methylprednisolone Sod Succi 125 Mg/2 Ml Vial) 60 mg IV Q6HR [facility] Last Admin: 08/30/20 17:26 Dose: 60 mg Documented by: Naloxone HCl (Naloxone 0.4 Mg/Ml 1 Ml Vial) 0.2 mg IV Q2M PRN PRN Reason: Opioid Reversal Ondansetron HCl (Ondansetron 4 Mg/2 Ml Vial) 4 mg IVP Q8HR PRN PRN Reason: Nausea And Vomiting Oxymetazoline HCl (Oxymetazoline 0.05% Nasl [place] 1 [place] Bottle) 3 spray NASAL BID PRN PRN Reason: CONGESTION Last Admin: 08/27/20 13:05 Dose: 3 spray Documented by: Zinc Sulfate (Zinc Sulfate 220 Mg Cap) 220 mg PO DAILY [facility] Last Admin: 08/30/20 08:37 Dose: 220 mg Documented by: Physical examination: VITAL SIGNS: 98, 83, 28, 153 with 78, 91% on BiPAP GENERAL: Sitting in a recliner, short of breath PSYCH: Alert and oriented x3; mood and affect tired NEUROLOGICAL: Cranial nerves grossly intact. Moving limbs Rest of the exam as per nursing, pulmonary INVESTIGATIONS, reviewed in the clinical context: August 30: D-dimer 1.18, CRP 59.5 August 29: D-dimer 1.71 CRP 4.8 pro-calcitonin 0.03 August 28: D-dimer 1.21 CRP 7.9 August 27: D-dimer 1.17 CRP 16.7 potassium 4 creatinine 0.6 August 26: D-dimer 1.16 CRP 11.7 August 11: D-dimer 1.16 CRP 11.7 August 10: D-dimer 1.47 CRP 22.6 August 9: D-dimer 1.67 CRP 25.3 Christiano 7: D-dimer 0.53 CRP 6.7 pro-calcitonin 0.02 White count 12.6 hemoglobin 15.1 and platelets 472 increased neutrophils d-dimer 0.38 potassium 4.6 bun 20 creatinine 0.50 CRP 63 Coronavirus PCF-detected EKG tracing personally reviewed by me-no sinus rhythm Chest x-ray film personally reviewed by me-bilateral scattered infiltrates Assessment: -Bilateral COVID 19 pneumonia - slow to respond -Possible gram-negative pneumonia, patient has beige sputum and left shift on CBC-on ceftriaxone initially then discontinued -Acute hypoxic respiratory failure from worsening, changed to 2 BiPAP today. -Hypothyroid -Morbid obesity BMI 41.6 Plan: On BiPAP. IV Solu-Medrol increased., Lovenox. On BiPAP. Follow with pulmonary.
[2020-08-31] MEDS: methylPREDNISolone SOD SUCCI 125 MG/2 ML VIAL IV SCH ×4 (00:06→17:27)
[2020-08-31] MEDS: LEVOTHYROXINE 100 MCG TAB PO SCH (05:25)
[2020-08-31] MEDS: buPROPion XL 150 MG TAB.ER.24H PO SCH (07:49)
[2020-08-31] MEDS: ENOXAPARIN 100 MG/ML SYRINGE SQ SCH (07:49)
[2020-08-31] MEDS: ASCORBIC ACID 500 MG TAB PO SCH (07:49)
[2020-08-31] MEDS: FAMOTIDINE 20 MG TAB PO SCH ×2 (07:49→21:51)
[2020-08-31] MEDS: CHOLECALCIFEROL 1,000 UNIT TAB PO SCH (07:49)
[2020-08-31] MEDS: ZINC SULFATE 220 MG CAP PO SCH (07:49)
[2020-08-31] MEDS: GABAPENTIN 300 MG CAP PO SCH ×2 (07:49→21:51)
--- NOTE | 2020-08-31 11:08 | P.PN ---
Subjective Progress Note Date: 08/31/20 HISTORY OF PRESENT ILLNESS This is a 65-year-old female had onset of symptoms 10 days ago with fever, cough, shortness of breath. She states for the first 6 or 7 day she was feeling okay but by day #8 she started feeling terrible. She bought pulse ox reader and initially she was running 90% but then dropped down to 78%. She was doing virtual visits with her physician's office and was put on dexamethasone, is azithromycin and completed course. On recheck, patient was placed on hydroxychloroquine. She denies having any abdominal pain. No diarrhea. She complains of a cough with chest pain with coughing, dark beige sputum production. She complains of chest pain with deep inspiration. She is feeling improvement since admission but continues to have cough and shortness of breath. Pulse ox is 90% on 15 L nasal cannula, heart rate 69, blood pressure 140/81. She has been afebrile. W BC 12.6. Lymphocytes normal. Initial d-dimer 0.38 and repeat 0.53. Creatinine 0.5. Ferritin level CCCLX.3. AST 76, ALT 65, alkaline phosphatase 83. LDH 1038. C-reactive protein 63 with repeat of 6.7. COVID-19 positive. Pro-calcitonin was 0.04 and repeat 0.02. Chest x-ray reveals new bilateral interstitial pneumonia. Patient has been started on ceftriaxone, dexamethasone 6 mg oral daily, Lovenox 40 mg subcu daily, supplements. 08/30: Patient completed course of Remdesivir and status post convalescent plasma. Patient takes that she is feeling better. She denies any chest pain but she does have pain with deep breathing. She denies having any abdominal symptoms including abdominal pain, nausea vomiting or diarrhea. Repeat chest x- ray reveals bilateral reticulonodular infiltrates persist. Patient is currently pulse ox 91% on BiPAP. Afebrile, heart rate 83, respiratory rate 28, blood pressure 153/78. blood pressure 154/75. 08/31: Patient states that she is feeling better today. She feels that her lungs are opening up and she is able to take a deep breath. She continues to cough. She denies any chest pain. She denies abdominal pain, nausea or vomiting. Pulse ox is 89-91% on high flow nasal cannula FiO2 of 80. PHYSICAL EXAMINATION Gen: This is a morbidly obese 65-year-old female. Patient is on BiPAP. HEENT: Head is atraumatic, normocephalic. Pupils equal, round. Sclerae is anicteric. NECK: Supple. No JVD. LUNGS: Crackles to the bilateral bases. No intercostal retractions. HEART: Regular rate and rhythm. No murmur. ABDOMEN: Soft. Bowel sounds are present. No masses. No tenderness. EXTREMITIES: No pedal edema. No calf tenderness. NEUROLOGICAL: Patient is awake, alert and oriented x3. ASSESSMENT Covid 19 pneumonia Acute hypoxic respiratory failure Elevated inflammatory markers PLAN Completed course of Remdesivir Status post convalescent plasma Continue Solu-Medrol 60 mg IV every 6 hours, Lovenox 100 mg subcu twice daily, s upplements Continue oxygen supplementation and wean as appropriate The above dictated assessment and findings were discussed with Dr. Zazueta. The impression and plan of care have been directed as dictated. Alexandra Garcia nurse practitioner acting as scribe for Dr. Zazueta. Objective - Vital Signs Vital signs: Vital Signs Temp 98.1 F 08/31/20 05:00 Pulse 76 08/31/20 05:00 Resp 16 08/31/20 05:00 BP 130/82 08/31/20 05:00 Pulse Ox 89 L 08/31/20 07:53 Intake & Output 08/30/20 08/31/20 08/31/20 18:59 06:59 18:59 Intake Total 240 110 240 Balance 240 110 240 Intake: IV 240 110 .9 KVO 240 110 Oral 240 Other: Voiding Method Bedside Commode Bedside Commode # Voids 0 # Bowel Movements 0 - Labs CBC & Chem 7: 08/27/20 06:40 08/27/20 06:45 Labs: Abnormal Lab Results - Last 24 Hours (Table) 08/30/20 08/30/20 08/31/20 Range/Units 12:45 12:45 05:20 D-Dimer 1.18 H 1.04 H (<0.60) mg/L FEU C-Reactive Protein 59.5 H (<10.0) mg/L 08/31/20 Range/Units 05:20 D-Dimer (<0.60) mg/L FEU C-Reactive Protein 4.4 H (<10.0) mg/L
--- NOTE | 2020-08-31 16:06 | P.PN ---
Subjective Progress Note Date: 08/31/20 Principal diagnosis: Acute bilateral pneumonia secondary to Covid 19 infection 65-year-old male patient and the patient came into the emergency department yesterday because of generalized weakness shortness of breath. The patient had a pulse ox of 70%. The patient is a nonsmoker. Apparently symptoms of been progressively getting worse over the past 10 days. she originally got sick around [facility] and her symptoms were waxing and waning and progressively she got worse and she ultimately had come to the hospital because of worsening shortness of breath. He had some fever and chills. He had diminished appetite. He had decreased taste and smell. The patient tested positive for COVID 19 by PCR and the patient is currently being treated for this pneumonia. The patient was admitted because of 12.6. The patient has a platelet count of 472. Preservation. Positive normal. D-dimer is not elevated at 0.53. The ferritin level is at 360, the patient has a mild transaminitis with an AST of 76, ALP of 65 with an LDH of 1038. CRP is at 63 and appropriate LEVEL IS AT 0.04. REST X- RAY SHOWING NEW BILATERAL INTERSTITIAL INFILTRATION PERIHILAR. THE PATIENT IS CURRENTLY ON OXYGEN AND THE PATIENT IS CURRENTLY ON 15 L TO MAINTAIN A SATURATION ABOVE 90%. She is afebrile. on today's evaluation of 08/22/2020, the patient is a bit struggling with her breathing. She was able to sit up on a chair or morning. Noted the patient was started on a combination of oxygen delivery systems including high flow oxygen at 15 L nasal cannula and 100% nonrebreather facemask to maintain a saturation between 88-92%. She has some limited cough. No significant sputum production. She is laying comfortably in bed. she is having some mild degree of shortness of breath even at rest. She is not using her muscles of breathing. Note that the patient was started on a combination of Decadron and Remdesivir I'm also inclining giving her a unit of convalescence as her condition. no nausea. No vomiting. No diarrhea. No abdominal pain. No altered mentation. on 08/23/2020 16 the patient for a follow-up. The patient is currently on a 15 L high flow oxygen. On and off she is also using the 100% nonrebreather facemask. She is doing well. No specific complaints. She is getting less short of breath. Her lungs are less achy on today's evaluation. No nausea. No vomiting. She is on day 2 of Remdesivir she is also on Decadron. She receives convalescent plasma. No nausea. No vomiting. No diarrhea. On today's evaluation of 08/24/2020, the patient feels that she is doing slightly better. She still on 100% nonrebreather facemask and 15 L of oxygen by nasal cannula. She is afebrile. She is taken Remdesivir day #3 and Decadron. Her inflammatory markers show a d-dimer of 1.47, ferritin level is up to 1059, her LDH level is down to 509 and her CRP level is down to 22.6. No nausea. No vomiting. No diarrhea. She was able to sit up on a recliner all day. Currently she is back in bed. No other new complaints otherwise for now. No improvement in her oxygenation. Her chest x-ray from yesterday showed bilateral airspace disease and some more confluent density in the upper lobes. The patient is seen today 08/25/2020 in follow-up on the regular medical floor. She is currently resting fairly comfortably in bed. She's been up in the chair most of the day. She is still requiring 15 L high flow nasal cannula along with a nonrebreather to maintain O2 saturations in the 90s. She's been afebrile. Hemodynamically stable. D-dimer 1.16. Reactive protein 11.7. She remains on Lovenox 100 mg subcu every 12 hours. Currently on IV Solu-Medrol. Receiving day #4 of Remdesivir. She was given convalescent plasma as well. Chest x-ray continues to reveal stable diffuse increased lung markings bilaterally compatible with atypical pneumonia. The patient is seen today August 31 2020 in follow-up on the regular medical floor. She is currently sitting up at the bedside. Awake and alert in no acute distress. She is breathing a bit better today compared to yesterday. She is still requiring 60 L and 90% of AirVo high flow oxygen to maintain O2 saturation in the 90s. D-dimer 1.04. C-reactive protein 4.4. She is complete course of R emdesivir. She is received convalescent plasma. Currently on IV Solu-Medrol. Lovenox. Vitamin supplements. Objective - Vital Signs Vital signs: Vital Signs Temp 98 F 08/31/20 11:00 Pulse 90 08/31/20 11:00 Resp 24 08/31/20 11:00 BP 139/83 08/31/20 11:00 Pulse Ox 89 L 08/31/20 07:53 Intake & Output 08/30/20 08/31/20 08/31/20 18:59 06:59 18:59 Intake Total 240 110 480 Balance 240 110 480 Intake: IV 240 110 .9 KVO 240 110 Oral 480 Other: Voiding Method Bedside Commode Bedside Commode # Voids 0 # Bowel Movements 0 - Exam Gen. appearance. Pleasant 65-year-old female patient, is calm comfortable, mild degree of respiratory distress currently on AirVo high flow at 60 L and 90% FiO2 in addition to 100% nonrebreather facemask. Head exam was generally normal. There was no scleral icterus or corneal arcus. Mucous membranes were moist. Neck was supple and without jugular venous distension, thyromegaly, or carotid bruits. Carotids were easily palpable bilaterally. There was no adenopathy. Lungs sounds are diminished with crackles in the bilateral lung bases and a few scattered rhonchi. Cardiac exam revealed the PMI to be normally situated and sized. The rhythm was regular and no extrasystoles were noted during several minutes of auscultation. The first and second heart sounds were normal and physiologic splitting of the second heart sound was noted. There were no murmurs, rubs, clicks, or gallops. Abdominal exam revealed normal bowel sounds. The abdomen was soft, non-tender, and without masses, organomegaly, or appreciable enlargement of the abdominal aorta. Examination of the extremities revealed easily palpable radial, femoral and pedal pulses. There was no cyanosis, clubbing or edema. Examination of the skin revealed no evidence of significant rashes, suspicious appearing nevi or other concerning lesions. - Labs CBC & Chem 7: 08/27/20 06:40 08/27/20 06:45 Labs: Abnormal Lab Results - Last 24 Hours (Table) 08/31/20 08/31/20 Range/Units 05:20 05:20 D-Dimer 1.04 H (<0.60) mg/L FEU C-Reactive Protein 4.4 H (0.0-0.8) mg/dL Assessment and Plan Assessment: 1 acute bilateral pneumonia secondary to Covid 19 infection . Completed Remdesivir. Received convalescent plasma. On Lovenox, IV Solu-Medrol. The patient's oxygenation is unchanged the patient continues to be on same amount of oxygen which is 100% nonrebreather with AirVo high flow oxygen at 60 L and 90% FiO2. 2 acute hypoxic respiratory failure currently on AirVo high flow nasal cannula, in addition to 100% nonrebreather facemask. 3 elevated inflammatory markers, mild 4 obesity 5 chronic back pain Plan The patient was seen and evaluated by Dr. Quijano Completed Remdesivir Received convalescent plasma Remains on IV Solu-Medrol, vitamin supplements D-dimer 1.04, decrease Lovenox to 40 daily She has been slow to progress Titrate the FiO2 as tolerated We will continue to follow and make further recommendations based on her clinical status I, the cosigning physician, performed a history & physical examination of the patient. Lungs sounds with by basilar crackles, scattered rhonchi. Maintaining good O2 saturations in the 90s on AirVo high flow with nonrebreather mask. I discussed the assessment and plan of care with my nurse practitioner, Lauren Florentino. I attest to the above note as dictated by her.
[2020-08-31] MEDS: ACETAMINOPHEN TAB 325 MG TAB PO PRN (19:45)
[2020-09-01] MEDS: methylPREDNISolone SOD SUCCI 125 MG/2 ML VIAL IV SCH ×5 (00:03→23:59)
[2020-09-01] MEDS: IBUPROFEN 400 MG TAB PO PRN (04:50)
[2020-09-01] MEDS: LEVOTHYROXINE 100 MCG TAB PO SCH (05:50)
[2020-09-01] MEDS: ASCORBIC ACID 500 MG TAB PO SCH (07:29)
[2020-09-01] MEDS: ENOXAPARIN 40 MG/0.4 ML SYRINGE SQ SCH (07:29)
[2020-09-01] MEDS: CHOLECALCIFEROL 1,000 UNIT TAB PO SCH (07:30)
[2020-09-01] MEDS: buPROPion XL 150 MG TAB.ER.24H PO SCH (07:30)
[2020-09-01] MEDS: GABAPENTIN 300 MG CAP PO SCH ×2 (07:30→21:00)
[2020-09-01] MEDS: FAMOTIDINE 20 MG TAB PO SCH ×2 (07:30→21:01)
[2020-09-01] MEDS: ZINC SULFATE 220 MG CAP PO SCH (07:30)
--- NOTE | 2020-09-01 13:16 | XR ---
EXAMINATION TYPE: XR chest 1V portable DATE OF EXAM: 09/01/2020 COMPARISON: 08/30/2020 INDICATION: Covid TECHNIQUE: Single frontal view of the chest is obtained. FINDINGS: The heart size is normal. The pulmonary vasculature is normal. Diffuse increased lung markings are present. Air bronchograms are present. There may be slight improv ement over the interval. IMPRESSION: 1. Improvement of diffuse bilateral lung infiltrates. Findings can be compatible with atypical pneumo hugo.
--- NOTE | 2020-09-01 14:18 | P.PN ---
Subjective Progress Note Date: 09/01/20 Principal diagnosis: Acute bilateral pneumonia secondary to Covid 19 infection 65-year-old male patient and the patient came into the emergency department yesterday because of generalized weakness shortness of breath. The patient had a pulse ox of 70%. The patient is a nonsmoker. Apparently symptoms of been progressively getting worse over the past 10 days. she originally got sick around [facility] and her symptoms were waxing and waning and progressively she got worse and she ultimately had come to the hospital because of worsening shortness of breath. He had some fever and chills. He had diminished appetite. He had decreased taste and smell. The patient tested positive for COVID 19 by PCR and the patient is currently being treated for this pneumonia. The patient was admitted because of 12.6. The patient has a platelet count of 472. Preservation. Positive normal. D-dimer is not elevated at 0.53. The ferritin level is at 360, the patient has a mild transaminitis with an AST of 76, ALP of 65 with an LDH of 1038. CRP is at 63 and appropriate LEVEL IS AT 0.04. REST X- RAY SHOWING NEW BILATERAL INTERSTITIAL INFILTRATION PERIHILAR. THE PATIENT IS CURRENTLY ON OXYGEN AND THE PATIENT IS CURRENTLY ON 15 L TO MAINTAIN A SATURATION ABOVE 90%. She is afebrile. on today's evaluation of 08/22/2020, the patient is a bit struggling with her breathing. She was able to sit up on a chair or morning. Noted the patient was started on a combination of oxygen delivery systems including high flow oxygen at 15 L nasal cannula and 100% nonrebreather facemask to maintain a saturation between 88-92%. She has some limited cough. No significant sputum production. She is laying comfortably in bed. she is having some mild degree of shortness of breath even at rest. She is not using her muscles of breathing. Note that the patient was started on a combination of Decadron and Remdesivir I'm also inclining giving her a unit of convalescence as her condition. no nausea. No vomiting. No diarrhea. No abdominal pain. No altered mentation. on 08/23/2020 16 the patient for a follow-up. The patient is currently on a 15 L high flow oxygen. On and off she is also using the 100% nonrebreather facemask. She is doing well. No specific complaints. She is getting less short of breath. Her lungs are less achy on today's evaluation. No nausea. No vomiting. She is on day 2 of Remdesivir she is also on Decadron. She receives convalescent plasma. No nausea. No vomiting. No diarrhea. On today's evaluation of 08/24/2020, the patient feels that she is doing slightly better. She still on 100% nonrebreather facemask and 15 L of oxygen by nasal cannula. She is afebrile. She is taken Remdesivir day #3 and Decadron. Her inflammatory markers show a d-dimer of 1.47, ferritin level is up to 1059, her LDH level is down to 509 and her CRP level is down to 22.6. No nausea. No vomiting. No diarrhea. She was able to sit up on a recliner all day. Currently she is back in bed. No other new complaints otherwise for now. No improvement in her oxygenation. Her chest x-ray from yesterday showed bilateral airspace disease and some more confluent density in the upper lobes. The patient is seen today 08/25/2020 in follow-up on the regular medical floor. She is currently resting fairly comfortably in bed. She's been up in the chair most of the day. She is still requiring 15 L high flow nasal cannula along with a nonrebreather to maintain O2 saturations in the 90s. She's been afebrile. Hemodynamically stable. D-dimer 1.16. Reactive protein 11.7. She remains on Lovenox 100 mg subcu every 12 hours. Currently on IV Solu-Medrol. Receiving day #4 of Remdesivir. She was given convalescent plasma as well. Chest x-ray continues to reveal stable diffuse increased lung markings bilaterally compatible with atypical pneumonia. The patient is seen today August 31 2020 in follow-up on the regular medical floor. She is currently sitting up at the bedside. Awake and alert in no acute distress. She is breathing a bit better today compared to yesterday. She is still requiring 60 L and 90% of AirVo high flow oxygen to maintain O2 saturation in the 90s. D-dimer 1.04. C-reactive protein 4.4. She is complete course of R emdesivir. She is received convalescent plasma. Currently on IV Solu-Medrol. Lovenox. Vitamin supplements. The patient is seen today 09/01/2020 in follow-up on the regular medical floor. She is awake and alert in no acute distress. Currently sitting up in a chair at the bedside. States breathing easier today compared to yesterday. She remains on AirVo high flow at 60 L and 90% FiO2. She has been slow to progress. Chest x-ray is showing some improvement in the diffuse bilateral lung infiltrates. She completed a course of Remdesivir. She is received convalescent plasma. Currently on IV Solu-Medrol. Lovenox. Vitamin supplements. Objective - Vital Signs Vital signs: Vital Signs Temp 98.8 F 09/01/20 11:00 Pulse 96 09/01/20 11:00 Resp 24 09/01/20 11:00 BP 146/84 09/01/20 11:00 Pulse Ox 93 L 09/01/20 11:00 Intake & Output 08/31/20 09/01/20 09/01/20 18:59 06:59 18:59 Intake Total 480 1555 Output Total 400 Balance 480 1155 Intake: Oral 480 1555 Output: Urine 400 Other: Voiding Method Bedside Commode # Voids 2 # Bowel Movements 0 - Exam GENERAL EXAM: Alert, very pleasant 65-year-old female patient, on AirVo high flow oxygen at 60 L and 90% FiO2, up in a chair at the bedside. HEAD: Normocephalic. EYES: Normal reaction of pupils, equal size. NOSE: Clear with pink turbinates. THROAT: No erythema or exudates. NECK: No masses, no JVD. CHEST: No chest wall deformity. LUNGS: Equal air entry with bibasilar crackles, scattered rhonchi CVS: S1 and S2 normal with no audible murmur, regular rhythm. ABDOMEN: No hepatosplenomegaly, normal bowel sounds, no guarding or rigidity. SPINE: No scoliosis or deformity SKIN: No rashes CENTRAL NERVOUS SYSTEM: No focal deficits, tone is normal in all 4 extremities. EXTREMITIES: There is no peripheral edema. No clubbing, no cyanosis. Peripheral pulses are intact. - Labs CBC & Chem 7: 08/27/20 06:40 08/27/20 06:45 Assessment and Plan Assessment: 1 Acute bilateral pneumonia secondary to Covid 19 infection . Completed Remdesivir. Received convalescent plasma. On Lovenox, IV Solu-Medrol. The patient's oxygenation is unchanged the patient continues to be on same amount of oxygen which is 100% nonrebreather with AirVo high flow oxygen at 60 L and 90% FiO2. Today's chest x-ray is showing improvement in the bilateral infiltrates. 2 Acute hypoxic respiratory failure currently on AirVo high flow nasal cannula, in addition to 100% nonrebreather facemask. 3 Elevated inflammatory markers, mild 4 Obesity 5 Chronic back pain Plan The patient was seen and evaluated by Dr. Quijano Chest x-ray reviewed, showing slight improvement Remains on IV Solu-Medrol, Lovenox, vitamin supplements Titrate the FiO2 as tolerated We will continue to follow and make further recommendations based on her clinical status I, the cosigning physician, performed a history & physical examination of the patient. Lungs sounds with by basilar crackles, scattered rhonchi. Maintaining good O2 saturations in the 90s on AirVo high flow at 60 L and 90% FiO2 with nonrebreather mask. I discussed the assessment and plan of care with my nurse practitioner, Lauren Florentino. I attest to the above note as dictated by her.
[2020-09-01] MEDS: ACETAMINOPHEN TAB 325 MG TAB PO PRN (15:28)
--- NOTE | 2020-09-01 21:11 | P.PN ---
Progress Note - Text Progress Note Date: 08/31/20 Chief Complaint: Short of breath History of presenting complaint: This is a 65-year-old patient of Dr. carvalho. Chronic stable medical conditions include hypothyroid, herniated disc. She presented to the ER with complaints of weakness and shortness of breath. Her entire family has the cold and a COVID test was negative. Her pulse ox at home and was 78%. And in the ER it was 85%. She is a nonsmoker. Her primary pet care worker azithromycin, Hydrochlroquin and steroids. She took these but the symptoms are not getting any better. Symptoms have been going on for about 10 days. She is also had some fever and chills. Decreased appetite. Decrease in taste and smell. Had some headaches. Has some diarrhea. Also notices beige sputum. Feels a chest tightness for deep breath. Admitted with bilateral COVID pneumonia, possible gram-negative pneumonia, acute hypoxic respiratory failure. Started on IV Solu-Medrol Lovenox IV ceftriaxone. Remdesivir-added. Patient received a dose of convalescent plasma. Today-using BiPAP. Feels a bit better. Started to eat better. Had a bowel movement. Review of systems: Was done for constitutional, cardiovascular, GI, pulmonary. relevant finding as above Active Medications Acetaminophen (Acetaminophen Tab 325 Mg Tab) 650 mg PO Q6HR PRN PRN Reason: Mild Pain or Fever > 100.5 Last Admin: 09/01/20 15:28 Dose: 650 mg Documented by: Ascorbic Acid (Ascorbic Acid 500 Mg Tab) 500 mg PO DAILY [facility] Last Admin: 09/01/20 07:29 Dose: 500 mg Documented by: Bupropion HCl (Bupropion Xl 150 Mg Tab.Er.24h) 150 mg PO DAILY [facility] Last Admin: 09/01/20 07:30 Dose: 150 mg Documented by: Cholecalciferol (Cholecalciferol 1,000 Unit Tab) 1,000 unit PO DAILY [facility] Last Admin: 09/01/20 07:30 Dose: 1,000 unit Documented by: Enoxaparin Sodium (Enoxaparin 40 Mg/0.4 Ml Syringe) 40 mg SQ DAILY [facility] Last Admin: 09/01/20 07:29 Dose: 40 mg Documented by: Famotidine (Famotidine 20 Mg Tab) 20 mg PO BID [facility] Last Admin: 09/01/20 21:01 Dose: 20 mg Documented by: Gabapentin (Gabapentin 300 Mg Cap) 300 mg PO BID [facility] Last Admin: 09/01/20 21:00 Dose: 300 mg Documented by: Ibuprofen (Ibuprofen 400 Mg Tab) 400 mg PO Q6HR PRN PRN Reason: Mild Pain or Fever > 100.5 Last Admin: 09/01/20 04:50 Dose: 400 mg Documented by: Levothyroxine Sodium (Levothyroxine 100 Mcg Tab) 100 mcg PO DAILY@0630 [facility] Last Admin: 09/01/20 05:50 Dose: 100 mcg Documented by: Methylprednisolone Sodium Succinate (Methylprednisolone Sod Succi 125 Mg/2 Ml Vial) 60 mg IV Q6HR [facility] Last Admin: 09/01/20 17:46 Dose: 60 mg Documented by: Naloxone HCl (Naloxone 0.4 Mg/Ml 1 Ml Vial) 0.2 mg IV Q2M PRN PRN Reason: Opioid Reversal Ondansetron HCl (Ondansetron 4 Mg/2 Ml Vial) 4 mg IVP Q8HR PRN PRN Reason: Nausea And Vomiting Oxymetazoline HCl (Oxymetazoline 0.05% Nasl [place] 1 Mesa Bottle) 3 spray NASAL BID PRN PRN Reason: CONGESTION Last Admin: 08/27/20 13:05 Dose: 3 spray Documented by: Zinc Sulfate (Zinc Sulfate 220 Mg Cap) 220 mg PO DAILY [facility] Last Admin: 09/01/20 07:30 Dose: 220 mg Documented by: Physical examination: VITAL SIGNS: 98.1, 78, 18, 1 56 x 80, 90% on 90% FiO2 with a 60 L flow rate GENERAL: Sitting of the edge of the bed, short of breath PSYCH: Alert and oriented x3; mood and affect tired NEUROLOGICAL: Cranial nerves grossly intact. Moving limbs Rest of the exam as per nursing, pulmonary INVESTIGATIONS, reviewed in the clinical context: August 31: D-dimer 1.04 CRP 4.4 August 30: D-dimer 1.18, CRP 59.5 August 29: D-dimer 1.71 CRP 4.8 pro-calcitonin 0.03 August 28: D-dimer 1.21 CRP 7.9 August 27: D-dimer 1.17 CRP 16.7 potassium 4 creatinine 0.6 August 26: D-dimer 1.16 CRP 11.7 August 25: D-dimer 1.16 CRP 11.7 August 24: D-dimer 1.47 CRP 22.6 August 23: D-dimer 1.67 CRP 25.3 August 21: D-dimer 0.53 CRP 6.7 pro-calcitonin 0.02 White count 12.6 hemoglobin 15.1 and platelets 472 increased neutrophils d-dimer 0.38 potassium 4.6 bun 20 creatinine 0.50 CRP 63 Coronavirus PCF-detected EKG tracing personally reviewed by me-no sinus rhythm Chest x-ray film personally reviewed by me-bilateral scattered infiltrates Assessment: -Bilateral COVID 19 pneumonia - slow to respond -Possible gram-negative pneumonia, patient has beige sputum and left shift on CBC-on ceftriaxone initially then discontinued -Acute hypoxic respiratory failure from worsening, continue on BiPAP. -Hypothyroid -Morbid obesity BMI 41.6 Plan: On BiPAP. IV Solu-Medrol Lovenox. Other medications to continue. Discussed with patient. Follow with pulmonary
--- NOTE | 2020-09-01 21:15 | P.PN ---
Progress Note - Text Progress Note Date: 09/01/20 Chief Complaint: Short of breath History of presenting complaint: This is a 65-year-old patient of Dr. carvalho. Chronic stable medical conditions include hypothyroid, herniated disc. She presented to the ER with complaints of weakness and shortness of breath. Her entire family has the cold and a COVID test was negative. Her pulse ox at home and was 78%. And in the ER it was 85%. She is a nonsmoker. Her primary plant care worker azithromycin, Hydrochlroquin and steroids. She took these but the symptoms are not getting any better. Symptoms have been going on for about 10 days. She is also had some fever and chills. Decreased appetite. Decrease in taste and smell. Had some headaches. Has some diarrhea. Also notices beige sputum. Feels a chest tightness for deep breath. Admitted with bilateral COVID pneumonia, possible gram-negative pneumonia, acute hypoxic respiratory failure. Started on IV Solu-Medrol Lovenox IV ceftriaxone. Remdesivir-added. Patient received a dose of convalescent plasma. Today-using BiPAP. Some improvement. Oral intake better. Less tired. Sitting of days the bed. Review of systems: Was done for constitutional, cardiovascular, GI, pulmonary. relevant finding as above Active Medications Acetaminophen (Acetaminophen Tab 325 Mg Tab) 650 mg PO Q6HR PRN PRN Reason: Mild Pain or Fever > 100.5 Last Admin: 09/01/20 15:28 Dose: 650 mg Documented by: Ascorbic Acid (Ascorbic Acid 500 Mg Tab) 500 mg PO DAILY [facility] Last Admin: 09/01/20 07:29 Dose: 500 mg Documented by: Bupropion HCl (Bupropion Xl 150 Mg Tab.Er.24h) 150 mg PO DAILY [facility] Last Admin: 09/01/20 07:30 Dose: 150 mg Documented by: Cholecalciferol (Cholecalciferol 1,000 Unit Tab) 1,000 unit PO DAILY [facility] Last Admin: 09/01/20 07:30 Dose: 1,000 unit Documented by: Enoxaparin Sodium (Enoxaparin 40 Mg/0.4 Ml Syringe) 40 mg SQ DAILY [facility] Last Admin: 09/01/20 07:29 Dose: 40 mg Documented by: Famotidine (Famotidine 20 Mg Tab) 20 mg PO BID [facility] Last Admin: 09/01/20 21:01 Dose: 20 mg Documented by: Gabapentin (Gabapentin 300 Mg Cap) 300 mg PO BID [facility] Last Admin: 09/01/20 21:00 Dose: 300 mg Documented by: Ibuprofen (Ibuprofen 400 Mg Tab) 400 mg PO Q6HR PRN PRN Reason: Mild Pain or Fever > 100.5 Last Admin: 09/01/20 04:50 Dose: 400 mg Documented by: Levothyroxine Sodium (Levothyroxine 100 Mcg Tab) 100 mcg PO DAILY@0630 [facility] Last Admin: 09/01/20 05:50 Dose: 100 mcg Documented by: Methylprednisolone Sodium Succinate (Methylprednisolone Sod Succi 125 Mg/2 Ml Vial) 60 mg IV Q6HR [facility] Last Admin: 09/01/20 17:46 Dose: 60 mg Documented by: Naloxone HCl (Naloxone 0.4 Mg/Ml 1 Ml Vial) 0.2 mg IV Q2M PRN PRN Reason: Opioid Reversal Ondansetron HCl (Ondansetron 4 Mg/2 Ml Vial) 4 mg IVP Q8HR PRN PRN Reason: Nausea And Vomiting Oxymetazoline HCl (Oxymetazoline 0.05% Nasl [place] 1 Liberty Bottle) 3 spray NASAL BID PRN PRN Reason: CONGESTION Last Admin: 08/27/20 13:05 Dose: 3 spray Documented by: Zinc Sulfate (Zinc Sulfate 220 Mg Cap) 220 mg PO DAILY [facility] Last Admin: 09/01/20 07:30 Dose: 220 mg Documented by: Physical examination: VITAL SIGNS: 98.8, 96, 24, 1 4694, 93% on 60 L/ 90% FiO2. GENERAL: Sitting of the edge of the bed, a bit less short of breath PSYCH: Alert and oriented x3; mood and affect tired NEUROLOGICAL: Cranial nerves grossly intact. Moving limbs Rest of the exam as per nursing, pulmonary INVESTIGATIONS, reviewed in the clinical context: August 31: D-dimer 1.04 CRP 4.4Chest x-ray film personally reviewed by me- bilateral diffuse infiltrates-slight improvement reported August 30: D-dimer 1.18, CRP 59.5 August 29: D-dimer 1.71 CRP 4.8 pro-calcitonin 0.03 August 28: D-dimer 1.21 CRP 7.9 August 27: D-dimer 1.17 CRP 16.7 potassium 4 creatinine 0.6 August 26: D-dimer 1.16 CRP 11.7 August 11: D-dimer 1.16 CRP 11.7 August 10: D-dimer 1.47 CRP 22.6 August 9: D-dimer 1.67 CRP 25.3 August 7: D-dimer 0.53 CRP 6.7 pro-calcitonin 0.02 White count 12.6 hemoglobin 15.1 and platelets 472 increased neutrophils d-dimer 0.38 potassium 4.6 bun 20 creatinine 0.50 CRP 63 Coronavirus PCF-detected EKG tracing personally reviewed by me-no sinus rhythm Chest x-ray film personally reviewed by me-bilateral scattered infiltrates Assessment: -Bilateral COVID 19 pneumonia - slow to respond -Possible gram-negative pneumonia, patient has beige sputum and left shift on CBC-on ceftriaxone initially then discontinued -Acute hypoxic respiratory failure from worsening, continue on BiPAP. -Hypothyroid -Morbid obesity BMI 41.6 Plan: On BiPAP. IV Solu-Medrol Lovenox. Other medications to continue. Discussed with patient. Follow with pulmonary
--- NOTE | 2020-09-02 00:36 | PN ---
PROGRESS NOTE DATE OF SERVICE: 09/01/2020 REASON FOR FOLLOWUP: Covid 19 pneumonia. INTERVAL HISTORY: The patient is currently afebrile. She did mention she was feeling slightly better and she was able to take deep breath and get up and walk without any significant shortness of breath. Denies any chest pain. Minimal cough. No abdominal pain. No diarrhea. PHYSICAL EXAMINATION: Blood pressure 114/73 with a pulse of 95. Temperature 97. She is 94% on 55% FiO2. General description is a middle-aged female up in the bed in no distress. Respiratory system: Unlabored breathing. Coarse crackles in the right base. Heart S1, S2. Regular rate and rhythm. Abdomen soft. No tenderness. LABS: BUN of 17, creatinine 0.6. 46. CRP is 16.7 . DIAGNOSTIC IMPRESSION AND PLAN: Patient with acute COVID-19 infection. Minimal clinical improvement. The patient has complete Remdesivir therapy, currently on Lovenox, Solu Medrol and zinc to continue and continue supportive care. MMODL / IJN: [id number] /
[2020-09-02] MEDS: ACETAMINOPHEN TAB 325 MG TAB PO PRN ×3 (04:05→20:24)
[2020-09-02] MEDS: LEVOTHYROXINE 100 MCG TAB PO SCH (05:35)
[2020-09-02] MEDS: methylPREDNISolone SOD SUCCI 125 MG/2 ML VIAL IV SCH ×4 (06:26→23:43)
[2020-09-02] MEDS: GABAPENTIN 300 MG CAP PO SCH ×2 (08:28→20:24)
[2020-09-02] MEDS: ASCORBIC ACID 500 MG TAB PO SCH (08:28)
[2020-09-02] MEDS: FAMOTIDINE 20 MG TAB PO SCH ×2 (08:28→20:24)
[2020-09-02] MEDS: ZINC SULFATE 220 MG CAP PO SCH (08:28)
[2020-09-02] MEDS: buPROPion XL 150 MG TAB.ER.24H PO SCH (08:28)
[2020-09-02] MEDS: CHOLECALCIFEROL 1,000 UNIT TAB PO SCH (08:28)
[2020-09-02] MEDS: ENOXAPARIN 40 MG/0.4 ML SYRINGE SQ SCH (08:28)
[2020-09-02] MEDS: IBUPROFEN 400 MG TAB PO PRN (09:20)
[2020-09-02] MEDS: FUROSEMIDE 10 MG/ML 4 ML VIAL IV SCH ×2 (11:32→20:24)
--- NOTE | 2020-09-02 13:15 | P.PN ---
Subjective Progress Note Date: 09/02/20 Principal diagnosis: Acute bilateral pneumonia secondary to Covid 19 infection 65-year-old male patient and the patient came into the emergency department yesterday because of generalized weakness shortness of breath. The patient had a pulse ox of 70%. The patient is a nonsmoker. Apparently symptoms of been progressively getting worse over the past 10 days. she originally got sick around [facility] and her symptoms were waxing and waning and progressively she got worse and she ultimately had come to the hospital because of worsening shortness of breath. He had some fever and chills. He had diminished appetite. He had decreased taste and smell. The patient tested positive for COVID 19 by PCR and the patient is currently being treated for this pneumonia. The patient was admitted because of 12.6. The patient has a platelet count of 472. Preservation. Positive normal. D-dimer is not elevated at 0.53. The ferritin level is at 360, the patient has a mild transaminitis with an AST of 76, ALP of 65 with an LDH of 1038. CRP is at 63 and appropriate LEVEL IS AT 0.04. REST X- RAY SHOWING NEW BILATERAL INTERSTITIAL INFILTRATION PERIHILAR. THE PATIENT IS CURRENTLY ON OXYGEN AND THE PATIENT IS CURRENTLY ON 15 L TO MAINTAIN A SATURATION ABOVE 90%. She is afebrile. on today's evaluation of 08/22/2020, the patient is a bit struggling with her breathing. She was able to sit up on a chair or morning. Noted the patient was started on a combination of oxygen delivery systems including high flow oxygen at 15 L nasal cannula and 100% nonrebreather facemask to maintain a saturation between 88-92%. She has some limited cough. No significant sputum production. She is laying comfortably in bed. she is having some mild degree of shortness of breath even at rest. She is not using her muscles of breathing. Note that the patient was started on a combination of Decadron and Remdesivir I'm also inclining giving her a unit of convalescence as her condition. no nausea. No vomiting. No diarrhea. No abdominal pain. No altered mentation. on 08/23/2020 16 the patient for a follow-up. The patient is currently on a 15 L high flow oxygen. On and off she is also using the 100% nonrebreather facemask. She is doing well. No specific complaints. She is getting less short of breath. Her lungs are less achy on today's evaluation. No nausea. No vomiting. She is on day 2 of Remdesivir she is also on Decadron. She receives convalescent plasma. No nausea. No vomiting. No diarrhea. On today's evaluation of 08/24/2020, the patient feels that she is doing slightly better. She still on 100% nonrebreather facemask and 15 L of oxygen by nasal cannula. She is afebrile. She is taken Remdesivir day #3 and Decadron. Her inflammatory markers show a d-dimer of 1.47, ferritin level is up to 1059, her LDH level is down to 509 and her CRP level is down to 22.6. No nausea. No vomiting. No diarrhea. She was able to sit up on a recliner all day. Currently she is back in bed. No other new complaints otherwise for now. No improvement in her oxygenation. Her chest x-ray from yesterday showed bilateral airspace disease and some more confluent density in the upper lobes. The patient is seen today 08/25/2020 in follow-up on the regular medical floor. She is currently resting fairly comfortably in bed. She's been up in the chair most of the day. She is still requiring 15 L high flow nasal cannula along with a nonrebreather to maintain O2 saturations in the 90s. She's been afebrile. Hemodynamically stable. D-dimer 1.16. Reactive protein 11.7. She remains on Lovenox 100 mg subcu every 12 hours. Currently on IV Solu-Medrol. Receiving day #4 of Remdesivir. She was given convalescent plasma as well. Chest x-ray continues to reveal stable diffuse increased lung markings bilaterally compatible with atypical pneumonia. The patient is seen today August 31 2020 in follow-up on the regular medical floor. She is currently sitting up at the bedside. Awake and alert in no acute distress. She is breathing a bit better today compared to yesterday. She is still requiring 60 L and 90% of AirVo high flow oxygen to maintain O2 saturation in the 90s. D-dimer 1.04. C-reactive protein 4.4. She is complete course of R emdesivir. She is received convalescent plasma. Currently on IV Solu-Medrol. Lovenox. Vitamin supplements. The patient is seen today 09/01/2020 in follow-up on the regular medical floor. She is awake and alert in no acute distress. Currently sitting up in a chair at the bedside. States breathing easier today compared to yesterday. She remains on AirVo high flow at 60 L and 90% FiO2. She has been slow to progress. Chest x-ray is showing some improvement in the diffuse bilateral lung infiltrates. She completed a course of Remdesivir. She is received convalescent plasma. Currently on IV Solu-Medrol. Lovenox. Vitamin supplements. The patient is seen again today 09/02/2020 in follow-up on the regular medical floor. She is currently sitting up at the bedside. Awake and alert in no acute distress. She feels she is breathing a bit better today compared to yesterday. She does still require 60 L and 90% FiO2 on the AirVo high flow oxygen device along with a nonrebreather mask. She is noted to have some increased edema of the lower extremities. She has basilar crackles and bronchial breath sounds noted. She remains on Lovenox, IV Solu-Medrol, and vitamin supplements. Objective - Vital Signs Vital signs: Vital Signs Temp 98.0 F 09/02/20 12:40 Pulse 65 09/02/20 12:40 Resp 18 09/02/20 12:40 BP 141/70 09/02/20 12:40 Pulse Ox 91 L 09/02/20 12:40 Intake & Output 09/01/20 09/02/20 09/02/20 18:59 06:59 18:59 Intake Total 0 Balance 0 Intake: Blood Product 0 Ffp Pher Conval Covid19 0 Acda 1 Unit [id number] Other: # Voids 4 4 # Bowel Movements 1 - Exam GENERAL EXAM: Alert, very pleasant 65-year-old female patient, on AirVo high flow oxygen at 60 L and 90% FiO2, up in a chair at the bedside. HEAD: Normocephalic. EYES: Normal reaction of pupils, equal size. NOSE: Clear with pink turbinates. THROAT: No erythema or exudates. NECK: No masses, no JVD. CHEST: No chest wall deformity. LUNGS: Equal air entry with bibasilar crackles, scattered rhonchi CVS: S1 and S2 normal with no audible murmur, regular rhythm. ABDOMEN: No hepatosplenomegaly, normal bowel sounds, no guarding or rigidity. SPINE: No scoliosis or deformity SKIN: No rashes CENTRAL NERVOUS SYSTEM: No focal deficits, tone is normal in all 4 extremities. EXTREMITIES: There is 1-2+ peripheral edema. No clubbing, no cyanosis. Peripheral pulses are intact. - Labs CBC & Chem 7: 08/27/20 06:40 08/27/20 06:45 Assessment and Plan Assessment: 1 Acute bilateral pneumonia secondary to Covid 19 infection . Completed Remdesivir. Received convalescent plasma x 2. On Lovenox, IV Solu-Medrol. The patient's oxygenation is unchanged the patient continues to be on same amount of oxygen which is 100% nonrebreather with AirVo high flow oxygen at 60 L and 90% FiO2. 2 Acute hypoxic respiratory failure currently on AirVo high flow nasal cannula, in addition to 100% nonrebreather facemask. 3 Elevated inflammatory markers, mild 4 Obesity 5 Chronic back pain 6 Peripheral edema Plan The patient was seen and evaluated by Dr. Quijano Add Lasix 40 mg IVP every 12 hours. Give second dose of convalescent plasma Repeat chest x-ray in a.m. Remains on IV Solu-Medrol, Lovenox, vitamin supplements Titrate the FiO2 as tolerated We will continue to follow and make further recommendations based on her clinical status I, the cosigning physician, performed a history & physical examination of the patient. Lungs sounds with by basilar crackles, scattered rhonchi. Maintaining good O2 saturations in the 90s on AirVo high flow at 60 L and 90% FiO2 with nonrebreather mask. I discussed the assessment and plan of care with my nurse practitioner, Lauren Floretnino. I attest to the above note as dictated by her.
[2020-09-02] MEDS ORDERED: SODIUM CHLORIDE 0.65% NASAL SPRAY 44 ML BTL NASAL PRN (15:26)
--- NOTE | 2020-09-02 16:51 | P.PN ---
Subjective Progress Note Date: 09/02/20 Principal diagnosis: sob Patient is feeling better overall. She complained about having to urinate frequently since her Lasix was started. She complained that she cannot breathe through her nose due to ''blockage by clot''. No pain or significant shortness of breath. No fevers or chills. No nausea or vomiting. Objective - Vital Signs Vital signs: Vital Signs Temp 98.0 F 09/02/20 13:45 Pulse 88 09/02/20 13:45 Resp 20 09/02/20 13:45 BP 127/64 09/02/20 13:45 Pulse Ox 87 L 09/02/20 16:05 Intake & Output 09/01/20 09/02/20 09/02/20 18:59 06:59 18:59 Intake Total 213 Balance 213 Intake: Blood Product 213 Ffp Pher Conval Covid19 213 Acda 1 Unit [id number] Other: # Voids 4 4 # Bowel Movements 1 - Exam Constitutional: No acute distress, conversant, pleasant Eyes:Anicteric sclerae, moist conjunctiva, no lid-lag, PERRLA, ENMT: Oropharynx clear, no erythema, exudates Neck: Supple, FROM, no masses, or JVD, No carotid bruits, No thyromegaly Lungs: Clear to auscultation, Clear to percussion, Normal respiratory effort, no accessory muscle use Cardiovascular: Heart regular in rate and rhythm, No murmurs, gallops, or rubs, No peripheral edema Abdominal: Soft, Nontender, no guarding, rebound or rigidity, Normoactive bowel sounds, No hepatomegaly, No splenomegaly, No palpable mass Skin: Normal temperature, tone, texture, turgor, no induration, No subcutaneous nodules, No rash, lesions, No ulcers Extremities: No digital cyanosis, No clubbing, Pedal pulses intact and symmet rical, Radial pulses intact and symmetrical, No calf tenderness Psychiatric: Alert and oriented to person, place and time, appropriate affect, intact judgement Neuro: Muscles Strength 5/5 in all 4 extremities, Sensation to light touch grossly present throughout, Cranial nerves II-XII grossly intact, no focal sensory deficits - Labs CBC & Chem 7: 08/27/20 06:40 08/27/20 06:45 Assessment and Plan Plan: -Bilateral COVID 19 pneumonia - slow to respond -Acute hypoxic respiratory failure was on BiPAP now on Airvo 60L as well as NRB mask. -Hypothyroid -Morbid obesity BMI 41.6 Plan: Patient continues to be hypoxic, continue oxygen supplements Saline nasal spray for nasal congestion She completed a course of Remdesivir. Getting second dose of convalescent plasma today. Continue on IV Solu-Medrol. Lovenox. Vitamin supplements. Pulmonary service following, Lasix added by pulmonary due to leg swelling and suspected pulmonary edema Continue rest of her medications. Structured outpatient weight loss
[2020-09-02] MEDS: NYSTATIN 100,000 UNIT/ML SUSP 500,000 UNIT/5 ML CUP PO SCH ×2 (17:15→21:31)
--- NOTE | 2020-09-02 22:35 | PN ---
PROGRESS NOTE DATE OF SERVICE: 09/02/2020 REASON FOR FOLLOWUP: COVID-19 pneumonia. INTERVAL HISTORY: The patient is currently afebrile. The patient is feeling slightly better. Patient is breathing more comfortably, still requiring non-rebreather, high-flow oxygen. Denies having chest pain. Minimal cough. No abdominal pain. No diarrhea. EXAMINATION: Blood pressure 143/72 with a pulse of 88, temperature of 97.9. She is 90% on high-flow oxygen. General description is a middle-aged female lying in bed in no distress. Respiratory system: Unlabored breathing. Few coarse breath sounds at the base. Heart S1, S2. Regular rate and rhythm. Abdomen soft, no tenderness. LABS: No new labs have been obtained today. DIAGNOSTIC IMPRESSION AND PLAN: Patient with acute COVID-19 pneumonia in this patient currently with Lovenox, Solu-Medrol and zinc to continue along with respiratory support and monitor clinical course closely. MMODL / IJN: [id number] /
[2020-09-03] MEDS: ACETAMINOPHEN TAB 325 MG TAB PO PRN (03:01)
[2020-09-03] MEDS: methylPREDNISolone SOD SUCCI 125 MG/2 ML VIAL IV SCH ×3 (05:17→18:01)
[2020-09-03] MEDS: LEVOTHYROXINE 100 MCG TAB PO SCH (05:17)
[2020-09-03] MEDS: IBUPROFEN 400 MG TAB PO PRN (06:12)
--- NOTE | 2020-09-03 07:42 | XR ---
EXAMINATION TYPE: XR chest 1V portable DATE OF EXAM: 09/03/2020 HISTORY: Shortness of breath. COMPARISON: 09/01/2020 TECHNIQUE: Single view of the chest is submitted. FINDINGS: Demonstrated are scattered senescent parenchymal change. Diffuse bilateral airspace infiltrates persist without significant change. The heart is stable. Hilar and mediastinal structures are within normal limits. Degenerative changes are seen of the dorsal spine. IMPRESSION: 1. Diffuse bilateral airspace infiltrates persist without significant change.
[2020-09-03] MEDS: FAMOTIDINE 20 MG TAB PO SCH ×2 (08:02→20:21)
[2020-09-03] MEDS: GABAPENTIN 300 MG CAP PO SCH ×2 (08:02→20:21)
[2020-09-03] MEDS: CHOLECALCIFEROL 1,000 UNIT TAB PO SCH (08:02)
[2020-09-03] MEDS: buPROPion XL 150 MG TAB.ER.24H PO SCH (08:02)
[2020-09-03] MEDS: ZINC SULFATE 220 MG CAP PO SCH (08:02)
[2020-09-03] MEDS: ASCORBIC ACID 500 MG TAB PO SCH (08:02)
[2020-09-03] MEDS: NYSTATIN 100,000 UNIT/ML SUSP 500,000 UNIT/5 ML CUP PO SCH ×4 (08:02→21:28)
[2020-09-03] MEDS: ENOXAPARIN 40 MG/0.4 ML SYRINGE SQ SCH (08:02)
[2020-09-03] MEDS: FUROSEMIDE 10 MG/ML 4 ML VIAL IV SCH ×3 (08:03→20:22)
[2020-09-03 08:29] LABS: Basophils % (A) 0 %; Eosinophils # (A) 0.1 k/uL (0-0.7); Eosinophils % (A) 1 %; HCT 44.6 % (34.0-46.0); HGB 14.3 gm/dL (11.4-16.0); Lymphocytes # (A) 0.3 k/uL (1.0-4.8); Lymphocytes % (A) 2 %; MCH 29.2 pg (25.0-35.0); MCHC 32.1 g/dL (31.0-37.0); MCV 91.2 fL (80.0-100.0); Mean Platelet Volume 7.2; Monocytes # (A) 0.5 k/uL (0-1.0); Monocytes % (A) 3 %; Neutrophils # (A) 17.3 k/uL (1.3-7.7); Neutrophils % (A) 95 %; Platelet Count 420 k/uL (150-450); RBC 4.89 m/uL (3.80-5.40); RDW 13.8 % (11.5-15.5); WBC 18.2 k/uL (3.8-10.6)
[2020-09-03] MEDS ORDERED: FUROSEMIDE 10 MG/ML 4 ML VIAL IV STA (09:07)
[2020-09-03 09:46] LABS: ABG Base Excess 17.7 mmol/L; ABG Oxygen Saturation 86.4 % (94-97); ABG PCO2 53 mmHg (35-45); ABG TCO2 43 mmol/L (19-24); Allen Test Performed? Yes
[2020-09-03 09:49] LABS: ABG HCO3 41 mmol/L (21-25); ABG PO2 50 mmHg (83-108)
[2020-09-03] MEDS ORDERED: SODIUM CHLORIDE 0.9% 1,000 ML IV SCH (11:00)
[2020-09-03 11:25] LABS: ALT 69 U/L (4-34); AST 47 U/L (14-36); African American GFR (CKD) >90 (>60 ml/min/1.73 sqM); Albumin 3.2 g/dL (3.5-5.0); Alkaline Phosphatase 98 U/L (38-126); Blood Urea Nitrogen 19 mg/dL (7-17); Calcium 8.4 mg/dL (8.4-10.2); Chloride 88 mmol/L (98-107); Glucose 241 mg/dL (74-99); Non-African American GFR(CKD) >90 (>60 ml/min/1.73 sqM); Potassium 3.4 mmol/L (3.5-5.1); Sodium 135 mmol/L (137-145); Total Bilirubin 0.9 mg/dL (0.2-1.3)
[2020-09-03 11:32] LABS: Anion Gap 5 mmol/L
[2020-09-03 11:33] LABS: Carbon Dioxide 42 mmol/L (22-30)
[2020-09-03 11:47] LABS: Basophils % (A) 0 %; Eosinophils % (A) 0 %; HCT 45.9 % (34.0-46.0); HGB 14.5 gm/dL (11.4-16.0); Lymphocytes # (A) 0.2 k/uL (1.0-4.8); Lymphocytes % (A) 1 %; MCH 28.8 pg (25.0-35.0); MCHC 31.6 g/dL (31.0-37.0); MCV 91.1 fL (80.0-100.0); Monocytes # (A) 0.5 k/uL (0-1.0); Monocytes % (A) 3 %; Neutrophils # (A) 17.7 k/uL (1.3-7.7); Neutrophils % (A) 96 %; Platelet Count 451 k/uL (150-450); RBC 5.04 m/uL (3.80-5.40); RDW 13.9 % (11.5-15.5); WBC 18.6 k/uL (3.8-10.6)
[2020-09-03 12:05] LABS: Glucose,Whole Blood 227 mg/dL (75-99)
[2020-09-03] MEDS ORDERED: Potassium Replacement Protocol 1 EACH MISC MISCELLANE PRN (12:12)
[2020-09-03] MEDS: INSULIN ASPART (NovoLOG) 100 UNIT/ML VIAL SQ SCH ×3 (12:18→21:33)
[2020-09-03] MEDS: POTASSIUM CHLORIDE 20 MEQ in WATER FOR INJECTION 1 100ML.BAG IVPB SCH ×2 (12:18→14:16)
[2020-09-03 12:36] LABS: African American GFR (CKD) 118.5 (60.0-200.0); Albumin 3.5 g/dL (3.80-4.90); Albumin/Globulin Ratio 1.84 (1.60-3.17); Calcium 8.7 mg/dL (8.7-10.3); Globulin 1.9 g/dL (1.6-3.3); Magnesium 2.1 mg/dL (1.5-2.4); Non-African American GFR(CKD) 102.3 (60.0-200.0); Potassium 3.5 mmol/L (3.5-5.5); Total Bilirubin 0.6 mg/dL (0.2-1.2); Total Protein 5.4 g/dL (6.2-8.2)
[2020-09-03] MEDS ORDERED: propofoL 100 ML IV ONE (13:10)
[2020-09-03] MEDS ORDERED: SODIUM CHLORIDE 0.9% 1,000 ML IV ONE ×2 (13:57→16:21)
[2020-09-03] MEDS ORDERED: NOREPINEPHRINE 8 MG in SODIUM CHLORIDE 0.9% 250 ML IV SCH (14:00)
[2020-09-03] MEDS ORDERED: CISATRACURIUM 200 MG in SODIUM CHLORIDE 0.9% 180 ML IV SCH (14:00)
--- NOTE | 2020-09-03 14:22 | XR ---
EXAMINATION TYPE: XR chest 1V portable DATE OF EXAM: 09/03/2020 COMPARISON: Today HISTORY: Respiratory failure. TECHNIQUE: FINDINGS: Endotracheal tube is 4 cm from the anh. There is diffuse pulmonary interstitial and airs pace edema. Nasogastric tube is in the distal esophagus. Heart size is fairly normal. Trachea is midl ine. IMPRESSION: Endotracheal tube in good position. Pulmonary edema unchanged. Nasogastric tube is in the lower esophagus.
--- NOTE | 2020-09-03 15:04 | P.PN ---
Subjective Progress Note Date: 09/03/20 Principal diagnosis: Patient seen and examined at bedside. Patient's respiratory status has decompensated today. Patient is actively being intubated in the ICU. Patient is alert and awake before sedation was provided. Patient seen and examined at bedside. Patient's respiratory status has decompensated today. Patient is actively being intubated in the ICU. Patient is alert and awake before sedation was provided. Objective - Vital Signs Vital signs: Vital Signs Temp 97.9 F 09/03/20 12:00 Pulse 112 H 09/03/20 14:00 Resp 31 H 09/03/20 14:00 BP 99/34 09/03/20 14:00 Pulse Ox 85 L 09/03/20 14:00 Intake & Output 09/02/20 09/03/20 09/03/20 18:59 06:59 18:59 Intake Total 213 1052.268 Output Total 1160 Balance 213 -107.732 Intake: IV 1050 .9 KVO 50 Sodium Chloride 0.9% 1, 1000 000 ml @ 999 mls/hr IV . Q1H1M ONE Rx#:[id number] Intake, IV Titration 2.268 Amount Cisatracurium 200 mg In 2.268 Sodium Chloride 0.9% 180 ml @ 1 MCG/KG/MIN 6.804 mls/hr IV .Q24H [facility] Rx#: [id number] Blood Product 213 Ffp Pher Conval Covid19 213 Acda 1 Unit [id number] Output: Urine 1160 Other: Voiding Method Bedside Commode Indwelling Catheter # Voids 3 3 1 # Bowel Movements 1 ABP, PAP, CO, CI - Last Documented Arterial Blood Pressure 83/47 - Exam General: [toxic], [acute respiratory distress], [appears at stated age] Derm: [warm], [dry] Head: [atraumatic], [normocephalic], [symmetric] Eyes: [EOMI], [no lid lag], [anicteric sclera] Mouth: [no lip lesion], [mucus membranes moist] Cardiovascular: [S1S2 reg], [no murmur], [positive posterior tibial pulse bilateral], Lungs: [Diminished bilateral], [no rhonchi, no rales] , [no accessory muscle use] Abdominal: [soft], [ nontender to palpation], [no guarding], [no appreciable organomegaly] Ext: [no gross muscle atrophy], [no edema], [no contractures] Neuro: [ CN II-XI grossly intact], [no focal neuro deficits] Psych: [Alert], [oriented], [appropriate affect] - Labs CBC & Chem 7: 09/03/20 11:00 09/03/20 11:00 Labs: Abnormal Lab Results - Last 24 Hours (Table) 09/03/20 09/03/20 09/03/20 Range/Units 08:02 08:02 09:44 WBC 18.2 H (3.8-10.6) k/uL Plt Count (150-450) k/uL Neutrophils # 17.3 H (1.3-7.7) k/uL Lymphocytes # 0.3 L (1.0-4.8) k/uL D-Dimer (<0.60) mg/L FEU ABG pH 7.50 H (7.35-7.45) ABG pCO2 53 H (35-45) mmHg ABG pO2 50 L* (83-108) mmHg ABG HCO3 41 H* (21-25) mmol/L ABG Total CO2 43 H (19-24) mmol/L ABG O2 Saturation 86.4 L (94-97) % Sodium (137-145) mmol/L Potassium (3.5-5.1) mmol/L Chloride 95 L (96-109) mmol/L Carbon Dioxide 37.0 H (21.6-31.8) mmol/L BUN (7-17) mg/dL Creatinine 0.5 L (0.6-1.5) mg/dL BUN/Creatinine Ratio 42.00 H (12.00-20.00) Ratio Glucose 211 H (70-110) mg/dL POC Glucose (mg/dL) (75-99) mg/dL AST (14-36) U/L ALT 58 H (8-44) U/L Total Protein 5.4 L (6.2-8.2) g/dL Albumin 3.50 L (3.80-4.90) g/dL 09/03/20 09/03/20 09/03/20 Range/Units 11:00 11:00 11:00 WBC 18.6 H (3.8-10.6) k/uL Plt Count 451 H (150-450) k/uL Neutrophils # 17.7 H (1.3-7.7) k/uL Lymphocytes # 0.2 L (1.0-4.8) k/uL D-Dimer 1.40 H (<0.60) mg/L FEU ABG pH (7.35-7.45) ABG pCO2 (35-45) mmHg ABG pO2 (83-108) mmHg ABG HCO3 (21-25) mmol/L ABG Total CO2 (19-24) mmol/L ABG O2 Saturation (94-97) % Sodium 135 L (137-145) mmol/L Potassium 3.4 L (3.5-5.1) mmol/L Chloride 88 L (96-109) mmol/L Carbon Dioxide 42 H* (21.6-31.8) mmol/L BUN 19 H (7-17) mg/dL Creatinine (0.6-1.5) mg/dL BUN/Creatinine Ratio (12.00-20.00) Ratio Glucose 241 H (70-110) mg/dL POC Glucose (mg/dL) (75-99) mg/dL AST 47 H (14-36) U/L ALT 69 H (8-44) U/L Total Protein 6.0 L (6.2-8.2) g/dL Albumin 3.2 L (3.80-4.90) g/dL 09/03/20 Range/Units 12:03 WBC (3.8-10.6) k/uL Plt Count (150-450) k/uL Neutrophils # (1.3-7.7) k/uL Lymphocytes # (1.0-4.8) k/uL D-Dimer (<0.60) mg/L FEU ABG pH (7.35-7.45) ABG pCO2 (35-45) mmHg ABG pO2 (83-108) mmHg ABG HCO3 (21-25) mmol/L ABG Total CO2 (19-24) mmol/L ABG O2 Saturation (94-97) % Sodium (137-145) mmol/L Potassium (3.5-5.1) mmol/L Chloride (96-109) mmol/L Carbon Dioxide (21.6-31.8) mmol/L BUN (7-17) mg/dL Creatinine (0.6-1.5) mg/dL BUN/Creatinine Ratio (12.00-20.00) Ratio Glucose (70-110) mg/dL POC Glucose (mg/dL) 227 H (75-99) mg/dL AST (14-36) U/L ALT (8-44) U/L Total Protein (6.2-8.2) g/dL Albumin (3.80-4.90) g/dL Assessment and Plan Assessment: Ventilator dependent Acute hypoxic respiratory failure secondary to COV ID 19 pneumonia Vent management per ICU Pulmonary recommendations appreciated Methylprednisolone 60 every 6 IV push Hypothyroid Continue levothyroxine Obesity Chronic back pain GI and DVT prophylaxis A.m. labs
[2020-09-03 15:10] LABS: ABG Base Excess 11.7 mmol/L; ABG HCO3 37 mmol/L (21-25); ABG Oxygen Saturation 91.5 % (94-97); ABG PCO2 68 mmHg (35-45); ABG PH 7.35 (7.35-7.45); ABG PO2 68 mmHg (83-108); ABG TCO2 39 mmol/L (19-24)
--- NOTE | 2020-09-03 15:41 | PCN ---
PROCEDURE NOTE PROCEDURE PERFORMED: Placement of the right femoral triple-lumen catheter. PREOP DIAGNOSIS: Acute hypoxic respiratory failure. POSTOPERATIVE DIAGNOSIS: Acute hypoxic respiratory failure. ANESTHESIA USED: 2 mL of 1% lidocaine. PROCEDURE DETAILS: The patient was placed in the supine position, the right groin was prepared in a sterile fashion and drapes were applied. The right femoral artery was palpated, and medial to the femoral artery, I cannulated the right femoral vein, and a guidewire was placed. The area around the guidewire was dilated. Then a triple-lumen catheter was inserted over the guidewire, the guidewire was removed. Good flow was noted in the 3 different ports of the triple-lumen catheter. The line was secured using 3.0 silk sutures. No evidence of any immediate complications. MMODL / IJN: [id number] /
--- NOTE | 2020-09-03 15:41 | P.PN ---
Subjective Progress Note Date: 09/03/20 Principal diagnosis: Acute hypoxic respiratory failure secondary to covid19 pneumonitis and ARDS 65-year-old male patient and the patient came into the emergency department yesterday because of generalized weakness shortness of breath. The patient had a pulse ox of 70%. The patient is a nonsmoker. Apparently symptoms of been progressively getting worse over the past 10 days. she originally got sick around [facility] and her symptoms were waxing and waning and progressively she got worse and she ultimately had come to the hospital because of worsening shortness of breath. He had some fever and chills. He had diminished appetite. He had decreased taste and smell. The patient tested positive for COVID 19 by PCR and the patient is currently being treated for this pneumonia. The patient was admitted because of 12.6. The patient has a platelet count of 472. Prese rvation. Positive normal. D-dimer is not elevated at 0.53. The ferritin level is at 360, the patient has a mild transaminitis with an AST of 76, ALP of 65 with an LDH of 1038. CRP is at 63 and appropriate LEVEL IS AT 0.04. REST X-RAY SHOWING NEW BILATERAL INTERSTITIAL INFILTRATION PERIHILAR. THE PATIENT IS CURRENTLY ON OXYGEN AND THE PATIENT IS CURRENTLY ON 15 L TO MAINTAIN A SATURATION ABOVE 90%. She is afebrile. on today's evaluation of 08/22/2020, the patient is a bit struggling with her breathing. She was able to sit up on a chair or morning. Noted the patient was started on a combination of oxygen delivery systems including high flow oxygen at 15 L nasal cannula and 100% nonrebreather facemask to maintain a saturation between 88-92%. She has some limited cough. No significant sputum production. She is laying comfortably in bed. she is having some mild degree of shortness of breath even at rest. She is not using her muscles of breathing. Note that the patient was started on a combination of Decadron and Remdesivir I'm also inclining giving her a unit of convalescence as her condition. no nausea. No vomiting. No diarrhea. No abdominal pain. No altered mentation. on 08/23/2020 16 the patient for a follow-up. The patient is currently on a 15 L high flow oxygen. On and off she is also using the 100% nonrebreather facemask. She is doing well. No specific complaints. She is getting less short of breath. Her lungs are less achy on today's evaluation. No nausea. No vomiting. She is on day 2 of Remdesivir she is also on Decadron. She receives convalescent plasma. No nausea. No vomiting. No diarrhea. On today's evaluation of 08/24/2020, the patient feels that she is doing slightly better. She still on 100% nonrebreather facemask and 15 L of oxygen by nasal cannula. She is afebrile. She is taken Remdesivir day #3 and Decadron. Her inflammatory markers show a d-dimer of 1.47, ferritin level is up to 1059, her LDH level is down to 509 and her CRP level is down to 22.6. No nausea. No vomiting. No diarrhea. She was able to sit up on a recliner all day. Currently she is back in bed. No other new complaints otherwise for now. No improvement in her oxygenation. Her chest x-ray from yesterday showed bilateral airspace disease and some more confluent density in the upper lobes. The patient is seen today 08/25/2020 in follow-up on the regular medical floor. She is currently resting fairly comfortably in bed. She's been up in the chair most of the day. She is still requiring 15 L high flow nasal cannula along with a nonrebreather to maintain O2 saturations in the 90s. She's been afebrile. Hemodynamically stable. D-dimer 1.16. Reactive protein 11.7. She remains on Lovenox 100 mg subcu every 12 hours. Currently on IV Solu-Medrol. Receiving day #4 of Remdesivir. She was given convalescent plasma as well. Chest x-ray continues to reveal stable diffuse increased lung markings bilaterally compatible with atypical pneumonia. The patient is seen today August 31 2020 in follow-up on the regular medical floor. She is currently sitting up at the bedside. Awake and alert in no acute distress. She is breathing a bit better today compared to yesterday. She is still requiring 60 L and 90% of AirVo high flow oxygen to maintain O2 saturation in the 90s. D-dimer 1.04. C-reactive protein 4.4. She is complete course of Remdesivir. She is received convalescent plasma. Currently on IV Solu-Medrol. Lovenox. Vitamin supplements. The patient is seen today 09/01/2020 in follow-up on the regular medical floor. She is awake and alert in no acute distress. Currently sitting up in a chair at the bedside. States breathing easier today compared to yesterday. She remains on AirVo high flow at 60 L and 90% FiO2. She has been slow to progress. Chest x-ray is showing some improvement in the diffuse bilateral lung infiltrates. She completed a course of Remdesivir. She is received convalescent plasma. Currently on IV Solu-Medrol. Lovenox. Vitamin supplements. The patient is seen again today 09/02/2020 in follow-up on the regular medical floor. She is currently sitting up at the bedside. Awake and alert in no acute distress. She feels she is breathing a bit better today compared to yesterday. She does still require 60 L and 90% FiO2 on the AirVo high flow oxygen device along with a nonrebreather mask. She is noted to have some increased edema of the lower extremities. She has basilar crackles and bronchial breath sounds noted. She remains on Lovenox, IV Solu-Medrol, and vitamin supplements. Patient was reevaluated today on 09/03/20, this is shortly after she arrived to the ICU this morning, apparently her clinical status deteriorated this morning, patient could barely oxygenates and saturate properly on 100% FiO2, and BiPAP. ABG showed a pO2 of 49 pCO2 of 53 pH of 7.49, patient received Lasix, and after we were made aware of her ABG, I recommended transferring the patient to the ICU. Shortly after she arrived, patient had lines placed including a triple- lumen catheter, and a right radial arterial line, and recommended to monitor the patient closely in the ICU. Patient was responding well to diuretics, and I felt that she may do well without having to intubate the patient. However few hours later patient decompensated further, and became more tachypneic, d esaturated further, and recommended intubation and mechanical ventilation. Patient was intubated by CAREER DEVELOPMENT DIRECTOR, and shortly after she was intubated she was hypotensive and I recommended fluid boluses again and norepinephrine to be titrated accordingly. Before intubation, patient was on BiPAP with IPAP of 16 EPAP of 6 on the percent FiO2. Objective - Vital Signs Vital signs: Vital Signs Temp 97.9 F 09/03/20 12:00 Pulse 112 H 09/03/20 14:00 Resp 31 H 09/03/20 14:00 BP 99/34 09/03/20 14:00 Pulse Ox 85 L 09/03/20 14:00 Intake & Output 09/02/20 09/03/20 09/03/20 18:59 06:59 18:59 Intake Total 213 1052.268 Output Total 1160 Balance 213 -107.732 Intake: IV 1050 .9 KVO 50 Sodium Chloride 0.9% 1, 1000 000 ml @ 999 mls/hr IV . Q1H1M ONE Rx#:[id number] Intake, IV Titration 2.268 Amount Cisatracurium 200 mg In 2.268 Sodium Chloride 0.9% 180 ml @ 1 MCG/KG/MIN 6.804 mls/hr IV .Q24H [facility] Rx#: [id number] Blood Product 213 Ffp Pher Conval Covid19 213 Acda 1 Unit [id number] Output: Urine 1160 Other: Voiding Method Bedside Commode Indwelling Catheter # Voids 3 3 1 # Bowel Movements 1 ABP, PAP, CO, CI - Last Documented Arterial Blood Pressure 83/47 - Exam GENERAL EXAM: Revealed a 65-year-old female obese, in moderate respiratory distress, on BiPAP. HEAD: Normocephalic. EYES: PERRLA, EOMI, nonicteric. NOSE: Clear with pink turbinates. THROAT: Moist mucous membranes, clear. NECK: Short obese neck, No masses, no JVD. CHEST: No chest wall deformity. LUNGS: Bibasilar crackles and rhonchi noted bilaterally. CVS: Distant S1 and S2, no S3 gallop, no murmur. ABDOMEN: Obese soft nontender no megaly no rebound. SPINE: No scoliosis or deformity SKIN: No rashes CENTRAL NERVOUS SYSTEM: Alert and oriented 3, no gross focal neurologic deficit. Psychiatric: Normal mood, affect and normal mental status examination. EXTREMITIES: There is 1-2+ peripheral edema. No clubbing, no cyanosis. Peripheral pulses are intact. - Labs CBC & Chem 7: 09/03/20 11:00 09/03/20 11:00 Labs: Abnormal Lab Results - Last 24 Hours (Table) 09/03/20 09/03/20 09/03/20 Range/Units 08:02 08:02 09:44 WBC 18.2 H (3.8-10.6) k/uL Plt Count (150-450) k/uL Neutrophils # 17.3 H (1.3-7.7) k/uL Lymphocytes # 0.3 L (1.0-4.8) k/uL D-Dimer (<0.60) mg/L FEU ABG pH 7.50 H (7.35-7.45) ABG pCO2 53 H (35-45) mmHg ABG pO2 50 L* (83-108) mmHg ABG HCO3 41 H* (21-25) mmol/L ABG Total CO2 43 H (19-24) mmol/L ABG O2 Saturation 86.4 L (94-97) % Sodium (137-145) mmol/L Potassium (3.5-5.1) mmol/L Chloride 95 L (96-109) mmol/L Carbon Dioxide 37.0 H (21.6-31.8) mmol/L BUN (7-17) mg/dL Creatinine 0.5 L (0.6-1.5) mg/dL BUN/Creatinine Ratio 42.00 H (12.00-20.00) Ratio Glucose 211 H (70-110) mg/dL POC Glucose (mg/dL) (75-99) mg/dL AST (14-36) U/L ALT 58 H (8-44) U/L Total Protein 5.4 L (6.2-8.2) g/dL Albumin 3.50 L (3.80-4.90) g/dL 09/03/20 09/03/20 09/03/20 Range/Units 11:00 11:00 11:00 WBC 18.6 H (3.8-10.6) k/uL Plt Count 451 H (150-450) k/uL Neutrophils # 17.7 H (1.3-7.7) k/uL Lymphocytes # 0.2 L (1.0-4.8) k/uL D-Dimer 1.40 H (<0.60) mg/L FEU ABG pH (7.35-7.45) ABG pCO2 (35-45) mmHg ABG pO2 (83-108) mmHg ABG HCO3 (21-25) mmol/L ABG Total CO2 (19-24) mmol/L ABG O2 Saturation (94-97) % Sodium 135 L (137-145) mmol/L Potassium 3.4 L (3.5-5.1) mmol/L Chloride 88 L (96-109) mmol/L Carbon Dioxide 42 H* (21.6-31.8) mmol/L BUN 19 H (7-17) mg/dL Creatinine (0.6-1.5) mg/dL BUN/Creatinine Ratio (.00-.00) Ratio Glucose 241 H (70-110) mg/dL POC Glucose (mg/dL) (75-99) mg/dL AST 47 H (14-36) U/L ALT 69 H (8-44) U/L Total Protein 6.0 L (6.2-8.2) g/dL Albumin 3.2 L (3.80-4.90) g/dL 09/03/20 09/03/20 Range/Units 12:03 15:06 WBC (3.8-10.6) k/uL Plt Count (150-450) k/uL Neutrophils # (1.3-7.7) k/uL Lymphocytes # (1.0-4.8) k/uL D-Dimer (<0.60) mg/L FEU ABG pH (7.35-7.45) ABG pCO2 68 H (35-45) mmHg ABG pO2 68 L (83-108) mmHg ABG HCO3 37 H (21-25) mmol/L ABG Total CO2 39 H (19-24) mmol/L ABG O2 Saturation 91.5 L (94-97) % Sodium (137-145) mmol/L Potassium (3.5-5.1) mmol/L Chloride (96-109) mmol/L Carbon Dioxide (21.6-31.8) mmol/L BUN (7-17) mg/dL Creatinine (0.6-1.5) mg/dL BUN/Creatinine Ratio (.00-.00) Ratio Glucose (70-110) mg/dL POC Glucose (mg/dL) 227 H (75-99) mg/dL AST (14-36) U/L ALT (8-44) U/L Total Protein (6.2-8.2) g/dL Albumin (3.80-4.90) g/dL Assessment and Plan Assessment: Impression: Acute hypoxic respiratory failure secondary to covid 19 pneumonitis. And ARDS. Patient required intubation and mechanical ventilation few hours after she was monitored in the ICU. Patient completed her remdesivir, received 2 units of convalescent plasma, on Lovenox, on IV Solu-Medrol, and for some reason patient could not improve significantly and she was all along on relatively high FiO2 while on the medical floor, could not be titrated down, she eventually decompensated and required intubation and mechanical ventilation. Patient was intubated today on 09/03/20. Acute Covid 19 pneumonitis. Chronic back pain. Morbid obesity. Chronic peripheral edema, suspect chronic pulmonary hypertension. And cor pulmonale. Recommendation: Continue ventilatory support. Continue norepinephrine and titrate accordingly. Continue GI and DVT prophylaxis. Continue Lovenox. Nutritional support via enteral feeding. Continue methylprednisolone. Continue to Covid 19th cocktails. Patient did receive full dose of remdesivir, and 2 units of convalescent plasma already. Prognosis is poor and guarded, we'll continue to follow. Critical care time is 35 minutes not including the time spent on procedures. Time with Patient: Greater than 30
--- NOTE | 2020-09-03 15:50 | PCN ---
PROCEDURE NOTE PROCEDURE PERFORMED: Placement of a right radial arterial line. PREOPERATIVE DIAGNOSIS: Acute hypoxic respiratory failure. POSTOPERATIVE DIAGNOSIS: Acute hypoxic respiratory failure. ANESTHESIA: None deployed. PROCEDURE: The right wrist was prepared in a sterile fashion and drapes were applied. The right radial artery was palpated, cannulated, a guidewire was placed. A Cook catheter was inserted over the guidewire, and the guidewire was removed. Good blood flow noted and good waveform noted, no evidence of any immediate complications. The line was secured using 3.0 silk sutures. MMODL / IJN: [id number] /
[2020-09-03 16:12] LABS: Glucose,Whole Blood 170 mg/dL (75-99)
[2020-09-03] MEDS ORDERED: HYDROmorphone 1 MG/ML 1 ML SYRINGE IVP PRN (16:21)
[2020-09-03 16:48] LABS: ABG Base Excess 9.9 mmol/L; ABG HCO3 36 mmol/L (21-25); ABG Oxygen Saturation 82.4 % (94-97); ABG TCO2 39 mmol/L (19-24)
[2020-09-03 16:49] LABS: ABG PCO2 74 mmHg (35-45)
[2020-09-03 16:50] LABS: ABG PO2 54 mmHg (83-108)
[2020-09-03] MEDS ORDERED: SODIUM CHLORIDE 0.9% 50 ML with VASOPRESSIN 20 UNIT IVPB SCH ×2 (17:15)
[2020-09-03] MEDS ORDERED: SODIUM CHLORIDE 0.9% 150 ML with VASOPRESSIN 60 UNIT IV SCH ×2 (17:15)
--- NOTE | 2020-09-03 17:17 | XR ---
EXAMINATION TYPE: XR chest 1V portable DATE OF EXAM: 09/03/2020 COMPARISON: Today HISTORY: Hypoxemia TECHNIQUE: FINDINGS: Endotracheal tube is 5 cm from the anh. There is diffuse airspace infiltrate in the left lung. There is coarse interstitial infiltrate in the right lung. There are chest leads. There is megan ogastric tube with the tip in the stomach. IMPRESSION: Tubing in good position. There are pulmonary infiltrates more on the left side unchanged compared to exam 3 hours ago.
[2020-09-03 18:06] LABS: ABG Base Excess 7.3 mmol/L; ABG HCO3 34 mmol/L (21-25); ABG PH 7.26 (7.35-7.45); ABG TCO2 37 mmol/L (19-24)
[2020-09-03 18:08] LABS: ABG PCO2 78 mmHg (35-45); ABG PO2 51 mmHg (83-108)
[2020-09-03] MEDS ORDERED: SODIUM BICARB 8.4% 50 ML SYR (1 MEQ/ML) IV STA (18:18)
[2020-09-03 19:02] VITALS: RESP 36
[2020-09-03 19:05] LABS: Basophils % (A) 1 %; Eosinophils % (A) 1 %; HCT 45.1 % (34.0-46.0); HGB 13.8 gm/dL (11.4-16.0); Lymphocytes # (A) 0.2 k/uL (1.0-4.8); Lymphocytes % (A) 11 %; MCH 29.3 pg (25.0-35.0); MCHC 30.7 g/dL (31.0-37.0); MCV 95.3 fL (80.0-100.0); Mean Platelet Volume 7.1; Monocytes # (A) 0.1 k/uL (0-1.0); Monocytes % (A) 3 %; Neutrophils # (A) 1.7 k/uL (1.3-7.7); Neutrophils % (A) 83 %; Platelet Count 374 k/uL (150-450); RBC 4.73 m/uL (3.80-5.40); RDW 13.9 % (11.5-15.5)
[2020-09-03 19:20] LABS: Poikilocytosis (M) Present
[2020-09-03] MEDS ORDERED: HEPARIN SODIUM,PORCINE 10,000 UNIT/ML 1 ML VIAL IV ONE (19:49)
[2020-09-03] MEDS ORDERED: HEPARIN SODIUM,PORCINE 5,000 UNIT/ML 1 ML VIAL IV PRN (19:49)
--- NOTE | 2020-09-03 19:58 | XR ---
EXAMINATION TYPE: XR chest 1V portable DATE OF EXAM: 09/03/2020 COMPARISON: Today HISTORY: Hypoxemia TECHNIQUE: FINDINGS: Endotracheal tube is 4.5 cm from the anh. There is nasogastric tube in the stomach there are chest leads. There is diffuse airspace consolidation in the left lung. There is diffuse pulmonar y interstitial and airspace edema bilaterally. The bony thorax is intact IMPRESSION: Left side pulmonary consolidation. Diffuse pulmonary edema. Chest appears the same or sli ghtly worse than exam 3 hours ago.
[2020-09-03] MEDS ORDERED: NOREPINEPHRINE 32 MG in SODIUM CHLORIDE 0.9% 218 ML IV SCH (20:00)
[2020-09-03] MEDS ORDERED: HEPARIN SOD,PORK IN 0.45% NACL 25,000 UNIT in 0.45% NACL 1 250ML.BAG IV SCH (20:00)
[2020-09-03 20:10] LABS: INR 1.1 (<1.2); Prothrombin Time 11.2 sec (9.0-12.0)
[2020-09-03] MEDS ORDERED: VANCOMYCIN IV PER PHARMACY 1 EACH MISC MISCELLANE PRN (20:12)
[2020-09-03] MEDS ORDERED: CHLORHEXIDINE GLUCONATE 15 ML CUP MUCOUS MEM SCH (21:00)
[2020-09-03] MEDS ORDERED: CEFEPIME 2 GM in SODIUM CHLORIDE 0.9% 100 ML IVPB ONE (21:00)
[2020-09-03] MEDS ORDERED: VANCOMYCIN 1,750 MG in SODIUM CHLORIDE 0.9% 500 ML 500 ML IVPB SCH (21:00)
[2020-09-03 21:19] LABS: Glucose,Whole Blood 150 mg/dL (75-99)
[2020-09-03 23:02] VITALS: BP 105/78; TEMP 99.1
[2020-09-04 00:04] VITALS: PULSE 140
[2020-09-04] MEDS ORDERED: SODIUM BICARB 8.4% 50 ML SYR (1 MEQ/ML) ONE (00:07)
[2020-09-04] MEDS ORDERED: EPINEPHrine 10 ML SYRINGE (0.1 MG/ML) ONE (00:07)
[2020-09-04] MEDS ORDERED: CALCIUM CHLORIDE 100 MG/ML 10 ML SYRINGE ONE (00:07)
[2020-09-04 00:16] LABS: Glucose,Whole Blood 147 mg/dL (75-99)
--- NOTE | 2020-09-04 00:33 | PN ---
PROGRESS NOTE DATE OF SERVICE: 09/03/2020 REASON FOR FOLLOWUP: Pneumonia. INTERVAL HISTORY: The patient did have worsening of her respiratory status. Patient did end up getting intubated this afternoon. Patient is currently on 100% FiO2 and she is also hypotensive requiring pressor support. At the time of evaluation, no significant purulent secretion was noticed by nursing staff and no other changes. The patient is not and is unable to provide any history. PHYSICAL EXAMINATION: Blood pressure is 89/54 with a pulse of 135, temperature 98. She is currently 87% on 100% FiO2. General description is a middle-aged female intubated on the vent. RESPIRATORY SYSTEM: Unlabored breathing with decreased intensity of breath sounds. No wheeze. HEART: S1, S2. Regular rate and rhythm. ABDOMEN: Soft, no tenderness. EXTREMITIES: No edema of the feet. LABS: Hemoglobin is 13.8, white count 2.0. DIAGNOSTIC IMPRESSION AND PLAN: Patient with acute respiratory failure which is multifactorial in this patient who did have acute COVID-19 pneumonia complete her remdesivir therapy, now with significant worsening possible ARDS. However, significant hypotension underlying pneumonia, bacterial pneumonia not entirely excluded, will obtain a sputum, blood cultures. Empirically add cefepime and vancomycin and monitor clinical course closely. Overall prognosis remains to be guarded. MMODL / IJN: [id number] /
--- NOTE | 2020-09-04 01:01 | P.EN ---
Code blue team note Activated at 00:07. Arrived on the scene shortly after. The patient was undergoing CPR. Discussed the case with the RN who noted that the patient who is COVID positive had been on maximal non-invasive support on the medical floor and was transferred to the MICU earlier today due to worsening hypoxia. She was intubated in the MICU and was also started on levophed and vasopressin infusions. The patient subsequently lost pulse and Code blue was activated. The patient was noted to be in PEA and was given IVP Epinephrine x 3, Calcium chloride x 1, sodium bicarb x 1. The patient had ROSC at 00:19. Discussed the case in detail with the patient's (Ross) and daughter (Jessica) in person. Discussed the patient's critical condition and her poor overall progn osis. They noted that "she would not have wanted to keep going like this". They requested for no further CPR. The patient was subsequently made No-Code. They wished for all other management to continue at this time. They understood that the patient will likely pass in the next few hours. Consoled the family members and answered questions. Primary team and intensivists notified by the RN.
[2020-09-04] MEDS ORDERED: CEFEPIME 2 GM in SODIUM CHLORIDE 0.9% 100 ML IVPB SCH (09:00)
--- NOTE | 2020-09-05 12:28 | P.DS ---
Providers Date of admission: 08/19/20 19:11 Expected date of discharge: 09/05/20 Attending physician: Melanie Gil DO Consults: 08/20/20 17:39 Consult Physician Routine Consulting Provider: Rickey Zazueta Consult Reason/Comments: covid +, do we need remdesivir?, 8L 90% Do you want consulting provider notified?: Yes 08/20/20 23:39 Consult Physician Routine Consulting Provider: Silvio Pizarro Consult Reason/Comments: covid/hypoxia Do you want consulting provider notified?: Yes Primary care physician: Noel Mckeon MD Hospital Course: Ventilator dependent Acute hypoxic respiratory failure secondary to COV ID 19 pneumonia Vent management per ICU Pulmonary recommendations appreciated Methylprednisolone 60 every 6 IV push Pt was admitted for the above, but unfortunately [facility] called overnight with ROSC, however, upon further GoC discussion with family, patient was converted to comfort measures, and overnight. Pt not seen on rounds today. Plan - Discharge Summary Discharge Rx Participant: No New Discharge Prescriptions: Discontinued Phentermine HCl [Adipex-P] 37.5 mg PO [id number] Levothyroxine Sodium 100 mcg PO DAILY Ibuprofen [Motrin] 800 mg PO TID Hydroxychloroquine Sulfate [Plaquenil] See Taper PO DIRECTED buPROPion XL [Wellbutrin Xl] 150 mg PO DAILY Dexamethasone [Decadron] 6 mg PO DAILY Gabapentin 300 mg PO BID guaiFENesin [Mucinex] 1,200 mg PO BID Follow up Appointment(s)/Referral(s): Noel Mckeon MD [Primary Care Provider] - As Needed (No referral needed, patient .) Discharge Disposition: - Preliminary Cause of Preliminary Cause of : Respiratory Failure
--- NOTE | 2020-09-11 11:06 | CDI ---
Documentation Clarification Form Date: 09/11/2020 10:51:20 AM From: Nini MichaelsMullenJAKE clarke, CCDS Admit Date: 08/19/2020 07:11:00 PM Patient Name: Cari Florez Visit Number: [id number] Discharge Date: 09/04/2020 02:30:00 AM ATTENTION: The Clinical Documentation Specialists (CDI) and [facility] Coding Staff appreciate your assistance in clarifying documentation. Please respond to the clarification below the line at the bottom and electronically sign. The CDI & [facility] Coding staff will review the response and follow-up if needed. Please note: Queries are made part of the Legal Health Record. If you have any questions, please contact the author of this message via ITS. Dr. Jp Francisco: The patient was admitted on 08/19 with COVID 19 pneumonia, her respiratory status declined and she went into PEA on 09/04 requiring CPR, was made comfort measures by her family and subsequently on 09/04. Per the 09/03 Pulmonary Progress Note: "Patient was intubated by INSPECTOR RUBBER STAMP DIE, and shortly after she was intubated she was hypotensive and I recommended fluid boluses again and norepinephrine to be titrated accordingly." Per the 09/03 Infectious Disease Progress Note: "Patient is currently on 100% FiO2 and she is also hypotensive requiring pressor support." Patient history/risk factors: Morbid Obesity w/BMI 41.6, Herniated Discs nos, Hypothyroidism, Osteoarthritis. Non smoker. Clinical Indicators: Presented to the ED on 08/19 with cough, weakness, SOB, fever, chills, decreased appetite, decreased taste & smell, headaches & diarrhea. Diagnosed with COVID 19 Pneumonia and Acute Hypoxic Respiratory Failure. Vitals 08/19: T 98.4, P 84, R 20 (sob), BP 129/83, PO 88 RA - 95 4Lnc - 90 6Lnc 08/21 PO 74 on 8L nc advanced to 15L high flow & nrb 08/29 R 26 (SOB), B 171/73, PO 93 on BiPAP 09/03: T 112^, P R 31^, BP 99/34*, PO 85 (intubated/vent) Treatment 08/19: INH Ventolin, IV fluid bolus 1,000 mls @ 999 mls/hr, IV Rocephin, IV Decadron, Lovenox sq, IV Solumedrol, Vit C, Vit D3, Orazinc. 08/21: IV Remdesivir. 08/22 & 09/02 Received Convalescent Plasma 09/03: Intubated, 100% ventilation, IV Kcl, IV Propofol, IV fluid boluses x2, IV levophed, IV NaBicarb. 09/04 CPR for PEA. In your professional opinion, can you please clarify if the patient was also treated for: Septic Shock o Please clarify if Sepsis with or without Severe Sepsis is present & POA: yes or no o Suspected or known causative organism o Any associated organ failure Cardiogenic Shock o Cause Hypovolemic Shock o Cause Other, please specify Unable to determine (Last Revision: June 2017) Unable to determine MTDD
== END 2020-09-04 02:30 | disposition expired | DRG 208 ==
LOC: EC 16:45 → 6NMEDSUR 19:11 → 2SICU 09-03 10:38
PROVIDERS: ADMIT Internal Medicine; ATTEND Internal Medicine
PROC: XW13325 Transfusion of Convalescent Plasma (Nonautologous) into Peripheral Vein, Percutaneous Approach, New Technology Group 5 (ICD-10-PCS; 2020-08-21)
PROC: XW033E5 Introduction of Remdesivir Anti-infective into Peripheral Vein, Percutaneous Approach, New Technology Group 5 (ICD-10-PCS; 2020-08-21)
PROC: 5A09557 Assistance with Respiratory Ventilation, Greater than 96 Consecutive Hours, Continuous Positive Airway Pressure (ICD-10-PCS; 2020-08-29)
PROC: 0BH17EZ Insertion of Endotracheal Airway into Trachea, Via Natural or Artificial Opening (ICD-10-PCS; principal; 2020-09-03)
PROC: 5A1935Z Respiratory Ventilation, Less than 24 Consecutive Hours (ICD-10-PCS; principal; 2020-09-03)
PROC: 02HV33Z Insertion of Infusion Device into Superior Vena Cava, Percutaneous Approach (ICD-10-PCS; 2020-09-03)
PROC: 03HY32Z Insertion of Monitoring Device into Upper Artery, Percutaneous Approach (ICD-10-PCS; 2020-09-03)
PROC: 4A133J1 Monitoring of Arterial Pulse, Peripheral, Percutaneous Approach (ICD-10-PCS; 2020-09-03)
PROC: 4A133B1 Monitoring of Arterial Pressure, Peripheral, Percutaneous Approach (ICD-10-PCS; 2020-09-03)
PROC: 3E033XZ Introduction of Vasopressor into Peripheral Vein, Percutaneous Approach (ICD-10-PCS; 2020-09-04)
PROC: 5A12012 Performance of Cardiac Output, Single, Manual (ICD-10-PCS; 2020-09-04)
DX: U07.1 COVID-19 (principal); J12.89 Other viral pneumonia; J80 Acute respiratory distress syndrome; J15.6 Pneumonia due to other Gram-negative bacteria; Z68.41 Body mass index [BMI] 40.0-44.9, adult; Z51.5 Encounter for palliative care; I95.9 Hypotension, unspecified; I46.9 Cardiac arrest, cause unspecified; E03.9 Hypothyroidism, unspecified; E66.01 Morbid (severe) obesity due to excess calories; F32.9 Major depressive disorder, single episode, unspecified; M51.26 Other intervertebral disc displacement, lumbar region; G89.29 Other chronic pain; M54.9 Dorsalgia, unspecified; I27.29 Other secondary pulmonary hypertension; Z79.890 Hormone replacement therapy; Z79.899 Other long term (current) drug therapy; Z90.49 Acquired absence of other specified parts of digestive tract; Z90.89 Acquired absence of other organs; Z98.890 Other specified postprocedural states; Z83.3 Family history of diabetes mellitus; Z82.5 Family history of asthma and other chronic lower respiratory diseases; Z82.49 Family history of ischemic heart disease and other diseases of the circulatory system; Z80.7 Family history of other malignant neoplasms of lymphoid, hematopoietic and related tissues
CPT/HCPCS: 36415; 36600; 71045; 80053; 82728; 82805; 83605; 83615; 83735; 84145; 85025; 85379; 85610; 85730; 86140; 86850; 86900; 86901; 87040; 87635; 93005; 94003; 94640; 94660; 94760; 96361; 96372; 96374; 96375; 96376; 99285